=== PATIENT | female | born 1960 | race Caucasian/White ===

== ENCOUNTER → 2019-11-20 09:31 | Outpatient (BNVA) | payer MEDICARE, SELFPAY | PROVIDERS: Family Provider Nurse Practitioner; PCP Nurse Practitioner; Visit Provider Nurse Practitioner | DX: E11.65 Type 2 diabetes mellitus with hyperglycemia (principal); E11.49 Type 2 diabetes mellitus with other diabetic neurological complication; E50.9 Vitamin A deficiency, unspecified | CPT/HCPCS: 80053; 80061; 81003; 82306; 83036 ==

== ENCOUNTER → 2020-02-10 09:51 | Outpatient (BNVA) | payer MEDICARE, SELFPAY | PROVIDERS: Family Provider Nurse Practitioner; PCP Nurse Practitioner; Visit Provider Nurse Practitioner | DX: E11.49 Type 2 diabetes mellitus with other diabetic neurological complication (principal); Z79.4 Long term (current) use of insulin | CPT/HCPCS: 80053; 81000; 83036; 85651 ==

== ENCOUNTER 2020-04-20 06:53 | Outpatient (CLI) | payer MEDICARE, SELFPAY ==
[2020-04-20 07:12] VITALS: BMI 40.2
--- NOTE | 2020-04-20 07:34 | ECG_ITS ---
NAME OF STUDY: LEXISCAN SESTAMIBI STRESS TEST INDICATION: Chest Pain, LEXISCAN STRESS TEST ORDERING PHYSICIAN: Angie CLINICAL INFORMATION: Chest pain INTERPRETATION: 1. The patient was brought to the laboratory where Lexiscan was infused over 20 seconds. The resting blood pressure was 139/74. Maximum blood pressure was 212/66. The resting heart rate was 79 beats per minute. The maximum heart rate is 105 beats per minute. 2. The baseline electrocardiogram sinus rhythm with frequent uniform PVCs. 3. With Lexiscan infusion, there were no ST segment changes to suggest ischemia. 4. The patient experienced no symptoms or arrhythmias during the examination. CONCLUSION: 1. Unremarkable Lexiscan infusion. 2. Nuclear imaging to follow. Electronically Signed On 04-20-2020 15:53:42 CDT by Sander Adams M.D. [email or web address]
--- NOTE | 2020-04-20 07:35 | NMCV_ITS ---
NM riddhi perf SPECT r/s* [id number] Beatrice Gaytan Age: 59 Gender: F : 1960 Exam Date: 04/20/2020 07:54 Ordering Phys: Sander Adams MD ([email or web address]) Technologist: MARION Starks Exam Location: [facility] Indications: Chest pain STRESS TEST Please see separate stress test report in [facility] for full findings IMAGE PROTOCOL Rest/Stress 1 Lexiscan Day Radiopharmaceutical Dose (mCi) Administration Site Administered by Rest: Tc-99m 10.9 IV MARION Starks Sestamibi Stress:Tc-99m 33.0 IV MARION Starks Sestamibi Rest: 20-Apr-2020 60 Discovery 630 Stress: 20-Apr-2020 45 Discovery 630 0.4mg Lexiscan. Images obtained in supine and prone position. SPECT RESULTS Technical Quality: Good Raw Data Analysis: Breast attenuation, Subdiaphragmatic activity Image Corrections: No attenuation or motion correction applied Summed Stress Score: 6 Summed Rest Score: 4 Summed Difference Score: 3 PERFUSION FINDINGS Medium-sized area of patchy decreased tracer uptake noted in mid to distal anterior wall on the rest images which improved significantly over stress images suggestive of artifact. FUNCTIONAL RESULTS (calculated via Gated SPECT) Stress Image LV EF (%): 49 Stress EDV (mL):90 TID: 1.23 Stress ESV (mL):46 Rest Image LV EF (%): 49 FUNCTIONAL FINDINGS: There is normal left ventricular systolic function. IMPRESSIONS This study is negative for ischemia TID ratio was elevated 1.2, which could be secondary to left-ventricular hypertrophy/subendocardial ischemia however cannot rule out multivessel coronary artery disease, clinical correlation advised. EKG segment will be documented separately. Noemy Martini MD (Electronically Signed) Final Date: 21 April 2020 17:41 S
[2020-04-20] MEDS: regadenoson 0.4 Mg/5 ml Syringe IVP (08:46)
[2020-04-20 08:49] VITALS: BP 192/62; PULSE 100
== END 2020-04-20 06:54 | disposition home or self-care (01) ==
LOC: RAD 06:55 → CDL 07:00
PROVIDERS: PCP Nurse Practitioner; Visit Provider Internal Medicine Cardiovascular Disease
DX: R07.9 Chest pain, unspecified (principal); R94.39 Abnormal result of other cardiovascular function study
CPT/HCPCS: 78452; 93017; A9500; J2785

== ENCOUNTER → 2020-05-19 09:01 | Outpatient (BNVA) | payer MEDICARE, SELFPAY | PROVIDERS: PCP Nurse Practitioner; Visit Provider Nurse Practitioner | DX: E11.49 Type 2 diabetes mellitus with other diabetic neurological complication (principal); E78.5 Hyperlipidemia, unspecified; I10 Essential (primary) hypertension; Z79.4 Long term (current) use of insulin; M79.7 Fibromyalgia | CPT/HCPCS: 80053; 80061; 81000; 83036; 85651 ==

== ENCOUNTER → 2020-05-26 10:08 | Outpatient (BNVA) | payer MEDICARE, SELFPAY | PROVIDERS: PCP Nurse Practitioner; Visit Provider Nurse Practitioner | DX: M54.2 Cervicalgia (principal); M54.9 Dorsalgia, unspecified | CPT/HCPCS: 72040; 72072 ==

== ENCOUNTER 2020-06-07 14:44 | Outpatient (CLI) | payer MEDICARE, SELFPAY ==
--- NOTE | 2020-06-07 15:30 | CT_ITS ---
WS: [id number] CT THORACIC SPINE HISTORY: Fracture TECHNIQUE: Contiguous 2.5 mm axial images are reviewed to thoracic spine. Images are reformatted in s agittal and coronal planes. All CT scans at [facility] use at least one of these dose opt imization techniques: automated exposure control; mA and/or kV adjustment per patient size (includes targeted exams where dose is matched to clinical indication); or iterative reconstruction. DLP: 1112.75 mGycm COMPARISON: 05/26/2020 radiographs. Very slight mild anterior wedging of T5 by 10%. No acute fracture lines are evident. No adjacent soft tissue edema. There is mild disc space narrowing and desiccation and small osteophytes throughout th e thoracic spine. T1-2: Normal. T2-3: Normal. T3-4: Normal. T4-5: Normal. T5-6: Normal. T6-7: Normal. T7-8: Normal. T8-9: Normal. T9-10: Normal. T10-11: Normal. T11-12: Normal. Paravertebral soft tissues are normal. CT/CT thoracic spin wo con* [id number] IMPRESSION: 1. Very minimal anterior wedging of T5. No acute fracture line identified. 2. No significant central or foraminal stenosis.
--- NOTE | 2020-06-07 15:45 | CT_ITS ---
WS: [id number] CT LUMBAR SPINE, noncontrast. HISTORY: Low back pain TECHNIQUE: Contiguous 2.5 mm axial imaging are performed. Sagittal and coronal reformats are submitte d and reviewed. All CT scans at [facility] use at least one of these dose optimization te chniques: automated exposure control; mA and/or kV adjustment per patient size (includes targeted exa ms where dose is matched to clinical indication); or iterative reconstruction. IV contrast: None DLP: 1714.17 mGycm COMPARISON: 10/15/2018 Mild straightening of the normal lumbar lordosis. Prior posterior lumbar fusion at L5-S1 with interbo dy spacer. No change in the lucency associated with the LEFT S1 pedicle screw. L5 anterolisthesis by 5 mm is unchanged. Severe disc space narrowing at L5-S1 with posterior osteophytes. L1-2: Normal. L2-3: Mild annular disc bulging. No stenosis. L3-4: Mild annular disc bulging with no stenosis. L4-5: Mild annular disc bulging. Mild ligamentum flavum hypertrophy and facet arthritis. Mild central stenosis and bilateral foraminal stenosis. Similar to the prior study. L5-S1: Osteophytic ridging with large posterior laminectomy defects. No central stenosis. There is os teophyte encroachment into the foramen, RIGHT greater than LEFT. Similar to the prior study. No posto perative complications are evident. Scattered calcification within the aorta. No aneurysm. CT/CT lumbar spine wo con* [id number] IMPRESSION: 1. Status post posterior lumbar fusion at L5-S1 with large laminectomy defects . No complications. 2. Small amount of lucency along the S1 pedicle screw is unchanged. 3. Mild bilateral foraminal narrowing at L4-5 and L5-S1.
== END 2020-06-07 14:45 | disposition home or self-care (01) ==
LOC: RADWPI 14:49
PROVIDERS: Family Provider Nurse Practitioner; PCP Nurse Practitioner; Visit Provider Licensed Practical Nurse
DX: M54.5 Low back pain (principal); S22.050A Wedge compression fracture of T5-T6 vertebra, initial encounter for closed fracture; X58.XXXA Exposure to other specified factors, initial encounter; M43.27 Fusion of spine, lumbosacral region; M48.061 Spinal stenosis, lumbar region without neurogenic claudication
CPT/HCPCS: 72128; 72131

== ENCOUNTER → 2020-08-20 08:35 | Outpatient (BNVA) | payer MEDICARE, SELFPAY | PROVIDERS: Family Provider Nurse Practitioner; PCP Nurse Practitioner; Visit Provider Nurse Practitioner | DX: E11.49 Type 2 diabetes mellitus with other diabetic neurological complication (principal); E78.5 Hyperlipidemia, unspecified; I10 Essential (primary) hypertension; Z79.4 Long term (current) use of insulin; E55.9 Vitamin D deficiency, unspecified | CPT/HCPCS: 80053; 80061; 81000; 82306; 83036 ==

== ENCOUNTER → 2020-11-16 09:02 | Outpatient (BNVA) | payer MEDICARE, SELFPAY | PROVIDERS: Family Provider Nurse Practitioner; PCP Nurse Practitioner; Visit Provider Nurse Practitioner | DX: E11.49 Type 2 diabetes mellitus with other diabetic neurological complication (principal); Z79.4 Long term (current) use of insulin; I10 Essential (primary) hypertension; J43.8 Other emphysema; Z20.828 Contact with and (suspected) exposure to other viral communicable diseases; E55.9 Vitamin D deficiency, unspecified | CPT/HCPCS: 80053; 80061; 81000; 82306; 83036; 85025; 87635 ==

== ENCOUNTER → 2021-02-18 08:10 | Outpatient (BNVA) | payer MEDICARE, SELFPAY | PROVIDERS: Family Provider Nurse Practitioner; PCP Nurse Practitioner; Visit Provider Nurse Practitioner | DX: E55.9 Vitamin D deficiency, unspecified (principal); J43.8 Other emphysema; I10 Essential (primary) hypertension; E11.49 Type 2 diabetes mellitus with other diabetic neurological complication; Z79.4 Long term (current) use of insulin; E78.5 Hyperlipidemia, unspecified | CPT/HCPCS: 80053; 80061; 81000; 82306; 83036 ==

== ENCOUNTER → 2021-02-21 10:08 | Outpatient (BNVA) | payer MEDICARE, SELFPAY | PROVIDERS: Family Provider Nurse Practitioner; PCP Nurse Practitioner; Visit Provider Nurse Practitioner | DX: J43.8 Other emphysema (principal); G62.9 Polyneuropathy, unspecified; I10 Essential (primary) hypertension; E11.49 Type 2 diabetes mellitus with other diabetic neurological complication; E78.5 Hyperlipidemia, unspecified; E11.69 Type 2 diabetes mellitus with other specified complication; G47.00 Insomnia, unspecified; Z79.4 Long term (current) use of insulin | CPT/HCPCS: 82607 ==

== ENCOUNTER → 2021-05-09 09:11 | Outpatient (BNVA) | payer MEDICARE, SELFPAY | PROVIDERS: Family Provider Nurse Practitioner; PCP Nurse Practitioner; Visit Provider Nurse Practitioner | DX: E55.9 Vitamin D deficiency, unspecified (principal); E11.49 Type 2 diabetes mellitus with other diabetic neurological complication; Z79.4 Long term (current) use of insulin; I10 Essential (primary) hypertension; R82.90 Unspecified abnormal findings in urine | CPT/HCPCS: 80053; 80061; 81000; 82306; 83036; 85025; 87077; 87086; 87184 ==

== ENCOUNTER → 2021-05-23 09:03 | Outpatient (BNVA) | payer MEDICARE, SELFPAY | PROVIDERS: Family Provider Nurse Practitioner; PCP Nurse Practitioner; Visit Provider Nurse Practitioner | DX: N39.0 Urinary tract infection, site not specified (principal); B96.20 Unspecified Escherichia coli [E. coli] as the cause of diseases classified elsewhere; R39.15 Urgency of urination | CPT/HCPCS: 81000 ==

== ENCOUNTER → 2021-06-29 15:58 | Outpatient (BNVA) | payer MEDICARE, SELFPAY | PROVIDERS: Family Provider Nurse Practitioner; PCP Nurse Practitioner; Visit Provider Nurse Practitioner Family | DX: M25.532 Pain in left wrist (principal) | CPT/HCPCS: 73110 ==

== ENCOUNTER → 2021-08-10 08:12 | Outpatient (BNVA) | payer MEDICARE, SELFPAY | PROVIDERS: Family Provider Nurse Practitioner; PCP Nurse Practitioner; Visit Provider Nurse Practitioner | DX: E55.9 Vitamin D deficiency, unspecified (principal); I10 Essential (primary) hypertension; E11.40 Type 2 diabetes mellitus with diabetic neuropathy, unspecified; Z79.4 Long term (current) use of insulin | CPT/HCPCS: 80053; 80061; 81000; 82306; 83036 ==

== ENCOUNTER 2021-08-29 07:47 | Outpatient (CLI) | payer MEDICARE, SELFPAY ==
--- NOTE | 2021-08-29 08:12 | MR_ITS ---
WS: [id number] MRI LEFT WRIST without CONTRAST. COMPARISON: Radiograph 06/29/2021 Multiplanar, multisequence imaging is performed without contrast. Nondisplaced fracture is identified at the base of the radial styloid. There is increased T2 signal o n the STIR and proton density sequences at the base of the radial styloid. There is not a significant amount of healing or callus formation or fibrous connection. No significant osteonecrosis of the dis xuan fragment. There are few small cysts within the capitate. The navicular appears intact. Scapholunate interval an d the ligament are negative. There is a small amount of edema within the tendon sheath of the extenso r pollicis brevis tendon and the abductor pollicis longus tendon. No additional soft tissue or bone a bnormalities are identified. MR/MR wrist LT wo con* [id number] IMPRESSION: 1. Nondisplaced and nonunion fracture at the base of the radial styloid. 2. Very mild tenosynovitis in the tendon sheath of the extensor pollicis brevi s and the abductor pollicis longus tendons.
== END 2021-08-29 07:48 | disposition home or self-care (01) ==
PROVIDERS: PCP Nurse Practitioner; Visit Provider Nurse Practitioner
DX: S52.515A Nondisplaced fracture of left radial styloid process, initial encounter for closed fracture (principal); X58.XXXA Exposure to other specified factors, initial encounter; M65.88 Other synovitis and tenosynovitis, other site
CPT/HCPCS: 73221

== ENCOUNTER → 2021-09-19 08:39 | Outpatient (BNVA) | payer MEDICARE, SELFPAY | PROVIDERS: PCP Nurse Practitioner; Visit Provider Family Medicine | DX: E11.40 Type 2 diabetes mellitus with diabetic neuropathy, unspecified (principal); Z79.4 Long term (current) use of insulin | CPT/HCPCS: 81000 ==

== ENCOUNTER → 2021-11-14 09:20 | Outpatient (BNVA) | payer MEDICARE, SELFPAY | PROVIDERS: PCP Nurse Practitioner; Visit Provider Nurse Practitioner | DX: E11.40 Type 2 diabetes mellitus with diabetic neuropathy, unspecified (principal); Z79.4 Long term (current) use of insulin; E55.9 Vitamin D deficiency, unspecified | CPT/HCPCS: 80053; 80061; 81000; 82306; 83036 ==

== ENCOUNTER → 2021-11-16 11:08 | Outpatient (BNVA) | payer MEDICARE, SELFPAY | PROVIDERS: PCP Nurse Practitioner; Visit Provider Nurse Practitioner | DX: S52.515A Nondisplaced fracture of left radial styloid process, initial encounter for closed fracture (principal); X58.XXXA Exposure to other specified factors, initial encounter | CPT/HCPCS: 73110 ==

== ENCOUNTER → 2022-02-14 08:09 | Outpatient (BNVA) | payer MEDICARE, SELFPAY | PROVIDERS: PCP Nurse Practitioner; Visit Provider Nurse Practitioner | DX: E11.49 Type 2 diabetes mellitus with other diabetic neurological complication (principal); Z79.4 Long term (current) use of insulin; E55.9 Vitamin D deficiency, unspecified; N39.0 Urinary tract infection, site not specified | CPT/HCPCS: 80053; 80061; 81000; 82306; 83036; 87077; 87086; 87184 ==

== ENCOUNTER → 2022-02-22 10:05 | Outpatient (BNVA) | payer MEDICARE, SELFPAY | PROVIDERS: PCP Nurse Practitioner; Visit Provider Nurse Practitioner | DX: E11.40 Type 2 diabetes mellitus with diabetic neuropathy, unspecified (principal); Z79.4 Long term (current) use of insulin | CPT/HCPCS: 81000 ==

== ENCOUNTER → 2022-05-22 10:40 | Outpatient (BNVA) | payer MEDICARE, SELFPAY | PROVIDERS: PCP Nurse Practitioner; Visit Provider Nurse Practitioner | DX: E11.49 Type 2 diabetes mellitus with other diabetic neurological complication (principal); Z79.4 Long term (current) use of insulin; I10 Essential (primary) hypertension; E55.9 Vitamin D deficiency, unspecified; E11.65 Type 2 diabetes mellitus with hyperglycemia | CPT/HCPCS: 80053; 80061; 81000; 82306; 83036; 84443; 85025 ==

== ENCOUNTER 2022-07-09 14:00 | Observation (INO) | payer MEDICARE, SELFPAY ==
[2022-07-09] VITALS (9 sets, daily range): BP systolic 100–142; BP diastolic 48–78; PULSE 79–87; RESP 16–20; TEMP 37.8; O2SAT 91–97; BMI 37.4
--- NOTE | 2022-07-09 15:01 | XRR_ITS ---
PROCEDURE INFORMATION: Exam: XR Chest Exam date and time: 07/09/2022 3:52 PM Age: 61 years old Clinical indication: Fever; Additional info: Cough, fever TECHNIQUE: Imaging protocol: Radiologic exam of the chest. Views: 1 view. Other technique: Frontal portable upright view of the chest. COMPARISON: CR Chest 2 views* [id number] 11/22/2015 12:46 PM FINDINGS: Lungs: Left lateral basilar infiltrate. The lungs are otherwise peripherally clear bilaterally. The pulmonary vasculature is normal. Pleural spaces: No definite pleural effusion. No pneumothorax. Heart/Mediastinum: The heart is normal in size and contour. Mediastinum: Stable. Vasculature: Mild aortic arch and descending thoracic aortic atherosclerotic calcification without ectasia. Bones/joints: Stable. XR/XR chest 1V portable [id number] IMPRESSION: Left lateral basilar infiltrate. Pneumonitis is difficult to exclude. Clinical correlation is recommended.
--- NOTE | 2022-07-09 15:28 | W.ED.FEMALGU ---
Documented by User: Maryam Desir MD 07/09/22 18:26 HPI - Female Genitourinary General: Chief complaint: Urogenital-Female Stated complaint: UTI, fever Time Seen by Provider: 07/09/22 14:39 History of Present Illness: This patient is a 61 year old female presenting with fever, cough, sore throat, diarrhea with incontinence and some confusion and weakness. She has lower back pain and body aches. She thinks that she has a kidney infection. She says that she has had UTIs before and that is why she thinks that is the cause of this. She has had symptoms for 3 or 4 days. She has had a fever of 101 - 102 at home. She has many allergies to antibiotics and normally treats her UTIs with natural treatment casper the supervision of Dr. Nowak. She does say that although doxycycline is on her allergy list, she has taken it in the past and tolerated it. Associated symptoms: Reports nausea; Deny abdominal pain or headache(s) Review of Systems Const: Denies: fever(s), chills, fatigue or malaise Eyes: Denies: change in vision ENMT: Reports: throat pain and nasal discharge Card: Denies: chest pain or swelling of feet/ankles Resp: Reports: non-productive cough; Denies: dyspnea or productive cough GI: Reports: nausea and diarrhea; Denies: abdominal pain or vomiting : Reports: flank pain, difficulty voiding and dribbling Musc: Reports: back pain; Denies: neck pain Skin/Breast: Denies: rash Neuro: Denies: headache(s), numbness in extremities or weakness in extremities Endo: Denies: polyuria or polydipsia Eamon/Lymph: Denies: easy bruising or easy bleeding [facility] ED PFSH: Medical History Benign essential hypertension with target blood pressure below 140/90 CAD (coronary artery disease) 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 Jan Cottrell L5-S1 reexploration/fusion/fixation History of colon surgery 1980 History of hysterectomy 1984 History of lumpectomy of left breast 1998 Hx of heart artery stent Family History Mother Lung disease Lung Cancer Heart disease Grandmother Diabetes Family/Other Diabetes Family/Other Heart disease Lung disease Social History Smoking and tobacco status: former smoker Second hand smoke exposure: No Smoking risk assessment/counseling performed?: No Alcohol intake: never Desire information about alcohol rehabilitation?: No Counseling given: No Desire information about substance/drug rehabilitation?: No Counseling given: No Adopted: No Caregiver/support person: No Lives independently: Yes Household members: spouse Housing: House Marital status: service: No Current occupational status: disabled History of recent travel: No Current gender identity: Female Physical Exam Const: COMMON NORMALS: no limitations and alert GENERAL APPEARANCE: cooperative and ill appearing; not comfortable and not well hydrated HENMT: HEAD & SCALP: normal to inspection FACE & SINUS: normal facial exam Eye: GENERAL EYE: appearance normal, both eyes and all related structures Neck/C-Spine: COMMON NORMALS: supple, no meningeal signs and no JVD Chest: COMMONS NORMALS: normal inspection of the chest Resp: COMMON NORMALS: normal respiratory effort, No use of accessory muscles and clear to auscultation bilaterally AUSCULTATION: clear to auscultation bilaterally Cardio: COMMON NORMALS: no JVD, regular rate, regular rhythm and No murmurs present (Cardio) RATE: regular rate RHYTHM: regular rhythm GI: COMMON NORMALS: Normal to inspection, nondistended, normoactive bowel sounds present, Soft to palpation and non-tender INSPECTION: Yes normal to inspection AUSCULTATION: Yes normoactive bowel sounds PALPATION: Yes Soft to palpation Back/Pelvis: COMMON NORMALS: thoracic and lumbar spine normal to inspection Extremity: COMMON NORMALS: normal to inspection Neuro: COMMON NORMALS: moves all extremities, no focal motor deficits and no sensory deficits noted SENSORIUM/ORIENTATION: Yes alert MENINGEAL SIGNS: Yes no meningeal signs Psych: COMMON NORMALS: mental status grossly normal, cooperative and normal affect Skin: COMMON NORMALS: no rashes or lesions noted and turgor normal GENERAL SKIN EXAM: no rashes or lesions noted and turgor normal Course Vital Signs: Vital signs: Vital Signs Temperature 100.1 F H 07/09/22 14:13 Pulse Rate 83 07/09/22 20:00 Respiratory Rate 17 07/09/22 20:00 Blood Pressure 109/78 07/09/22 20:00 Pulse Oximetry 96 07/09/22 20:00 Oxygen Delivery Me thod 07/09/22 18:00 MDM - Female Medical Decision Making Patient appears ill and dehydrated. She has symptoms more suggestive of COVID than a UTI however pyelo is in the differential. She was given IV fluids and hasn't been able to give a urine yet. In and out cath ordered. Renal function is compromised. Covid swab is also still pending. Regardless of results of UA or COVID, she will need to be admitted due to the acute kidney injury. Care turned over to Dr. Moreno at shift change. Lab Data : 07/09/22 16:02 07/09/22 17:05 Radiology Impressions Chest X-Ray 07/09/22 15:01 IMPRESSION: Left lateral basilar infiltrate. Pneumonitis is difficult to exclude. Clinical correlation is recommended. Laboratory Results WBC 9.7 10^3/uL (4.0-10.0) 07/09/22 16:02 RBC 4.14 10^6/uL (4.1-5.3) 07/09/22 16:02 Hgb 12.6 g/dL (11.5-15.3) 07/09/22 16:02 Hct 40.2 % (37.0-47.0) 07/09/22 16:02 MCV 97.1 fl (81-99) 07/09/22 16:02 MCH 30.4 pg (28.0-34.0) 07/09/22 16:02 MCHC 31.3 g/dL (30.0-36.0) 07/09/22 16:02 RDW 14.5 % (12.1-15.1) 07/09/22 16:02 Plt Count 233 10^3/cmm (130-400) 07/09/22 16:02 MPV 10.0 fL (7.4-10.4) 07/09/22 16:02 Neut % (Auto) 55.9 % 07/09/22 16:02 Lymph % (Auto) 26.5 % 07/09/22 16:02 Charlton % (Auto) 16.6 % 07/09/22 16:02 Eos % (Auto) 0.2 % 07/09/22 16:02 Baso % (Auto) 0.4 % 07/09/22 16:02 Neut # (Auto) 5.40 10^3/uL (1.8-7.7) 07/09/22 16:02 Lymph # (Auto) 2.6 10^3/uL (0.8-4.8) 07/09/22 16:02 Charlton # (Auto) 1.6 10^3/uL (0.2-0.9) H 07/09/22 16:02 Eos # (Auto) 0.0 10^3/uL (0.0-0.8) 07/09/22 16:02 Baso # (Auto) 0.0 10^3/uL (0.0-0.1) 07/09/22 16:02 Nucleated RBC % (auto) 0 % 07/09/22 16:02 Nucleated RBCs # 0.0 /100WBC 07/09/22 16:02 Sodium 138 mmol/L (136-145) 07/09/22 17:05 Potassium 4.1 mmol/L (3.5-5.1) 07/09/22 17:05 Chloride 105 mmol/L (98-107) 07/09/22 17:05 Carbon Dioxide 22 mmol/L (22-29) 07/09/22 17:05 Anion Gap 15.1 (5-19) 07/09/22 17:05 BUN 45 mg/dL (8-23) H 07/09/22 17:05 Creatinine 2.2 mg/dL (0.5-0.9) H 07/09/22 17:05 GFR Calculation 22.6 mL/min (90-130) L 07/09/22 17:05 Glucose 148 mg/dL (65-115) H 07/09/22 17:05 Calculated Osmolality 300 mOsm/kg (285-295) H 07/09/22 17:05 Lactic Acid 1.1 mmol/L (0.5-2.2) 07/09/22 17:05 Lactate Cancelled 07/09/22 16:02 Calcium 8.2 mg/dL (8.5-10.5) L 07/09/22 17:05 Total Bilirubin 0.2 mg/dL (0.15-1.2) 07/09/22 17:05 AST 139 U/L (0-32) H 07/09/22 17:05 ALT 99 U/L (0-33) H 07/09/22 17:05 Alkaline Phosphatase 31 U/L (35-105) L 07/09/22 17:05 C-Reactive Protein 4.1 mg/L (0.0-4.9) 07/09/22 17:05 Total Protein 6.8 g/dL (6.6-8.7) 07/09/22 17:05 Albumin 3.7 g/dL (3.5-5.2) 07/09/22 17:05 Globulin 3.1 g/dL (1.3-4.6) 07/09/22 17:05 Lipase 71 U/L (13-60) H 07/09/22 17:05 Procalcitonin 0.15 ng/mL (0-0.5) 07/09/22 17:05 Urine Color Yellow (Yellow) 07/09/22 18:18 Urine Appearance Sl hazy (CLEAR) 07/09/22 18:18 Urine pH 5 (5-7) 07/09/22 18:18 Ur Specific Lindsay 1.015 (1.005-1.030) 07/09/22 18:18 Urine Protein Neg (Negative) 07/09/22 18:18 Urine Glucose (UA) Norm (Normal) 07/09/22 18:18 Urine Ketones 1+ (Negative) H 07/09/22 18:18 Urine Blood Neg (Negative) 07/09/22 18:18 Urine Nitrate Negative (Negative) 07/09/22 18:18 Urine Bilirubin Neg (Negative) 07/09/22 18:18 Urine Urobilinogen Norm mg/dL (Negative) 07/09/22 18:18 Ur Leukocyte Esterase Negative (Negative) 07/09/22 18:18 Urine RBC 0-4 /hpf (0-2) H 07/09/22 18:18 Urine WBC 0-4 /hpf (0-5) H 07/09/22 18:18 Ur Squamous Epith Cells 0-4 /hpf (0-5) H 07/09/22 18:18 Amorphous Sediment Not Reportable 07/09/22 18:18 Urine Bacteria 2+ /hpf (NONE) H 07/09/22 18:18 Hyaline Casts 0-4 /lpf H 07/09/22 18:18 Coronavirus 229E (PCR) Not detected (NOT DETECT) 07/09/22 16:05 SARS-CoV-2 (PCR) Detected (NOT DETECT) A 07/09/22 16:05 Discharge Plan Discharge Patient Disposition: Admitted As Inpatient Clinical Impression: Acute kidney injury, COPD (chronic obstructive pulmonary disease) with emphysema, Diabetes mellitus with neurologic complication, with long-term current use of insulin, Acute dehydration, Diarrhea Condition: Stable Coding Level of Care Code ED Charting Clerk for Chg Fwd Exam Comprehensive Documented by User: Anjum Moreno DO 07/09/22 22:59 HPI - Female Genitourinary General: Chief complaint: Urogenital-Female Stated complaint: UTI, fever Time Seen by Provider: 07/09/22 14:39 PFSH ED PFSH: Medical History Benign essential hypertension with target blood pressure below 140/90 CAD (coronary artery disease) 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 Jan Cottrell L5-S1 reexploration/fusion/fixation History of colon surgery 1980 History of hysterectomy 1984 History of lumpectomy of left breast 1998 Hx of heart artery stent Family History Mother Lung disease Lung Cancer Heart disease Grandmother Diabetes Family/Other Diabetes Family/Other Heart disease Lung disease Social History Smoking and tobacco status: former smoker Second hand smoke exposure: No Smoking risk assessment/counseling performed?: No Alcohol intake: never Desire information about alcohol rehabilitation?: No Counseling given: No Desire information about substance/drug rehabilitation?: No Counseling given: No Adopted: No Caregiver/support person: No Lives independently: Yes Household members: spouse Housing: House Marital status: service: No Current occupational status: disabled History of recent travel: No Current gender identity: Female Course Vital Signs: Vital signs: Vital Signs Temperature 100.1 F H 07/09/22 14:13 Pulse Rate 83 07/09/22 20:00 Respiratory Rate 17 07/09/22 20:00 Blood Pressure 109/78 07/09/22 20:00 Pulse Oximetry 96 07/09/22 20:00 Oxygen Delivery Me thod 07/09/22 18:00 MDM - Female Medical Decision Making Patient appears ill and dehydrated. She has symptoms more suggestive of COVID than a UTI however pyelo is in the differential. She was given IV fluids and hasn't been able to give a urine yet. In and out cath ordered. Renal function is compromised. Covid swab is also still pending. Regardless of results of UA or COVID, she will need to be admitted due to the acute kidney injury. Care turned over to Dr. Moreno at shift change. 61-year-old female who is ill and dehydrated. She was checked out to me by Dr. Roque at shift change. No UTI by urinalysis. She is positive for COVID. She is generally weak. She has JOSE that is significant. She is having trouble walking. She will be observed for hydration, and monitoring of renal function. Hospitalist will see in the ER. Lab Data : 07/09/22 16:02 07/09/22 17:05 Radiology Impressions Chest X-Ray 07/09/22 15:01 IMPRESSION: Left lateral basilar infiltrate. Pneumonitis is difficult to exclude. Clinical correlation is recommended. Laboratory Results WBC 9.7 10^3/uL (4.0-10.0) 07/09/22 16:02 RBC 4.14 10^6/uL (4.1-5.3) 07/09/22 16:02 Hgb 12.6 g/dL (11.5-15.3) 07/09/22 16:02 Hct 40.2 % (37.0-47.0) 07/09/22 16:02 MCV 97.1 fl (81-99) 07/09/22 16:02 MCH 30.4 pg (28.0-34.0) 07/09/22 16: MCHC 31.3 g/dL (30.0-36.0) 07/09/22 16:02 RDW 14.5 % (12.1-15.1) 07/09/22 16:02 Plt Count 233 10^3/cmm (130-400) 07/09/22 16:02 MPV 10.0 fL (7.4-10.4) 07/09/22 16:02 Neut % (Auto) 55.9 % 07/09/22 16:02 Lymph % (Auto) 26.5 % 07/09/22 16:02 Charlton % (Auto) 16.6 % 07/09/22 16:02 Eos % (Auto) 0.2 % 07/09/22 16:02 Baso % (Auto) 0.4 % 07/09/22 16:02 Neut # (Auto) 5.40 10^3/uL (1.8-7.7) 07/09/22 16:02 Lymph # (Auto) 2.6 10^3/uL (0.8-4.8) 07/09/22 16:02 Charlton # (Auto) 1.6 10^3/uL (0.2-0.9) H 07/09/22 16:02 Eos # (Auto) 0.0 10^3/uL (0.0-0.8) 07/09/22 16:02 Baso # (Auto) 0.0 10^3/uL (0.0-0.1) 07/09/22 16:02 Nucleated RBC % (auto) 0 % 07/09/22 16:02 Nucleated RBCs # 0.0 /100WBC 07/09/22 16:02 Sodium 138 mmol/L (136-145) 07/09/22 17:05 Potassium 4.1 mmol/L (3.5-5.1) 07/09/22 17:05 Chloride 105 mmol/L (98-107) 07/09/22 17:05 Carbon Dioxide 22 mmol/L (22-29) 07/09/22 17:05 Anion Gap 15.1 (5-19) 07/09/22 17:05 BUN 45 mg/dL (8-23) H 07/09/22 17:05 Creatinine 2.2 mg/dL (0.5-0.9) H 07/09/22 17:05 GFR Calculation 22.6 mL/min (90-130) L 07/09/22 17:05 Glucose 148 mg/dL (65-115) H 07/09/22 17:05 Calculated Osmolality 300 mOsm/kg (285-295) H 07/09/22 17:05 Lactic Acid 1.1 mmol/L (0.5-2.2) 07/09/22 17:05 Lactate Cancelled 07/09/22 16:02 Calcium 8.2 mg/dL (8.5-10.5) L 07/09/22 17:05 Total Bilirubin 0.2 mg/dL (0.15-1.2) 07/09/22 17:05 AST 139 U/L (0-32) H 07/09/22 17:05 ALT 99 U/L (0-33) H 07/09/22 17:05 Alkaline Phosphatase 31 U/L (35-105) L 07/09/22 17:05 C-Reactive Protein 4.1 mg/L (0.0-4.9) 07/09/22 17:05 Total Protein 6.8 g/dL (6.6-8.7) 07/09/22 17:05 Albumin 3.7 g/dL (3.5-5.2) 07/09/22 17:05 Globulin 3.1 g/dL (1.3-4.6) 07/09/22 17:05 Lipase 71 U/L (13-60) H 07/09/22 17:05 Procalcitonin 0.15 ng/mL (0-0.5) 07/09/22 17:05 Urine Color Yellow (Yellow) 07/09/22 18:18 Urine Appearance Sl hazy (CLEAR) 07/09/22 18:18 Urine pH 5 (5-7) 07/09/22 18:18 Ur Specific Lindsay 1.015 (1.005-1.030) 07/09/22 18:18 Urine Protein Neg (Negative) 07/09/22 18:18 Urine Glucose (UA) Norm (Normal) 07/09/22 18:18 Urine Ketones 1+ (Negative) H 07/09/22 18:18 Urine Blood Neg (Negative) 07/09/22 18:18 Urine Nitrate Negative (Negative) 07/09/22 18:18 Urine Bilirubin Neg (Negative) 07/09/22 18:18 Urine Urobilinogen Norm mg/dL (Negative) 07/09/22 18:18 Ur Leukocyte Esterase Negative (Negative) 07/09/22 18:18 Urine RBC 0-4 /hpf (0-2) H 07/09/22 18:18 Urine WBC 0-4 /hpf (0-5) H 07/09/22 18:18 Ur Squamous Epith Cells 0-4 /hpf (0-5) H 07/09/22 18:18 Amorphous Sediment Not Reportable 07/09/22 18:18 Urine Bacteria 2+ /hpf (NONE) H 07/09/22 18:18 Hyaline Casts 0-4 /lpf H 07/09/22 18:18 Coronavirus 229E (PCR) Not detected (NOT DETECT) 07/09/22 16:05 SARS-CoV-2 (PCR) Detected (NOT DETECT) A 07/09/22 16:05 Discharge Plan Discharge Patient Disposition: Admitted As Inpatient Clinical Impression: Acute kidney injury, COPD (chronic obstructive pulmonary disease) with emphysema, Diabetes mellitus with neurologic complication, with long-term current use of insulin, Acute dehydration, Diarrhea Condition: Stable Coding Level of Care Code ED Charting Clerk for [place] Fwd Exam Comprehensive
[2022-07-09] MEDS: sodium chloride 0.9% 1,000 ML 999 ML IV (16:14)
[2022-07-09 16:22] LABS: Basophils % 0.4 %; Eosinophils % 0.2 %; Hematocrit 40.2 % (37.0-47.0); Hemoglobin 12.6 g/dL (11.5-15.3); Lymphocytes # 2.6 10^3/uL (0.8-4.8); Lymphocytes % 26.5 %; Mean Corpuscular HGB Conc 31.3 g/dL (30.0-36.0); Mean Corpuscular Hemoglobin 30.4 pg (28.0-34.0); Mean Corpuscular Volume 97.1 fl (81-99); Monocytes # 1.6 10^3/uL (0.2-0.9); Monocytes % 16.6 %; Neutrophils % 55.9 %; Nucleated Red Blood Cells % 0 %; Platelet Count 233 10^3/cmm (130-400); Red Blood Count 4.14 10^6/uL (4.1-5.3); Red Cell Distribution Width 14.5 % (12.1-15.1); White Blood Count 9.7 10^3/uL (4.0-10.0)
[2022-07-09 17:38] LABS: Alanine Aminotransferase 99 U/L (0-33); Albumin Level 3.7 g/dL (3.5-5.2); Alkaline Phosphatase 31 U/L (35-105); Anion Gap 15.1 (5-19); Aspartate Amino Transferase 139 U/L (0-32); Blood Urea Nitrogen 45 mg/dL (8-23); Calcium 8.2 mg/dL (8.5-10.5); Carbon Dioxide 22 mmol/L (22-29); Chloride 105 mmol/L (98-107); Globulin 3.1 g/dL (1.3-4.6); Glomerular Filtration Rate 22.6 mL/min (90-130); Glucose 148 mg/dL (65-115); Osmolality Calculated 300 mOsm/kg (285-295); Potassium 4.1 mmol/L (3.5-5.1); Sodium 138 mmol/L (136-145); Total Bilirubin 0.2 mg/dL (0.15-1.2); Total Protein 6.8 g/dL (6.6-8.7)
[2022-07-09 17:39] LABS: Lactic Sepsis W/Reflex 1.1 mmol/L (0.5-2.2)
[2022-07-09 18:03] LABS: Adenovirus Not Detected (NOT DETECT); Chlamydia Pneumoniae Not Detected (NOT DETECT); Coronavirus 229E,HKU1,NL63,OC4 Not Detected (NOT DETECT); Human Metapneumovirus Not Detected (NOT DETECT); Human Rhinovirus/Enterovirus Not Detected (NOT DETECT); Influenza A Not Detected (NOT DETECT); Influenza A H1 Not Detected (NOT DETECT); Influenza A H1-2009 Not Detected (NOT DETECT); Influenza A H3 Not Detected (NOT DETECT); Influenza B Not Detected (NOT DETECT); Mycoplasma Pneumoniae Not Detected (NOT DETECT); Parainfluenza Virus Type 1 Not Detected (NOT DETECT); Parainfluenza Virus Type 2 Not Detected (NOT DETECT); Parainfluenza Virus Type 3 Not Detected (NOT DETECT); Parainfluenza Virus Type 4 Not Detected (NOT DETECT); Respiratory Syncytial Virus A Not Detected (NOT DETECT); Respiratory Syncytial Virus B Not Detected (NOT DETECT); SARS-COV-2 Detected (NOT DETECT)
[2022-07-09 20:24] LABS: Add Urine Microscopic? YES; Bilirubin Urine Neg (Negative); Blood Urine Neg (Negative); Glucose Urine UA Norm (Normal); Ketones Urine 1+ (Negative); Leukocyte Esterase Urine Negative (Negative); Nitrate Urine Negative (Negative); Protein Urine Neg (Negative); Specific Gravity, Urine 1.015 (1.005-1.030); Urine Appearance SL Hazy (CLEAR); Urine Color Yellow (Yellow); Urobilinogen Urine Norm (Negative); pH Urine 5 (5-7)
[2022-07-09 20:25] LABS: Bacteria Urine 2+ /hpf; RBC Urine 0-4 /hpf (0-2); Squamous Epithelial Cell Urine 0-4 /hpf (0-5); WBC Urine 0-4 /hpf (0-5)
[2022-07-09 20:26] LABS: Add Urine Culture? No; Hyaline Casts Urine 0-4 /lpf
[2022-07-09 21:20] LABS: C Reactive Protein 4.1 mg/L (0.0-4.9); Lipase 71 U/L (13-60)
[2022-07-09 21:27] LABS: Procalcitonin 0.15 ng/mL (0-0.5)
--- NOTE | 2022-07-09 22:08 | PM.HP ---
Providers/Chief Complaint Primary Care Provider: MARTINE Pollock Chief Complaint: UTI, fever History of Present Illness Beatrice Gaytan is a 61 year old female with a past medical history of ED, COPD, insulin-dependent type 2 diabetes mellitus, who presents [facility] due to fatigue, malaise, fevers, nausea, shortness of breath. Patient tells me that she has frequent UTIs, she has been having fevers, fatigue, malaise, has multiple antibiotic allergies, she prefers to treat them using alternative medicine, she was seen in urgent care, told to come to [facility] for evaluation due to concerns for UTI and sepsis. She tells me she has not received the COVID-vaccine as she has an adverse reaction to vaccines, does complain of a cough, does have shortness of breath complains, right now she is her primary complaint is diarrhea and weakness. She does have fatigue and malaise Review of Systems Const: Reports: fever(s), chills, body aches, fatigue and malaise Card: Denies: chest pain Resp: Reports: dyspnea and non-productive cough GI: Reports: nausea and diarrhea; Denies: abdominal pain Medications/Allergies Home Medications Medication Instructions Recorded Confirmed Last Taken Type nebulizer and compressor #1 ea 11/24/19 07/09/22 Unknown History nitroglycerin 0.4 mg sublingual 0.4 mg sublingual Q5MIN PRN Chest 11/24/19 07/09/22 Unknown History tablet Pain insulin syringe-needle U-100 1 mL #100 ea 08/12/21 07/09/22 Unknown Rx 31 gauge x 5/16 nebulizer and compressor (Portable #1 ea 08/12/21 07/09/22 Unknown Rx Nebulizer System) blood sugar diagnostic (Easy Touch #100 ea 02/16/22 07/09/22 Unknown Rx Angel Link Test Strip) blood-glucose meter (Easy-Touch #1 ea 02/16/22 07/09/22 Unknown Rx Blood Glucose Meter) lancets 32 gauge (Easy Touch #100 ea 02/16/22 07/09/22 Unknown Rx Lancets) lancing device (Easy Touch Lancing #1 ea 02/16/22 07/09/22 Unknown Rx Device) albuterol sulfate 2.5 mg (3 mL) inhalation Q4H PRN 05/29/22 07/09/22 Unknown Rx shortness of breath or wheezing #180 mL albuterol sulfate 90 mcg/actuation 2 puff inhalation Q6H PRN 05/29/22 07/09/22 Unknown Rx aerosol inhaler shortness of breath or wheezing #18 grams fenofibrate nanocrystallized 145 145 mg PO DAILY #90 tabs 05/29/22 07/09/22 07/08/22 Rx mg tablet furosemide 20 mg tablet 20 mg PO BID PRN edema #180 tabs 05/29/22 07/09/22 07/09/22 Rx insulin glargine 100 unit/mL 40 unit (0.4 mL) SUBCUT DAILY 30 05/29/22 07/09/22 07/09/22 Rx subcutaneous solution days #30 mL insulin lispro 100 unit/mL 12 - 21 unit (0.12 - 0.21 mL) 05/29/22 07/09/22 Unknown Rx subcutaneous solution (Humalog SUBCUT TID 30 days #45 mL U-100 Insulin) lisinopril 20 mg tablet 20 mg PO BID #180 tabs 05/29/22 07/09/22 07/09/22 Rx metoprolol tartrate 100 mg tablet 100 mg PO BID #180 tabs 05/29/22 07/09/22 07/09/22 Rx topiramate 50 mg tablet (Topamax) 50 mg PO BID #180 tabs 05/29/22 07/09/22 07/09/22 Rx trazodone 300 mg tablet 300 mg PO BEDTIME 07/09/22 07/09/22 07/08/22 History Allergies Allergy/AdvReac Type Severity Reaction Status Date / Time aspirin Allergy Unknown Unknown Verified 07/09/22 13:34 bisacodyl Allergy Unknown ALGY-Hives Verified 07/09/22 13:34 [From Dulcolax (bisacodyl)] dextromethorphan Allergy Unknown ALGY-Anaphy Verified 07/09/22 13:34 [From NyQuil] laxis doxycycline Allergy Unknown Unknown Verified 07/09/22 13:34 doxylamine [From NyQuil] Allergy Unknown ALGY-Anaphy Verified 07/09/22 13:34 laxis empagliflozin Allergy Unknown ADR-Itching Verified 07/09/22 13:34 [From Jardiance] epinephrine Allergy Unknown Unknown Verified 07/09/22 13:34 [From Epi E-Z Pen] insulin detemir Allergy Unknown ALGY-Difficulty Verified 07/09/22 13:34 [From Levemir U-100 Insulin] Breathing levofloxacin [From Levaquin] Allergy Unknown Unknown Verified 07/09/22 13:34 nitrofurantoin Allergy Unknown ALGY-Hives Verified 07/09/22 13:34 [From Macrobid] Penicillins Allergy Unknown ALGY-Anaphy Verified 07/09/22 13:34 laxis pseudoephedrine Allergy Unknown ALGY-Hives Verified 07/09/22 13:34 [From Sudafed] acetaminophen [From Tylenol] Allergy ALGY-Hives Verified 07/09/22 13:34 guaifenesin [From Mucinex DM] Allergy Nasal Verified 07/09/22 13:34 Bleed PFSH Acute PFSH: Medical History Benign essential hypertension with target blood pressure below 140/90 CAD (coronary artery disease) 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 Jan Cottrell L5-S1 reexploration/fusion/fixation History of colon surgery 1980 History of hysterectomy 1984 History of lumpectomy of left breast 1998 Hx of heart artery stent Family History Mother Lung disease Lung Cancer Heart disease Grandmother Diabetes Family/Other Diabetes Family/Other Heart disease Lung disease Social History Smoking and tobacco status: former smoker Second hand smoke exposure: No Smoking risk assessment/counseling performed?: No Alcohol intake: never Desire information about alcohol rehabilitation?: No Counseling given: No Desire information about substance/drug rehabilitation?: No Counseling given: No Adopted: No Caregiver/support person: No Lives independently: Yes Household members: spouse Housing: House Marital status: service: No Current occupational status: disabled History of recent travel: No Current gender identity: Female Vitals/I&O/Wt Last Vital Signs Temp 100.1 F H 07/09/22 14:13 Pulse 83 07/09/22 20:00 Resp 17 07/09/22 20:00 BP 109/78 07/09/22 20:00 Pulse Ox 96 07/09/22 20:00 O2 Del Method 07/09/22 18:00 Weight last 48 hrs Weight 102.058 kg Physical Exam Const: COMMON NORMALS: no acute distress and patient oriented x3 HENMT: COMMON NORMALS: normocephalic HEAD & SCALP: normocephalic Eye: COMMON NORMALS: Equal, round and reactive pupils present and EOMs intact bilaterally Neck/C-Spine: COMMON NORMALS: no JVD Resp: COMMON NORMALS: normal respiratory effort, No retractions, No use of accessory muscles and clear to auscultation bilaterally AUSCULTATION: clear to auscultation bilaterally Cardio: COMMON NORMALS: no JVD, regular rate, regular rhythm, S1 normal heart sound present and S2 normal heart sound present RATE: regular rate RHYTHM: regular rhythm HEART SOUNDS: S1 normal heart sound present and S2 normal heart sound present GI: COMMON NORMALS: Normal to inspection, nondistended, normoactive bowel sounds present, Soft to palpation, non-tender, No hepatosplenomegaly present, no masses and no bruits PALPATION: Yes Soft to palpation and Yes No hepatosplenomegaly present Extremity: COMMON NORMALS: capillary refill normal, no clubbing, cyanosis or edema, no calf tenderness and no pedal edema Neuro: COMMON NORMALS: patient oriented x3 Psych: COMMON NORMALS: mental status grossly normal Data : 07/09/22 16:02 07/09/22 17:05 Micro: Microbiology 07/09/22 21:07 Blood Culture - Preliminary Blood SPECIMEN COLLECTED 07/09/22 21:07 Blood Culture - Preliminary Blood SPECIMEN COLLECTED A&P Assessment and plan (1) Acute kidney injury: Status: Acute (2) Acute dehydration: Status: Acute (3) CKD (chronic kidney disease) stage 2, GFR 60-89 ml/min: Status: Chronic (4) Pneumonia due to COVID-19 virus: Status: Acute Plan COVID-19 pneumonia -Sputum cultures, blood cultures -Decadron 6 mg IV push every 24 hours -DuoNebs, budesonide -Patient is not requiring any oxygen, does not qualify for remdesivir -She does qualify for Paxilovid, on discharge -DNR/DNI -Lovenox for DVT prophylaxis Patient does have a left lower lobe infiltrate on chest x-ray, concerning for COVID-19 pneumonia versus secondary bacterial pneumonia -She is very resistant on trying any antibiotics -She is agreeable to try doxycycline -As above Diarrhea, likely secondary COVID-19, monitor IV hydration Transaminitis, likely secondary to COVID-19, monitor Dehydration, IV fluids JOSE on CKD, IV fluids Type 2 diabetes mellitus, Lantus 20 units in the morning, moderate dose sliding scale Hypertension -Hold lisinopril -Continue metoprolol Attestations Medical Necessity Statement*: Patient requires hospitalization for dehydration, diarrhea, COVID-19 pneumonia Coding Level of Care Code Acute 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
[2022-07-10] VITALS (11 sets, daily range): BP systolic 110–139; BP diastolic 67–84; PULSE 65–83; RESP 16–18; TEMP 36.7–37; O2SAT 92–98
[2022-07-10] MEDS: dexamethasone 10 mg/mL INJ 6 MG IVP (00:50)
[2022-07-10] MEDS: sodium chloride 0.9% 1,000 ML 75 ML IV (00:50)
[2022-07-10] MEDS: doxycycline 100 MG in sodium chloride 0.9% (plus) 100 ML IV ×2 (00:51→12:17)
[2022-07-10] MEDS: enoxaparin 40 mg/0.4 mL Syringe SUBCUT (00:52)
[2022-07-10 06:59] LABS: Glucose Point of Care 206 mg/dL (70-110)
[2022-07-10 07:06] LABS: Basophils % 0.5 %; Hematocrit 38.6 % (37.0-47.0); Hemoglobin 12.2 g/dL (11.5-15.3); Lymphocytes # 1.7 10^3/uL (0.8-4.8); Lymphocytes % 39.2 %; Mean Corpuscular HGB Conc 31.6 g/dL (30.0-36.0); Mean Corpuscular Hemoglobin 30.9 pg (28.0-34.0); Mean Corpuscular Volume 97.7 fl (81-99); Mean Platelet Volume 10.2 fL (7.4-10.4); Monocytes # 0.4 10^3/uL (0.2-0.9); Monocytes % 8.5 %; Neutrophils # 2.25 10^3/uL (1.8-7.7); Neutrophils % 51.8 %; Nucleated Red Blood Cells % 0 %; Platelet Count 206 10^3/cmm (130-400); Red Blood Count 3.95 10^6/uL (4.1-5.3); Red Cell Distribution Width 14.2 % (12.1-15.1); White Blood Count 4.3 10^3/uL (4.0-10.0)
[2022-07-10 07:33] LABS: Anion Gap 14.5 (5-19); Blood Urea Nitrogen 40 mg/dL (8-23); Calcium 7.8 mg/dL (8.5-10.5); Carbon Dioxide 21 mmol/L (22-29); Chloride 110 mmol/L (98-107); Glomerular Filtration Rate 38.1 mL/min (90-130); Glucose 202 mg/dL (65-115); Osmolality Calculated 308 mOsm/kg (285-295); Potassium 4.5 mmol/L (3.5-5.1); Sodium 141 mmol/L (136-145); Thyroid Stimulating Hormone 0.73 uIU/mL (0.27-4.20)
[2022-07-10] MEDS: topiramate 25 mg Tablet 50 MG PO (08:50)
[2022-07-10] MEDS: fenofibrate 145 mg Tablet PO (08:50)
[2022-07-10] MEDS: metoprolol tartrate 50 mg Tablet 100 MG PO (08:50)
[2022-07-10] MEDS: insulin lispro 100 unit/1 mL SUBCUT ×2 (08:51→12:22)
[2022-07-10] MEDS: pantoprazole DR 40 mg Tablet PO (08:51)
[2022-07-10] MEDS: budesonide 0.5 mg/2 mL Neb 0.25 MG INHALATION (08:56)
[2022-07-10] MEDS: ipratropium-albuterol 3 mL Neb INHALATION (08:56)
[2022-07-10] MEDS: insulin glargine 100 units/1 mL 20 UNIT SUBCUT (10:46)
[2022-07-10 11:10] LABS: Glucose Point of Care 228 mg/dL (70-110)
--- NOTE | 2022-07-10 16:14 | P.DS_ITS ---
Discharge Providers Date of Admission: 07/09/22 20:52 Date of Discharge: July 10, 2022 Attending Provider at Admission: Kyle oSuza MD Attending Provider at Discharge: Elise Webber MD Primary Care Provider: MARTINE Pollock Diagnoses at Discharge Discharge Diagnosis (1) Acute kidney injury: Status: Resolved (2) Acute dehydration: Status: Resolved (3) CKD (chronic kidney disease) stage 2, GFR 60-89 ml/min: Status: Inactive (4) Pneumonia due to COVID-19 virus: Status: Acute Reason for Visit Reason for Visit: UTI, fever Brief History: 61 year old lady who presented to [facility] with c/o fever. cough, malaise, fatigue and diarrhea. Hospital Course Hospital Course She was found to have COVID 19 pneumonia. Lab abnormalities included transaminitis, JOSE likely as a result of dehydration from diarrhea from acute viral illness. CXR did not show signs of pneumoniatis. She remained on room air during course of admission. Her diarrhea is resolved by the morning. Cr improved to 1.4 from 2.2. She is eager to return home. Given her comorbidities of DM and COPD, unvaccinated status she is at high risk of progression to severe COVID 19. We will prescribe Paxlovid and short steroid course at discharge. Physical Exam Narrative: General: No acute distress, AO x3 HEENT: PERRLA, pupils bilaterally equal and reactive, pallors not present Chest: Normal vesicular breath sounds, no added sounds, equal good air entry bilaterally CVS: S1-S2 regular, no murmurs, no tachycardia, no gallops, no rubs Abdomen: Soft, nontender, no organomegaly, bowel sounds present Neuro: No focal deficits, no facial deformity, AO x3, power 5/5 in all limbs Discharge Data Studies Completed and Pending Completed Studies During Hospitalization Category Date Time Status XR chest 1V portable [id number] Stat Exams 07/09/22 15:01 Completed Pending at discharge Category Date Time Status Basic Metabolic Panel AM LABS Lab 07/11/22 04:00 Ordered Basic Metabolic Panel AM LABS Lab 07/12/22 04:00 Ordered Blood Culture Stat Lab 07/09/22 21:07 Results Complete Blood Count w/Auto AM LABS Lab 07/11/22 04:00 Ordered Complete Blood Count w/Auto AM LABS Lab 07/12/22 04:00 Ordered Magnesium AM LABS Lab 07/11/22 04:00 Ordered Magnesium AM LABS Lab 07/12/22 04:00 Ordered Sputum Culture and Gram Stain Stat Lab 07/09/22 20:56 Uncollected Radiology Impressions Chest X-Ray 07/09/22 15:01 IMPRESSION: Left lateral basilar infiltrate. Pneumonitis is difficult to exclude. Clinical correlation is recommended. Laboratory Results WBC 4.3 10^3/uL (4.0-10.0) 07/10/22 06:44 RBC 3.95 10^6/uL (4.1-5.3) L 07/10/22 06:44 Hgb 12.2 g/dL (11.5-15.3) 07/10/22 06:44 Hct 38.6 % (37.0-47.0) 07/10/22 06:44 MCV 97.7 fl (81-99) 07/10/22 06:44 MCH 30.9 pg (28.0-34.0) 07/10/22 06:44 MCHC 31.6 g/dL (30.0-36.0) 07/10/22 06:44 RDW 14.2 % (12.1-15.1) 07/10/22 06:44 Plt Count 206 10^3/cmm (130-400) 07/10/22 06:44 MPV 10.2 fL (7.4-10.4) 07/10/22 06:44 Neut % (Auto) 51.8 % 07/10/22 06:44 Lymph % (Auto) 39.2 % 07/10/22 06:44 [place] % (Auto) 8.5 % 07/10/22 06:44 Eos % (Auto) 0.0 % 07/10/22 06:44 Baso % (Auto) 0.5 % 07/10/22 06:44 Neut # (Auto) 2.25 10^3/uL (1.8-7.7) 07/10/22 06:44 Lymph # (Auto) 1.7 10^3/uL (0.8-4.8) 07/10/22 06:44 [place] # (Auto) 0.4 10^3/uL (0.2-0.9) 07/10/22 06:44 Eos # (Auto) 0.0 10^3/uL (0.0-0.8) 07/10/22 06:44 Baso # (Auto) 0.0 10^3/uL (0.0-0.1) 07/10/22 06:44 Nucleated RBC % (auto) 0 % 07/10/22 06:44 Nucleated RBCs # 0.0 /100WBC 07/10/22 06:44 Sodium 141 mmol/L (136-145) 07/10/22 06:44 Potassium 4.5 mmol/L (3.5-5.1) 07/10/22 06:44 Chloride 110 mmol/L (98-107) H 07/10/22 06:44 Carbon Dioxide 21 mmol/L (22-29) L 07/10/22 06:44 Anion Gap 14.5 (5-19) 07/10/22 06:44 BUN 40 mg/dL (8-23) H 07/10/22 06:44 Creatinine 1.4 mg/dL (0.5-0.9) H 07/10/22 06:44 GFR Calculation 38.1 mL/min (90-130) L 07/10/22 06:44 Glucose 202 mg/dL (65-115) H 07/10/22 06:44 POC Glucose 228 mg/dL (70-110) H 07/10/22 11:07 Calculated Osmolality 308 mOsm/kg (285-295) H 07/10/22 06:44 Lactic Acid 1.1 mmol/L (0.5-2.2) 07/09/22 17:05 Lactate Cancelled 07/09/22 16:02 Calcium 7.8 mg/dL (8.5-10.5) L 07/10/22 06:44 Magnesium 2.0 mg/dL (1.7-2.3) 07/10/22 06:44 Total Bilirubin 0.2 mg/dL (0.15-1.2) 07/09/22 17:05 AST 139 U/L (0-32) H 07/09/22 17:05 ALT 99 U/L (0-33) H 07/09/22 17:05 Alkaline Phosphatase 31 U/L (35-105) L 07/09/22 17:05 C-Reactive Protein 4.1 mg/L (0.0-4.9) 07/09/22 17:05 Total Protein 6.8 g/dL (6.6-8.7) 07/09/22 17:05 Albumin 3.7 g/dL (3.5-5.2) 07/09/22 17:05 Globulin 3.1 g/dL (1.3-4.6) 07/09/22 17:05 Lipase 71 U/L (13-60) H 07/09/22 17:05 Procalcitonin 0.15 ng/mL (0-0.5) 07/09/22 17:05 TSH 0.73 uIU/mL (0.27-4.20) 07/10/22 06:44 Urine Color Yellow (Yellow) 07/09/22 18:18 Urine Appearance Sl hazy (CLEAR) 07/09/22 18:18 Urine pH 5 (5-7) 07/09/22 18:18 Ur Specific [place] 1.015 (1.005-1.030) 07/09/22 18:18 Urine Protein Neg (Negative) 07/09/22 18:18 Urine Glucose (UA) Norm (Normal) 07/09/22 18:18 Urine Ketones 1+ (Negative) H 07/09/22 18:18 Urine Blood Neg (Negative) 07/09/22 18:18 Urine Nitrate Negative (Negative) 07/09/22 18:18 Urine Bilirubin Neg (Negative) 07/09/22 18:18 Urine Urobilinogen Norm mg/dL (Negative) 07/09/22 18:18 Ur Leukocyte Esterase Negative (Negative) 07/09/22 18:18 Urine RBC 0-4 /hpf (0-2) H 07/09/22 18:18 Urine WBC 0-4 /hpf (0-5) H 07/09/22 18:18 Ur Squamous Epith Cells 0-4 /hpf (0-5) H 07/09/22 18:18 Amorphous Sediment Not Reportable 07/09/22 18:18 Urine Bacteria 2+ /hpf (NONE) H 07/09/22 18:18 Hyaline Casts 0-4 /lpf H 07/09/22 18:18 Coronavirus 229E (PCR) Not detected (NOT DETECT) 07/09/22 16:05 SARS-CoV-2 (PCR) Detected (NOT DETECT) A 07/09/22 16:05 Vitals Last Vital Signs Temp 98.1 F 07/10/22 12:00 Pulse 65 07/10/22 12:00 Resp 16 07/10/22 12:00 BP 110/72 07/10/22 12:00 Pulse Ox 92 07/10/22 12:00 O2 Del Method 07/10/22 12:00 Discharge Plan Discharge Patient Disposition: Home Condition: Stable Prescriptions: New Paxlovid (EUA) 150 mg x 2- 100 mg tablet See Rx Instructions .ROUTE .COMPLEX Qty: 30 0RF Rx Instructions: take TWO 150 mg tablets of nirmatrelvir with ONE 100 mg tablet of ritonavir twice daily for 5 days prednisone 10 mg tablets,dose pack See Rx Instructions .ROUTE .COMPLEX Qty: 21 0RF Rx Instructions: prednisone 5 mg: take 8 tablets (40 mg) on Day 1; 7 tablets (35 mg) on Day 2; then decrease by 1 tablet every day until finished doxycycline hyclate 100 mg capsule 100 mg PO BID 5 Days Qty: 10 0RF Continued nitroglycerin 0.4 mg tablet, sublingual 0.4 mg sublingual Q5MIN PRN (Reason: Chest Pain) (DME) nebulizer and compressor Device See Rx Instructions .ROUTE .MEDSUPPLY Qty: 1 Rx Instructions: As directed (DME) nebulizer and compressor [Portable Nebulizer System] Device See Rx Instructions .ROUTE .MEDSUPPLY Qty: 1 0RF Rx Instructions: As directed (DME) insulin syringe-needle U-100 1 mL 31 gauge x 5/16 syringe See Rx Instructions .ROUTE .MEDSUPPLY Qty: 100 5RF Rx Instructions: 5 times day (DME) blood-glucose meter [Easy-Touch Blood Glucose Meter] Misc See Rx Instructions .Route Qty: 1 0RF Rx Instructions: As directed (DME) Easy Touch Angel Link Test Strip Strip See Rx Instructions .Route Qty: 100 5RF Rx Instructions: 3 time day (DME) lancing device [Easy Touch Lancing Device] Misc See Rx Instructions .Route Qty: 1 0RF Rx Instructions: As directed (DME) Easy Touch Lancets 32 gauge misc See Rx Instructions .Route Qty: 100 5RF Rx Instructions: three times day albuterol sulfate 90 mcg/actuation HFA aerosol inhaler 2 puff INHALATION Q6H PRN (Reason: shortness of breath or wheezing) Qty: 18 2RF albuterol sulfate 2.5 mg /3 mL (0.083 %) solution for nebulization 2.5 mg inhalation Q4H PRN (Reason: shortness of breath or wheezing) Qty: 180 2RF fenofibrate nanocrystallized 145 mg tablet 145 mg PO DAILY Qty: 90 0RF furosemide 20 mg tablet 20 mg PO BID PRN (Reason: edema) Qty: 180 0RF insulin glargine 100 unit/mL solution 40 unit SUBCUT DAILY 30 Days Qty: 30 2RF insulin lispro [Humalog U-100 Insulin] 100 unit/mL solution 12 - 21 unit SUBCUT TID 30 Days Qty: 45 2RF lisinopril 20 mg tablet 20 mg PO BID Qty: 180 0RF metoprolol tartrate 100 mg tablet 100 mg PO BID Qty: 180 0RF topiramate [Topamax] 50 mg tablet 50 mg PO BID Qty: 180 0RF trazodone 300 mg tablet 300 mg PO BEDTIME Discharge Orders: Discharge Order (Routine); Ordered 07/10/22 Ordered By: Elise Webber Referrals: Campbell Rao FNP-C [Primary Care Provider] - 07/24/22 1:20 pm Discharge Diet: Usual diet and Diabetic Discharge Activity: Resume usual activity Patient Instructions: Doxycycline (By mouth), Prednisone (By mouth), Nirmatrelvir/Ritonavir (By mouth) (Paxlovid), COVID-19 (Coronavirus Disease 2019) (GEN), Opioid Safety, Pneumonia Stoplight, Pneumonia - Viral Activity Restrictions/Additional Instructions: Since you were hospitalized due to COVID-19, or you have a weakened immune system, you need to isolate through day 10. * Wear a high-quality mask https://www.cdc.gov/coronavirus/2019-ncov/fwehojr-nxhejsj-tisn/masks.html ?if you must be around others at home and in public. * Do not go places where you are unable to wear a mask. For travel guidance, see CDC?s?Travel webpage https://www.cdc.gov/coronavirus/2019-ncov/larry juarez/index.html#nwp-y-qcpiav . * Do not travel https://www.cdc.gov/coronavirus/2019-ncov/travelers/index.html#kow-p-hdpgoe . * Stay home and separate from others as much as possible. * Use a separate bathroom, if possible. * Take steps to?improve ventilation https://www.cdc.gov/coronavirus/2019-ncov/swejkkc-oobeihm-oazn/prevention.html #ventilation ?at home, if possible. * Don?t share personal household items, like cups, towels, and utensils. * Monitor your?symptoms https://www.cdc.gov/coronavirus/2019-ncov/symptoms-testing/symptoms.html . If you have an?emergency warning sign https://www.cdc.gov/coronavirus/2019-ncov/symptoms-testing/symptoms.html#Emerg ency ?(like trouble breathing), seek emergency medical care immediately. * Learn more about?what to do if you have COVID-19 https://www.cdc.gov/coronavirus/2019-ncov/jw-aqt-aja-sick/ypytg-aiwg-tped.html . Discharge Attestations Time Spent in Discharge Care*: greater than 30 min Quality Metrics Clinical Quality Measures [ No reported AMI, CVA or VTE this stay] Coding Level of Care Code Acute g FW DC note Diagnoses Acute kidney injury N17.9 Acute dehydration E86.0 CKD (chronic kidney disease) stage 2, GFR 60-89 ml/min N18.2 Pneumonia due to COVID-19 virus U07.1; J12.82
--- NOTE | 2022-07-10 16:30 | PC.NURSE ---
IV removed intact patient tolerated well. Patient is A&Ox3. Respirations even and non-labored on room air. Reviewed discharges with patient at this time. Patient verbalized understanding of discharge instructions, new medication and and follow up appointments. Patient wheel chaired to private car.
== END 2022-07-10 16:30 | disposition home or self-care (01) ==
LOC: ER 20:36 → MEDSURG 07-10 05:04 → ER IP 07-10 12:13
PROVIDERS: Emergency Medicine; Physician Assistant; Admitting Provider Family Medicine; Emergency Provider Emergency Medicine; PCP Nurse Practitioner; Visit Provider Student in an Organized Health Care Education/Training Program
DX: U07.1 COVID-19 (principal); J12.82 Pneumonia due to coronavirus disease 2019; N17.9 Acute kidney failure, unspecified; E86.0 Dehydration; I13.10 Hypertensive heart and chronic kidney disease without heart failure, with stage 1 through stage 4 chronic kidney disease, or unspecified chronic kidney disease; E11.22 Type 2 diabetes mellitus with diabetic chronic kidney disease; N18.2 Chronic kidney disease, stage 2 (mild); E11.40 Type 2 diabetes mellitus with diabetic neuropathy, unspecified; R74.01 Elevation of levels of liver transaminase levels; E78.5 Hyperlipidemia, unspecified; J43.9 Emphysema, unspecified; I25.10 Atherosclerotic heart disease of native coronary artery without angina pectoris; I25.2 Old myocardial infarction; Z79.4 Long term (current) use of insulin; Z87.891 Personal history of nicotine dependence; Z95.5 Presence of coronary angioplasty implant and graft; Z28.04 Immunization not carried out because of patient allergy to vaccine or component; Z88.0 Allergy status to penicillin; Z88.1 Allergy status to other antibiotic agents; Z66 Do not resuscitate
CPT/HCPCS: 36415; 36416; 71045; 80048; 80053; 81001; 82962; 83605; 83690; 83735; 84145; 84443; 85025; 86140; 87040; 87635; 94640; 94664; 96361; 96372; 96374; 99285; G0378; J1100; J1650; J1815; J3490; J7030; J7626

== ENCOUNTER → 2022-07-24 14:07 | Outpatient (BNVA) | payer MEDICARE, SELFPAY | PROVIDERS: PCP Nurse Practitioner; Visit Provider Nurse Practitioner | DX: E11.49 Type 2 diabetes mellitus with other diabetic neurological complication (principal); J12.82 Pneumonia due to coronavirus disease 2019; U07.1 COVID-19; Z79.4 Long term (current) use of insulin | CPT/HCPCS: 71046; 80053; 85025 ==

== ENCOUNTER → 2022-08-29 08:45 | Outpatient (BNVA) | payer MEDICARE, SELFPAY | PROVIDERS: PCP Nurse Practitioner; Visit Provider Nurse Practitioner | DX: E11.9 Type 2 diabetes mellitus without complications (principal); E55.9 Vitamin D deficiency, unspecified; I10 Essential (primary) hypertension; M79.7 Fibromyalgia | CPT/HCPCS: 80053; 80061; 81000; 82306; 83036; 84443 ==

== ENCOUNTER → 2022-11-23 08:42 | Outpatient (BNVA) | payer MEDICARE, SELFPAY | PROVIDERS: PCP Nurse Practitioner; Visit Provider Nurse Practitioner | DX: E11.49 Type 2 diabetes mellitus with other diabetic neurological complication (principal); Z79.4 Long term (current) use of insulin; E55.9 Vitamin D deficiency, unspecified | CPT/HCPCS: 80053; 80061; 81000; 82607; 83036; 84443; 85025 ==

== ENCOUNTER → 2023-02-13 08:24 | Outpatient (BNVA) | payer MEDICARE, SELFPAY | PROVIDERS: PCP Nurse Practitioner; Visit Provider Nurse Practitioner | DX: M79.7 Fibromyalgia (principal); E55.9 Vitamin D deficiency, unspecified; E11.49 Type 2 diabetes mellitus with other diabetic neurological complication; Z79.4 Long term (current) use of insulin; I25.10 Atherosclerotic heart disease of native coronary artery without angina pectoris | CPT/HCPCS: 80053; 80061; 81000; 82306; 83036; 84443 ==

== ENCOUNTER → 2023-03-14 11:29 | Outpatient (BNVA) | payer MEDICARE, SELFPAY | PROVIDERS: PCP Nurse Practitioner; Visit Provider Nurse Practitioner | DX: M54.9 Dorsalgia, unspecified (principal); M25.551 Pain in right hip; M25.552 Pain in left hip; Z98.1 Arthrodesis status; M16.0 Bilateral primary osteoarthritis of hip | CPT/HCPCS: 72100; 73522 ==

== ENCOUNTER → 2023-05-07 09:05 | Outpatient (BNVA) | payer MEDICARE, SELFPAY | PROVIDERS: PCP Nurse Practitioner; Visit Provider Nurse Practitioner | DX: E11.49 Type 2 diabetes mellitus with other diabetic neurological complication (principal); Z79.4 Long term (current) use of insulin | CPT/HCPCS: 80053; 83036; 85025 ==

== ENCOUNTER 2023-05-18 07:52 | Outpatient (CLI) | payer MEDICARE, SELFPAY ==
--- NOTE | 2023-05-18 07:45 | CT_ITS ---
WS: [id number] LDCT LUNG CANCER SCREENING HISTORY: Z87.891 - Personal history of nicotine dependence TECHNIQUE: Axial imaging performed from the apices to 1 cm below the costophrenic angles. Coronal and sagittal reformats are submitted with axial MIP series. All CT scans at [facility] use at least one of these dose optimization techniques: automated exposure control; mA and/or kV adjustment per patient size (includes targeted exams where dose is matched to clinical indication); or iterativ e reconstruction. DLP: 106.28 mGy.cm DIvol: Mean CTDIvol: 2.60 (mGy) COMPARISON: None available. Diagnostic quality: Satisfactory Lungs: No pulmonary mass or nodule. No pneumonia. No endobronchial lesions. Heart: Normal size heart with no pericardial effusion.. Moderate coronary artery calcification. Other findings: Mild atherosclerosis aorta. Small hiatal hernia. Hepatic granulomata. No adrenal mass . CT/CT lung screening [id number] IMPRESSION: LUNG-RADS: 1-Negative FOLLOW UP: 12 Month: Continue annual screening with LDCT OTHER FINDINGS (S MODIFIER): None.
== END 2023-05-18 07:53 | disposition home or self-care (01) ==
PROVIDERS: PCP Nurse Practitioner; Visit Provider Nurse Practitioner
DX: Z12.2 Encounter for screening for malignant neoplasm of respiratory organs (principal); Z87.891 Personal history of nicotine dependence
CPT/HCPCS: 71271

== ENCOUNTER → 2023-07-31 09:02 | Outpatient (BNVA) | payer MEDICARE, SELFPAY | PROVIDERS: PCP Nurse Practitioner; Visit Provider Nurse Practitioner | DX: E11.49 Type 2 diabetes mellitus with other diabetic neurological complication (principal); Z79.4 Long term (current) use of insulin | CPT/HCPCS: 80053; 80061; 81000; 82043; 83036; 84443 ==

== ENCOUNTER → 2023-10-22 08:03 | Outpatient (BNVA) | payer MEDICARE, SELFPAY | PROVIDERS: PCP Nurse Practitioner; Visit Provider Nurse Practitioner | DX: E11.49 Type 2 diabetes mellitus with other diabetic neurological complication (principal); Z79.4 Long term (current) use of insulin; I25.10 Atherosclerotic heart disease of native coronary artery without angina pectoris | CPT/HCPCS: 80053; 80061; 83036; 84443 ==

== ENCOUNTER → 2023-10-24 15:04 | Outpatient (BNVA) | payer MEDICARE, SELFPAY | PROVIDERS: PCP Nurse Practitioner; Visit Provider Nurse Practitioner | DX: E11.49 Type 2 diabetes mellitus with other diabetic neurological complication (principal); Z79.4 Long term (current) use of insulin; J43.8 Other emphysema; E78.5 Hyperlipidemia, unspecified; I10 Essential (primary) hypertension; E11.40 Type 2 diabetes mellitus with diabetic neuropathy, unspecified; G47.00 Insomnia, unspecified; R21 Rash and other nonspecific skin eruption | CPT/HCPCS: 86003 ==

== ENCOUNTER → 2023-12-24 16:51 | Outpatient (BNVA) | payer MEDICARE, SELFPAY | PROVIDERS: PCP Nurse Practitioner; Visit Provider Nurse Practitioner Family | DX: H92.09 Otalgia, unspecified ear (principal); J01.10 Acute frontal sinusitis, unspecified | CPT/HCPCS: 87071; 87880 ==

== ENCOUNTER → 2024-01-30 11:12 | Outpatient (BNVA) | payer MEDICARE, SELFPAY | PROVIDERS: PCP Nurse Practitioner; Visit Provider Nurse Practitioner | DX: E11.9 Type 2 diabetes mellitus without complications (principal); E11.49 Type 2 diabetes mellitus with other diabetic neurological complication; Z79.4 Long term (current) use of insulin; J43.8 Other emphysema; E78.5 Hyperlipidemia, unspecified; I10 Essential (primary) hypertension; E11.40 Type 2 diabetes mellitus with diabetic neuropathy, unspecified; G47.00 Insomnia, unspecified; E11.42 Type 2 diabetes mellitus with diabetic polyneuropathy; Z87.891 Personal history of nicotine dependence | CPT/HCPCS: 71046; 80053; 80061; 81000; 83036; 85025 ==

== ENCOUNTER → 2024-04-28 08:19 | Outpatient (BNVA) | payer MEDICARE, SELFPAY | PROVIDERS: PCP Nurse Practitioner; Visit Provider Nurse Practitioner | DX: M79.7 Fibromyalgia (principal); E11.42 Type 2 diabetes mellitus with diabetic polyneuropathy; Z79.4 Long term (current) use of insulin; I25.10 Atherosclerotic heart disease of native coronary artery without angina pectoris | CPT/HCPCS: 80053; 80061; 83036; 84443 ==

== ENCOUNTER → 2024-06-16 14:22 | Outpatient (BNVA) | payer MEDICARE, SELFPAY | PROVIDERS: PCP Nurse Practitioner; Visit Provider Nurse Practitioner | DX: J30.89 Other allergic rhinitis (principal); Z91.018 Allergy to other foods; K21.9 Gastro-esophageal reflux disease without esophagitis | CPT/HCPCS: 86003; 86008 ==

== ENCOUNTER 2024-06-18 11:16 | Outpatient (CLI) | payer MEDICARE, SELFPAY ==
--- NOTE | 2024-06-18 11:27 | XR_ITS ---
WS: [id number] XR thoracic spine 3V* [id number] REASON FOR EXAM: R20.2 - Paresthesia of skin FINDINGS: No significant scoliosis. Mild dorsal kyphosis with mild anterior wedging of the T5 vertebrae. Mild changes of degenerative spondylosis in the upper thoracic spine with mild disc space narrowing a nd mild sclerosis of the endplates with mild osteophytosis. XR/XR thoracic spine 3V* [id number] IMPRESSION: Mild dorsal kyphosis as above. Mild degenerative spondylosis in the upper thoracic spine as above.
== END 2024-06-18 11:17 | disposition home or self-care (01) ==
LOC: RAD 11:20
PROVIDERS: PCP Nurse Practitioner; Visit Provider Nurse Practitioner
DX: R20.2 Paresthesia of skin (principal)
CPT/HCPCS: 72072

== ENCOUNTER → 2024-07-21 09:03 | Outpatient (BNVA) | payer MEDICARE, SELFPAY | PROVIDERS: PCP Nurse Practitioner; Visit Provider Nurse Practitioner | DX: E11.9 Type 2 diabetes mellitus without complications (principal); K21.9 Gastro-esophageal reflux disease without esophagitis | CPT/HCPCS: 80053; 81000; 82785; 83036; 86001; 86003; 87086 ==

== ENCOUNTER → 2024-09-21 11:48 | Outpatient (BNVA) | payer MEDICARE, SELFPAY | PROVIDERS: PCP Nurse Practitioner; Visit Provider Emergency Medicine | DX: M89.8X6 Other specified disorders of bone, lower leg (principal); M25.572 Pain in left ankle and joints of left foot | CPT/HCPCS: 73600 ==

== ENCOUNTER → 2024-10-06 09:08 | Outpatient (BNVA) | payer MEDICARE, SELFPAY | PROVIDERS: PCP Nurse Practitioner; Visit Provider Nurse Practitioner | DX: E11.9 Type 2 diabetes mellitus without complications (principal); E55.9 Vitamin D deficiency, unspecified; N39.0 Urinary tract infection, site not specified | CPT/HCPCS: 80053; 80061; 81000; 82306; 83036; 85025; 87086 ==

== ENCOUNTER 2024-10-15 10:04 | Emergency (ER) | payer MEDICARE, SELFPAY ==
[2024-10-15 10:18] VITALS: BP 144/78; PULSE 70; RESP 16; TEMP 36.7; O2SAT 96; BMI 37.4
--- NOTE | 2024-10-15 10:31 | ED_ITS ---
HPI - Female Genitourinary 2 General: Chief complaint: Urogenital-Female Stated complaint: uti, buring, cold, headache Time Seen by Provider: 10/15/24 10:25 Source: patient Mode of arrival: ambulatory Limitations: no limitations History of Present Illness: 63-year-old female states been having bu rning urination over the last week states she is recently diagnosed UTI by her PCP was prescribed Levaquin but states she is allergic to it so has not taken it she is continue to have burning urination she been having some lower abdominal pain 2 over her bladder denies any vomiting or diarrhea. Associated symptoms: Deny abdominal pain, headache(s) or nausea Related Data Home Medications Medication Instructions Recorded Confirmed acetaminophen 325 mg tablet 325 mg PO QID PRN Pain 10/15/24 10/15/24 (Tylenol) cholecalciferol (vitamin D3) 50 50 mcg PO DAILY 10/15/24 10/15/24 mcg (2,000 unit) tablet (Vitamin D3) cinnamon bark-chromium picolinate 1 cap PO DAILY 10/15/24 10/15/24 500 mg-100 mcg capsule [id number] 1 tab PO DAILY 10/15/24 10/15/24 fumarate 18 mg-folic acid 400 mcg tablet (One-A-Day Women's Complete) Previous Rx's Medication Instructions Recorded nebulizer and compressor (Portable #1 ea 08/12/21 Nebulizer System) blood-glucose meter (Boulder IonicsTouch #1 ea 10/31/22 Verio Flex Start kit) lancets 33 gauge #100 ea 10/24/23 albuterol sulfate 2.5 mg/3 mL 2.5 mg (3 mL) inhalation Q4H PRN 04/30/24 (0.083 %) solution for nebulization shortness of breath or wheezing #180 mL insulin syringe-needle U-100 1 mL #100 ea 07/23/24 31 gauge x 5/16 Lantus U-100 Insulin 100 unit/mL See Rx Instructions SUBCUT DAILY 10/08/24 subcutaneous solution (insulin #40 mL glargine) acarbose 100 mg tablet 100 mg PO TID #270 tabs 10/08/24 albuterol sulfate 90 mcg/actuation 2 puff inhalation Q6H PRN 10/08/24 aerosol inhaler shortness of breath or wheezing #18 grams blood sugar diagnostic (OneTouch #100 ea 10/08/24 Verio test strips) fenofibrate nanocrystallized 48 mg 48 mg PO DAILY #90 tabs 10/08/24 tablet furosemide 20 mg tablet 20 mg PO BID PRN edema #180 tabs 10/08/24 insulin lispro 100 unit/mL 12 - 21 unit (0.12 - 0.21 mL) 10/08/24 subcutaneous solution (Humalog SUBCUT TID 30 days #45 mL U-100 Insulin) lisinopril 20 mg tablet 20 mg PO BID #180 tabs 10/08/24 metoprolol tartrate 100 mg tablet 100 mg PO BID #180 tabs 10/08/24 trazodone 150 mg tablet 300 mg (2 x 150 mg) PO BEDTIME 10/08/24 #180 tabs levofloxacin 250 mg tablet 250 mg PO DAILY #3 tabs 10/14/24 cephalexin 500 mg capsule 500 mg PO TID 7 days #21 caps 10/15/24 Allergies Allergy/AdvReac Type Severity Reaction Status Date / Time aspirin Allergy Unknown Unknown Verified 10/08/24 10:05 bisacodyl Allergy Unknown ALGY-Hives Verified 10/08/24 10:05 [From Dulcolax (bisacodyl)] dextromethorphan Allergy Unknown ALGY-Anaphy Verified 10/08/24 10:05 [From NyQuil] laxis doxylamine [From NyQuil] Allergy Unknown ALGY-Anaphy Verified 10/08/24 10:05 laxis epinephrine Allergy Unknown Unknown Verified 10/08/24 10:05 [From Epi E-Z Pen] insulin detemir Allergy Unknown ALGY-Difficulty Verified 10/08/24 10:05 [From Levemir U-100 Insulin] Breathing nitrofurantoin Allergy Unknown ALGY-Hives Verified 10/08/24 10:05 [From Macrobid] Penicillins Allergy Unknown ALGY-Anaphy Verified 10/08/24 10:05 laxis pseudoephedrine Allergy Unknown ALGY-Hives Verified 10/08/24 10:05 [From Sudafed] acetaminophen [From Tylenol] Allergy ALGY-Hives Verified 10/08/24 10:05 guaifenesin [From Mucinex DM] Allergy Nasal Verified 10/08/24 10:05 Bleed levofloxacin [From Levaquin] AdvReac Mild Foot Verified 10/14/24 18:54 shaking Review of Systems 2 Const: Denies: fever(s), chills, body aches or change in appetite ENMT: Denies: throat pain or dental pain Card: Denies: chest pain Resp: Denies: dyspnea GI: Denies: abdominal pain, nausea, vomiting or diarrhea : Reports: dysuria Musc: Denies: neck pain or back pain Skin/Breast: Denies: rash Neuro: Denies: headache(s) PFSH ED 2 PFSH: Medical History CKD (chronic kidney disease) stage 2, GFR 60-89 ml/min Insomnia disorder Numbness and tingling in right hand Lumbar post-laminectomy syndrome Thoracic compression fracture Left nephrolithiasis Tobacco abuse History of myocardial infarction CAD (coronary artery disease) Generalized neuropathy History of Helicobacter pylori infection History of Royal spotted fever History of Lyme disease Vitamin D deficiency Fibromyalgia COPD (chronic obstructive pulmonary disease) with emphysema Benign essential hypertension with target blood pressure below 140/90 Hyperlipidemia, unspecified Diabetes mellitus with neurologic complication, with long-term current use of insulin History of stomach cancer Surgical History History of colonoscopy 2011 History of back surgery 10/16/2017 Dr. Jan Cottrell L5-S1 reexploration/fusion/fixation History of colon surgery 1979 Hx of heart artery stent History of hysterectomy 1983 History of lumpectomy of left breast 1998 Family History Mother Lung disease Lung Cancer Heart disease Grandmother Diabetes Family/Other Diabetes Family/Other Heart disease Lung disease Social History Smoking and tobacco/nicotine status: former use of tobacco/nicotine Second hand smoke exposure: No Alcohol intake: never Substance/Drug Use: never Adopted: No Caregiver/support person: No Lives independently: Yes Household members: spouse Housing: House Marital status: service: No Current occupational status: disabled Do you think of yourself as: Straight/Heterosexual Current gender identity: Female Physical Exam 2 Const: COMMON NORMALS: no acute distress, patient oriented x3 and healthy appearing HENMT: COMMON NORMALS: normocephalic and atraumatic HEAD & SCALP: n ormocephalic and atraumatic Neck/C-Spine: COMMON NORMALS: full ROM and supple Chest: COMMONS NORMALS: normal inspection of the chest Resp: COMMON NORMALS: normal respiratory effort Cardio: COMMON NORMALS: regular rate, regular rhythm and No murmurs present (Cardio) RATE: regular rate RHYTHM: regular rhythm GI: COMMON NORMALS: Normal to inspection, nondistended, normoactive bowel sounds present, Soft to palpation, non-tender and no masses PALPATION: Yes Soft to palpation Extremity: COMMON NORMALS: normal to inspection and full ROM Neuro: COMMON NORMALS: patient oriented x3, moves all extremities and no focal motor deficits Psych: COMMON NORMALS: mental status grossly normal, Normal thought process present and cooperative THOUGHT PROCESS: Normal thought process present Skin: COMMON NORMALS: no rashes or lesions noted and no wounds GENERAL SKIN EXAM: no rashes or lesions noted Course 2 Vital Signs: Vital signs: Vital Signs Temperature 98.0 F 10/15/24 10:18 Pulse Rate 67 10/15/24 11:05 Respiratory Rate 16 10/15/24 10:18 Blood Pressure 163/84 10/15/24 11:05 Pulse Oximetry 96 10/15/24 11:05 Oxygen Delivery Me thod Room Air 10/15/24 11:05 MDM - Female Medical Decision Making Patient presents here with dysuria she did have a recent UTI and been on antibiotics I did look through the sensitivities is sensitive to ceftriaxone did give her dose here we will prescribe her Keflex for home blood work here is normal abdominal exam is benign she is return if worsening she understands agrees to plan Medical Records I reviewed the patient's medical records. Lab Data I reviewed the patient's lab results. 10/15/24 10:37 10/15/24 10:37 Laboratory Results WBC 10.03 10^3/uL (3.29-11.43) 10/15/24 10:37 RBC 4.78 10^6/uL (3.85-5.65) 10/15/24 10:37 Hgb 14.60 g/dL (11.27-16.99) 10/15/24 10:37 Hct 45.1 % (36-47) 10/15/24 10:37 MCV 94.4 fl (85-98) 10/15/24 10:37 MCH 30.5 pg (27-33) 10/15/24 10:37 MCHC 32.4 g/dL (30-55) 10/15/24 10:37 RDW 13.4 % (12.1-15.1) 10/15/24 10:37 Plt Count 289 10^3/cmm (157-399) 10/15/24 10:37 MPV 9.2 fL (7.4-10.4) 10/15/24 10:37 Neut % (Auto) 53.7 % 10/15/24 10:37 Lymph % (Auto) 32.8 % 10/15/24 10:37 Larue % (Auto) 9.9 % 10/15/24 10:37 Eos % (Auto) 3.0 % 10/15/24 10:37 Baso % (Auto) 0.5 % 10/15/24 10:37 Neut # (Auto) 5.39 10^3/uL (1.8-7.7) 10/15/24 10:37 Lymph # (Auto) 3.3 10^3/uL (0.8-4.8) 10/15/24 10:37 Larue # (Auto) 1.0 10^3/uL (0.2-0.9) H 10/15/24 10:37 Eos # (Auto) 0.3 10^3/uL (0.0-0.8) 10/15/24 10:37 Baso # (Auto) 0.1 10^3/uL (0.0-0.1) 10/15/24 10:37 Nucleated RBC % (auto) 0 % 10/15/24 10:37 Nucleated RBCs # 0.0 /100WBC 10/15/24 10:37 Sodium 140 mmol/L (136-145) 10/15/24 10:37 Potassium 3.8 mmol/L (3.5-5.1) 10/15/24 10:37 Chloride 104 mmol/L (98-107) 10/15/24 10:37 Carbon Dioxide 25 mmol/L (22-29) 10/15/24 10:37 Anion Gap 14.8 (5-19) 10/15/24 10:37 BUN 21 mg/dL (8-23) 10/15/24 10:37 Creatinine 0.8 mg/dL (0.5-0.9) 10/15/24 10:37 GFR Calculation 72.2 mL/min (90-130) L 10/15/24 10:37 Glucose 90 mg/dL (65-115) 10/15/24 10:37 Calculated Osmolality 293 mOsm/kg (285-295) 10/15/24 10:37 Calcium 9.2 mg/dL (8.5-10.5) 10/15/24 10:37 Total Bilirubin 0.2 mg/dL (0.15-1.2) 10/15/24 10:37 AST 15 U/L (0-32) 10/15/24 10:37 ALT 13 U/L (0-33) 10/15/24 10:37 Alkaline Phosphatase 41 U/L (35-105) 10/15/24 10:37 Total Protein 7.8 g/dL (6.6-8.7) 10/15/24 10:37 Albumin 4.0 g/dL (3.5-5.2) 10/15/24 10:37 Globulin 3.8 g/dL (1.3-4.6) 10/15/24 10:37 Urine Color Yellow (Yellow) 10/15/24 10:22 Urine Appearance Clear (CLEAR) 10/15/24 10:22 Urine pH 6.0 (5-7) 10/15/24 10:22 Ur Specific [place] 1.004 (1.005-1.030) L 10/15/24 10:22 Urine Protein Negative (Negative) 10/15/24 10:22 Urine Glucose (UA) Negative (Normal) 10/15/24 10:22 Urine Ketones Negative (Negative) 10/15/24 10:22 Urine Blood Negative (Negative) 10/15/24 10:22 Urine Nitrate Negative (Negative) 10/15/24 10:22 Urine Bilirubin Negative (Negative) 10/15/24 10:22 Urine Urobilinogen 0.2 mg/dL (Negative) 10/15/24 10:22 Ur Leukocyte Esterase Negative (Negative) 10/15/24 10:22 Urine RBC 0-2 /hpf (0-2) 10/15/24 10:22 Urine WBC 0-5 /hpf (0-5) 10/15/24 10:22 Ur Squamous Epith Cells 0-5 /hpf (0-5) 10/15/24 10:22 Amorphous Sediment Not Reportable 10/15/24 10:22 Urine Bacteria 1+ /hpf (NONE) H 10/15/24 10:22 Hyaline Casts 0-4 /lpf H 10/15/24 10:22 No radiology studies performed this visit Discharge Plan Discharge Patient Disposition: Home Clinical Impression: Urinary tract infection Condition: Stable Prescriptions: New cephalexin 500 mg capsule 500 mg PO TID 7 Days Qty: 21 0RF No Action (DME) nebulizer and compressor [Portable Nebulizer System] Device See Rx Instructions .ROUTE .MEDSUPPLY Qty: 1 0RF Rx Instructions: As directed (DME) blood-glucose meter [Boulder IonicsTouch Verio Flex Start] Kit See Rx Instructions .Route Qty: 1 0RF Rx Instructions: use three times day albuterol sulfate 2.5 mg /3 mL (0.083 %) solution for nebulization 2.5 mg inhalation Q4H PRN (Reason: shortness of breath or wheezing) Qty: 180 2RF (DME) insulin syringe-needle U-100 1 mL 31 gauge x 5/16 syringe See Rx Instructions .ROUTE .MEDSUPPLY Qty: 100 5RF Rx Instructions: 5 times day acarbose 100 mg tablet 100 mg PO TID Qty: 270 1RF Rx Instructions: take before food albuterol sulfate 90 mcg/actuation HFA aerosol inhaler 2 puff INHALATION Q6H PRN (Reason: shortness of breath or wheezing) Qty: 18 2RF (DME) OneTouch Verio test strips Strip See Rx Instructions .Route Qty: 100 5RF Rx Instructions: use 3 times day fenofibrate nanocrystallized 48 mg tablet 48 mg PO DAILY Qty: 90 1RF furosemide 20 mg tablet 20 mg PO BID PRN (Reason: edema) Qty: 180 1RF insulin lispro [Humalog U-100 Insulin] 100 unit/mL solution 12 - 21 unit SUBCUT TID 30 Days Qty: 45 2RF insulin glargine [Lantus U-100 Insulin] 100 unit/mL solution See Rx Instructions SUBCUT DAILY Qty: 40 1RF Rx Instructions: up 40 subcutaneously daily; lisinopril 20 mg tablet 20 mg PO BID Qty: 180 1RF metoprolol tartrate 100 mg tablet 100 mg PO BID Qty: 180 1RF trazodone 150 mg tablet 300 mg PO BEDTIME Qty: 180 1RF (DME) lancets 33 gauge misc See Rx Instructions .Route Qty: 100 5RF Rx Instructions: use 3 times levofloxacin 250 mg tablet 250 mg PO DAILY Qty: 3 0RF acetaminophen [Tylenol] 325 mg Tablet 325 mg PO QID PRN (Reason: Pain) cinnamon bark-chromium picolin 500-100 mg-mcg Capsule 1 cap PO DAILY cholecalciferol (vitamin D3) [Vitamin D3] 50 mcg (2,000 unit) Tablet 50 mcg PO DAILY One-A-Day Women's Complete 18 mg iron- 400 mcg Tablet 1 tab PO DAILY Discharge Orders: Discharge ED (Routine); Ordered 10/15/24 Ordered By: Chuck Delarosa Referrals: Campbell Rao FNP-C [Primary Care Provider] - Discharge Diet: Advance as tolerated Discharge Activity: Resume usual activity Patient Instructions: Urinary Tract Infection in Women (ED) Coding Level of Care Code ED Supervisor Plasma for Ivan Denis
[2024-10-15 10:48] LABS: Basophils # 0.1 10^3/uL (0.0-0.1); Basophils % 0.5 %; Eosinophils # 0.3 10^3/uL (0.0-0.8); Hematocrit 45.1 % (36-47); Lymphocytes # 3.3 10^3/uL (0.8-4.8); Lymphocytes % 32.8 %; Mean Corpuscular HGB Conc 32.4 g/dL (30-55); Mean Corpuscular Hemoglobin 30.5 pg (27-33); Mean Corpuscular Volume 94.4 fl (85-98); Mean Platelet Volume 9.2 fL (7.4-10.4); Monocytes % 9.9 %; Neutrophils # 5.39 10^3/uL (1.8-7.7); Neutrophils % 53.7 %; Nucleated Red Blood Cells % 0 %; Platelet Count 289 10^3/cmm (157-399); Red Blood Count 4.78 10^6/uL (3.85-5.65); Red Cell Distribution Width 13.4 % (12.1-15.1); White Blood Count 10.03 10^3/uL (3.29-11.43)
[2024-10-15] MEDS: cefTRIAXone 1,000 mg SDV 1000 MG IVP (11:00)
[2024-10-15 11:05] VITALS: BP 163/84; PULSE 67; O2SAT 96
[2024-10-15 11:05] LABS: Bilirubin Urine Negative (Negative); Blood Urine Negative (Negative); Glucose Urine UA Negative (Normal); Ketones Urine Negative (Negative); Leukocyte Esterase Urine Negative (Negative); Nitrate Urine Negative (Negative); Protein Urine Negative (Negative); Specific Gravity, Urine 1.004 (1.005-1.030); Urine Appearance Clear (CLEAR); Urine Color Yellow (Yellow); Urobilinogen Urine 0.2 mg/dL (Negative)
[2024-10-15 11:06] LABS: Alanine Aminotransferase 13 U/L (0-33); Alkaline Phosphatase 41 U/L (35-105); Anion Gap 14.8 (5-19); Aspartate Amino Transferase 15 U/L (0-32); Blood Urea Nitrogen 21 mg/dL (8-23); Calcium 9.2 mg/dL (8.5-10.5); Carbon Dioxide 25 mmol/L (22-29); Chloride 104 mmol/L (98-107); Creatinine Clr Calc Pharmacy 84.1406; Globulin 3.8 g/dL (1.3-4.6); Glomerular Filtration Rate 72.2 mL/min (90-130); Glucose 90 mg/dL (65-115); Osmolality Calculated 293 mOsm/kg (285-295); Potassium 3.8 mmol/L (3.5-5.1); Sodium 140 mmol/L (136-145); Total Bilirubin 0.2 mg/dL (0.15-1.2); Total Protein 7.8 g/dL (6.6-8.7)
[2024-10-15 11:10] LABS: Add Urine Microscopic? YES; Bacteria Urine 1+ /hpf; Hyaline Casts Urine 0-4 /lpf; RBC Urine 0-2 /hpf (0-2); Squamous Epithelial Cell Urine 0-5 /hpf (0-5); WBC Urine 0-5 /hpf (0-5)
[2024-10-15] MEDS: ibuprofen 600 mg Tablet PO (11:12)
[2024-10-15 12:19] VITALS: BP 133/86; PULSE 63; O2SAT 95
== END 2024-10-15 12:20 | disposition home or self-care (01) ==
PROVIDERS: Emergency Provider Emergency Medicine; PCP Nurse Practitioner
DX: N39.0 Urinary tract infection, site not specified (principal); Z79.4 Long term (current) use of insulin; Z87.891 Personal history of nicotine dependence; E11.22 Type 2 diabetes mellitus with diabetic chronic kidney disease; I12.9 Hypertensive chronic kidney disease with stage 1 through stage 4 chronic kidney disease, or unspecified chronic kidney disease; N18.2 Chronic kidney disease, stage 2 (mild); I25.10 Atherosclerotic heart disease of native coronary artery without angina pectoris; J44.9 Chronic obstructive pulmonary disease, unspecified; E78.5 Hyperlipidemia, unspecified; Z95.5 Presence of coronary angioplasty implant and graft
CPT/HCPCS: 36415; 80053; 81001; 85025; 96374; 99284; J0696

== ENCOUNTER → 2024-12-26 09:14 | Outpatient (BNVA) | payer MEDICARE, SELFPAY | PROVIDERS: PCP Nurse Practitioner; Visit Provider Nurse Practitioner | DX: E11.9 Type 2 diabetes mellitus without complications (principal) | CPT/HCPCS: 80053; 80061; 81000; 82306; 83036; 84443; 85025 ==

== ENCOUNTER → 2025-01-13 16:25 | Outpatient (BNVA) | payer MEDICARE, SELFPAY | PROVIDERS: PCP Nurse Practitioner; Visit Provider Nurse Practitioner | DX: L98.9 Disorder of the skin and subcutaneous tissue, unspecified (principal) | CPT/HCPCS: 88305 ==

== ENCOUNTER → 2025-02-12 07:51 | Outpatient (BNVA) | payer MEDICARE, SELFPAY | PROVIDERS: PCP Nurse Practitioner; Visit Provider Dermatology | DX: L82.1 Other seborrheic keratosis (principal); C44.319 Basal cell carcinoma of skin of other parts of face | CPT/HCPCS: 13132; 17311; 99202 ==

== ENCOUNTER → 2025-04-20 09:22 | Outpatient (BNVA) | payer MEDICARE, SELFPAY | PROVIDERS: PCP Nurse Practitioner; Visit Provider Nurse Practitioner | DX: E11.9 Type 2 diabetes mellitus without complications (principal); E11.42 Type 2 diabetes mellitus with diabetic polyneuropathy; Z79.4 Long term (current) use of insulin | CPT/HCPCS: 80053; 80061; 81000; 83036; 84443; 85025 ==

== ENCOUNTER 2025-06-15 17:57 | Inpatient (IN) | payer MEDICARE, SELFPAY ==
[2025-06-15] VITALS (7 sets, daily range): BP systolic 135–185; BP diastolic 59–94; PULSE 65–74; RESP 14–20; TEMP 36.7; O2SAT 92–96; BMI 39.9; BMI 40.3
--- NOTE | 2025-06-15 17:58 | XRR_ITS ---
PROCEDURE INFORMATION: Exam: XR Chest Exam date and time: 06/15/2025 6:12 PM Age: 64 years old Clinical indication: Pain; Chest pressure; Prior surgery; Surgery date: 6+ months; Surgery type: Cardiac stents; Additional info: Cp TECHNIQUE: Imaging protocol: Radiologic exam of the chest. Views: 1 view. COMPARISON: CR XR chest 2V* [id number] 01/30/2024 11:07 AM FINDINGS: Lungs: Unremarkable. No definite consolidation. Poor visualization of cardiac apex, though not significantly changed compared to prior. Pleural spaces: Unremarkable. No pleural effusion. No pneumothorax. Heart/Mediastinum: Unremarkable. No cardiomegaly. Bones/joints: Unremarkable. XR/XR chest 1V portable [id number] IMPRESSION: No definite acute findings.
--- NOTE | 2025-06-15 18:04 | ECG_ITS ---
[facility] Test Date: 2025-06-15 Pat Name: Beatrice Gaytan Department: Room: Gender: Female Nail Tech: : 1960 Requested By: Chuck Delarosa Order Number: [id number] Solange MD: Eddie Lopez M.D. Measurements Intervals [place] Rate: 73 P: 80 ND: 213 QRS: 42 QRSD: 99 T: 76 QT: 404 QTc: 446 Interpretive Statements SINUS RHYTHM WITH FIRST DEGREE AV BLOCK LOW QRS VOLTAGE IN PRECORDIAL LEADS [QRS DEFLECTION < 1.0 mV IN CHEST LEADS] Compared to ECG 10/20/2015 05:49:48 First degree AV block now present Low QRS voltage now present T-wave abnormality no longer present Electronically Signed On 06-16-2025 23:04:29 CDT by Eddie Lopez M.D. [email or web address]
--- OUTSIDE RECORDS SUMMARY | 2025-06-15 18:08 | XMS_ITS | Clinical Summary ---
Author Organization [facility] Facility Address [address] [place] [id number] Care Team Providers Care Clubhouse Attendant Name Role Phone Unavailable Primary Care Provider Unavailabl e Family History Medical History Relation Comments Autosomal Dominant Polycystic Kidney Disease Fat her 2 Dementia Father 2 Hypertension Father 2 Cancer Mother 2 Dementia Mother 2 Heart disease Mother 2 Hypertension Mother 2 Autosomal Dominant Polycystic Kidney Disease Sib ling Diabetes Sibling Kidney disease Sibling Stroke Sibling Relation Status Comments Father 1 Alive Father 2 Mother 1 Alive Mother 2 Sibling Social History Tobacco Use Types Packs/Day Years Used Date Smoking Tobacco: Every Day Comments Unknown Sex and Gender Information Value Date Recorded Sex Assigned at Not on file Legal Sex Female 12:43 PM EST Gender Identity Not on file Sexual Orientation Not on file Last Filed Vital Signs Vital Sign Reading Time Taken Comments Blood Pressure 152/90 12/17/2017 11: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 Pulse 80 12/17/2017 11: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 Temperature - - Respiratory Rate - - Oxygen Saturation - - Inhaled Oxygen Concentration - - Weight 94.5 kg (208 lb 4.8 oz) 12/17/2017 11: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 Height 165.1 cm (5' 5 ) 12/17/2017 11: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 Body Mass Index 34.66 12/17/2017 11: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 Plan of Treatment Health Maintenance Due Date Last Done Comments Breast Cancer Screening 1960 Pneumococcal Vaccine: 50+ Ye ars (1 of 2 - PCV) 1978 Colorectal Cancer Screening: Annual FOBT 2008 Colorectal Cancer Screening: Colonoscopy 2008 Colorectal Cancer Screening: Sigmoidoscopy 2008 Diabetes: Hemoglobin A1C 01/31/2020 12/11/2018 Diabetes: Ophthalmology Exam 01/31/2020 Diabetes: Pedal Pulse Checked 01/31/2020 Diabetes: Sensory Foot Exam 01/31/2020 Diabetes: Visual Foot Exam 01/31/2020 Influenza Vaccine (#1) 2025 Hepatitis B Vaccine Aged Out No longe r eligible based on patient's age to complete this topic Procedures Procedure Name Priority Date/Time Associated Diagnosis Comments HEMOGLOBIN A1C Routine 12/11/2018 from Last 3 Months or Most Recently Relevant to Health Maintenance Results * (ABNORMAL) Hemoglobin A1c (12/11/2018) Hemoglobin A1C 8.0(A) 4.0 - 6.0 Blood specimen (specimen) Venous blood / Unknown 12/11/2018 Narrative Dagmar Medellin MA - 01/21/2019 12:27 PM [facility] [address] [place] [address] Dr. Raoul Abrams, Mobile Sales Assistant Campbell JENSEN LAB BLOOD ORDERABLES Final Result from Last 3 Months or Most Recently Relevant to Health Maintenance
--- OUTSIDE RECORDS SUMMARY | 2025-06-15 18:08 | XMS_ITS | Encounter Summary ---
Author Organization [facility], [facility] Address [address] [facility] [address] [place] [address] Phone Care Team Providers Care Civil Preparedness Coordinator Name Role Phone Unavailable Primary Care Provider Unavailabl e Encounter Details Date Type Department Care Team (Late st Contact Info) Description 01/21/2019 Documentation Only [facility], [facility] [address] [place] [address] Scan, Generic Provider Social History Tobacco Use Types Packs/Day Years Used Date Smoking Tobacco: Every Day Comments Unknown Sex and Gender Information Value Date Recorded Sex Assigned at Not on file Legal Sex Female 12:43 PM EST Gender Identity Not on file Sexual Orientation Not on file documented as of this encounter Plan of Treatment Not on file documented as of this encounter Visit Diagnoses Not on filedocumented in this encounter
--- NOTE | 2025-06-15 18:26 | ED_ITS ---
HPI - Chest Pain 2 General: Chief Complaint: Chest Pain Stated Complaint: Chest and Back Pain\SON Time Seen by Provider: 06/15/25 18:16 History of Present Illness: Patient comes in with chest pain. States that all day she has been having off-and-on midsternal chest pain which she describes as a pressure, last for about 4 minutes at a time. States it radiates into the middle of her back. States she has a history of coronary artery disease status post multiple stents. States a couple years ago she was told she needed 1 in the back of her heart which is what she is concerned about today. States she still smokes. Will check labs, EKG, hold on the aspirin as she states she is allergic to it, and reassess. Associated symptoms: Reports dyspnea; Deny abdominal pain, fever(s), nausea, palpitations or vomiting Related Data Home Medications ?Medication ?Instructions ?Recorded ?Confirmed acetaminophen 325 mg tablet 325 mg PO QID PRN Pain 03/0505/04/25 (Tylenol) cholecalciferol (vitamin D3) 50 50 mcg PO DAILY 05/04/25 mcg (2,000 unit) tablet (Vitamin D3) cinnamon bark-chromium picolinate 1 cap PO DAILY 10/1505/04/25 500 mg-100 mcg capsule hffgbqwngksg-hfycpbqy-qezr 1 tab PO DAILY 10/15/24 fumarate 18 mg-folic acid 400 mcg tablet (One-A-Day Women's Complete) Previous Rx's ?Medication ?Instructions ?Recorded nebulizer and compressor (Portable #1 ea 08/12/21 Nebulizer System) blood-glucose meter (OneTouch #1 ea 10/31/22 Verio Flex Start kit) lancets 33 gauge #100 ea 10/24/23 blood-glucose,pellet preparation operator,cont #1 ea 12/30/24 (FreeStyle Shanon 3 [place]) Lantus U-100 Insulin 100 unit/mL See Rx Instructions S UBCUT DAILY 05/04/25 subcutaneous solution (insulin #40 mL glargine) acarbose 100 mg tablet 100 mg PO TID #270 tabs 04/13 02/03 albuterol sulfate 2.5 mg/3 mL 2.5 mg (3 mL) inhalation Q4H PRN 05/04/25 (0.083 %) solution for nebulization shortness of breat h or wheezing #180 mL albuterol sulfate 90 mcg/actuation 2 puff inhalation Q 6H PRN 05/04/25 aerosol inhaler shortness of breath or wheez ing #18 grams blood sugar diagnostic (OneTouch #100 ea 05/04/25 Verio test strips) blood-glucose sensor (FreeStyle #2 ea 05/04/25 Shnaon 3 Plus Sensor device) fenofibrate nanocrystallized 48 mg 48 mg PO DAILY #90 tabs 05/04/25 tablet furosemide 20 mg tablet 20 mg PO BID PRN edema #180 tabs 05/04/25 insulin lispro 100 unit/mL 12 - 21 unit (0.12 - 0.21 m L) 05/04/25 subcutaneous solution (Humalog SUBCUT TID 30 days #45 mL U-100 Insulin) insulin syringe-needle U-100 1 mL #100 ea 05/04/25 31 gauge x 5/16 lisinopril 20 mg tablet 20 mg PO BID #180 tabs 05/04 metoprolol tartrate 100 mg tablet 100 mg PO BID #180 t abs 05/04/25 trazodone 150 mg tablet 300 mg (2 x 150 mg) PO BEDTI ME 05/04/25 #180 tabs Allergies Allergy/AdvReac Type Severity Reaction Status Date / Time aspirin Allergy Unknown Unknown Verified 06/15/25 18:09 bisacodyl (From Dulcolax Allergy Unknown ALGY-Hives Verified 06/15/25 18:09 (bisacodyl)) dextromethorphan (From Allergy Unknown ALGY-Anaphy Verified 06/15/25 18:09 NyQuil) laxis doxylamine (From NyQuil) Allergy Unknown ALGY-Anaphy Verified 06/15/25 18:09 laxis insulin detemir (From Allergy Unknown ALGY-Difficulty Verified 06/15/25 18:09 Levemir U-100 Insulin) Breathing nitrofurantoin (From Allergy Unknown ALGY-Hives Verified 06/15/25 18:09 Macrobid) Penicillins Allergy Unknown ALGY-Anaphy Verified 06/15/25 18:09 laxis pseudoephedrine (From Allergy Unknown ALGY-Hives Verified 06/15/25 18:09 Sudafed) acetaminophen (From Tylenol) Allergy ALGY-Hives Verified 06/15/25 18:09 guaifenesin (From Mucinex DM) Allergy Nasal Verified 06/15/25 18:09 Bleed levofloxacin (From Levaquin) AdvReac Mild Foot Verified 06/15/25 18:09 shaking Review of Systems 2 Const: Denies: fever(s) or body aches Card: Reports: chest pain; Denies: palpitations Resp: Reports: dyspnea; Denies: productive cough GI: Denies: abdominal pain, nausea or vomiting Musc: Reports: back pain; Denies: neck pain PFSH ED 2 PFSH: Medical History (Updated 06/15/25 @ 21:11 by Lencho Meraz MD) CKD (chronic kidney disease) stage 2, GFR 60-89 ml/min Insomnia disorder Numbness and tingling in right hand Lumbar post-laminectomy syndrome Thoracic compression fracture Left nephrolithiasis Tobacco abuse History of myocardial infarction CAD (coronary artery disease) Generalized neuropathy History of Helicobacter pylori infection History of [place] spotted fever History of Lyme disease Vitamin D deficiency Fibromyalgia COPD (chronic obstructive pulmonary disease) with emphysema Benign essential hypertension with target blood pressure below 140/90 Hyperlipidemia, unspecified Diabetes mellitus with neurologic complication, with long-term current use of insulin History of stomach cancer Surgical History History of bilateral cataract extraction December 2024 History of colonoscopy 2011 History of back surgery 10/16/2017 Dr. Jan Cottrell L5-S1 reexploration/fusion/fixation History of colon surgery 1979 Hx of heart artery stent History of hysterectomy 1983 History of lumpectomy of left breast 1998 Family History Mother Lung disease Lung Cancer Heart disease Grandmother Diabetes Family/Other Diabetes Family/Other Heart disease Lung disease Social History Smoking and tobacco/nicotine status: former use of tobacco/nicotine Second hand smoke exposure: No Alcohol intake: never Substance/Drug Use: never Adopted: No Caregiver/support person: No Lives independently: Yes Household members: spouse Housing: House Marital status: service: No Current occupational status: disabled Do you think of yourself as: Straight/Heterosexual Current gender identity: Female Physical Exam 2 Const: COMMON NORMALS: no acute distress, patient oriented x3 and alert HENMT: COMMON NORMALS: normocephalic and atraumatic HEAD & SCALP: n ormocephalic and atraumatic Neck/C-Spine: COMMON NORMALS: supple Resp: COMMON NORMALS: normal respiratory effort, No retractions and No use of accessory muscles Cardio: COMMON NORMALS: regular rate and regular rhythm RATE: regular rate RHYTHM: regular rhythm Extremity: COMMON NORMALS: normal to inspection and full ROM Neuro: COMMON NORMALS: patient oriented x3 SENSORIUM/ORIENTATION: Yes alert Psych: COMMON NORMALS: mental status grossly normal and cooperative Course 2 Vital Signs: Vital signs: Vital Signs Temperature 98.1 F 06/15/25 18:05 Pulse Rate 69 06/15/25 18:05 Respiratory Rate 18 06/15/25 18:05 Blood Pressure 152/89 06/15/25 18:05 Pulse Oximetry 95 06/15/25 18:05 Oxygen Delivery Me thod Room Air 06/15/25 18:05 MDM - Chest Pain Medical Decision Making On reassessment I talked to the patient about her test results. Her initial troponin came back at 16 with a high end of normal being 10. She is not having any chest pain at this time but she still has some back pain from the coughing. Will give her a dose of tramadol 50 mg p.o. Her heart score is 5. I discussed the case with the hospitalist and we will admit for cardiac workup. Lab Data 06/15/25 19:15 06/15/25 18:56 Radiology Impressions Chest X-Ray 06/15/25 17:58 IMPRESSION: No definite acute findings. Laboratory Results WBC 11.16 10^3/uL (3.29-11.43) 06/15/25 19:15 Corrected WBC Cancelled 06/15/25 18:56 RBC 4.53 10^6/uL (3.85-5.65) 06/15/25 19:15 Hgb 13.80 g/dL (11.27-16.99) 06/15/25 19:15 Hct 42.1 % (36-47) 06/15/25 19:15 MCV 92.9 fl (85-98) 06/15/25 19:15 MCH 30.5 pg (27-33) 06/15/25 19:15 MCHC 32.8 g/dL (30-55) 06/15/25 19:15 RDW 13.5 % (12.1-15.1) 06/15/25 19:15 Plt Count 280 10^3/cmm (157-399) 06/15/25 19:15 MPV 9.2 fL (7.4-10.4) 06/15/25 19:15 Gran % Cancelled 06/15/25 18:56 Neut % (Auto) 47.7 % 06/15/25 19:15 Lymph % (Auto) 37.6 % 06/15/25 19:15 [place] % (Auto) 9.9 % 06/15/25 19:15 Eos % (Auto) 3.9 % 06/15/25 19:15 Baso % (Auto) 0.6 % 06/15/25 19:15 Neut # (Auto) 5.31 10^3/uL (1.8-7.7) 06/15/25 19:15 Lymph # (Auto) 4.2 10^3/uL (0.8-4.8) 06/15/25 19:15 [place] # (Auto) 1.1 10^3/uL (0.2-0.9) H 06/15/25 19:15 Eos # (Auto) 0.4 10^3/uL (0.0-0.8) 06/15/25 19:15 Baso # (Auto) 0.1 10^3/uL (0.0-0.1) 06/15/25 19:15 Absolute Gran (auto) Cancelled 06/15/25 18:56 Nucleated RBC % (auto) 0 % 06/15/25 19:15 Nucleated RBCs # 0.0 /100WBC 06/15/25 19:15 Sodium 141 mmol/L (136-145) 06/15/25 18:56 Potassium 4.6 mmol/L (3.5-5.1) 06/15/25 18:56 Chloride 104 mmol/L (98-107) 06/15/25 18:56 Carbon Dioxide 23 mmol/L (22-29) 06/15/25 18:56 Anion Gap 18.6 (5-19) 06/15/25 18:56 BUN 18 mg/dL (8-23) 06/15/25 18:56 Creatinine 0.9 mg/dL (0.5-0.9) 06/15/25 18:56 GFR Calculation 62.8 mL/min (90-130) L 06/15/25 18:56 Glucose 85 mg/dL (65-115) 06/15/25 18:56 Calculated Osmolality 293 mOsm/kg (285-295) 06/15/25 18:56 Calcium 9.3 mg/dL (8.5-10.5) 06/15/25 18:56 Total Bilirubin 0.2 mg/dL (0.15-1.2) 06/15/25 18:56 AST 19 U/L (0-32) 06/15/25 18:56 ALT 17 U/L (0-33) 06/15/25 18:56 Alkaline Phosphatase 48 U/L (35-105) 06/15/25 18:56 Troponin T Baseline 16 ng/L (0-10) H 06/15/25 18:56 NT-Pro-B Natriuret Pep 161 pg/mL (0-125) H 06/15/25 18:56 Total Protein 7.7 g/dL (6.6-8.7) 06/15/25 18:56 Albumin 4.1 g/dL (3.5-5.2) 06/15/25 18:56 Globulin 3.6 g/dL (1.3-4.6) 06/15/25 18:56 Lipase 53 U/L (13-60) 06/15/25 18:56 All radiology interpretation(s) finalized by discharge Discharge Plan Discharge Patient Disposition: Placed in Observation Clinical Impression: Chest pain Coding Level of Care Code ED Forensic Accountant for Ivan Denis
[2025-06-15 19:21] LABS: Hematocrit 42.1 % (36-47); Hemoglobin 13.80 g/dL (11.27-16.99); Mean Corpuscular HGB Conc 32.8 g/dL (30-55); Mean Corpuscular Hemoglobin 30.5 pg (27-33); Mean Corpuscular Volume 92.9 fl (85-98); Nucleated Red Blood Cells % 0 %; Platelet Count 280 10^3/cmm (157-399); Red Blood Count 4.53 10^6/uL (3.85-5.65); White Blood Count 11.16 10^3/uL (3.29-11.43)
[2025-06-15 19:21] LABS: Troponin(5th) Baseline 16 ng/L (0-10)
[2025-06-15 19:22] LABS: Alanine Aminotransferase 17 U/L (0-33); Albumin Level 4.1 g/dL (3.5-5.2); Alkaline Phosphatase 48 U/L (35-105); Aspartate Amino Transferase 19 U/L (0-32); Blood Urea Nitrogen 18 mg/dL (8-23); Calcium 9.3 mg/dL (8.5-10.5); Carbon Dioxide 23 mmol/L (22-29); Chloride 104 mmol/L (98-107); Creatinine Clr Calc Pharmacy 76.4850; Globulin 3.6 g/dL (1.3-4.6); Glucose 85 mg/dL (65-115); Lipase 53 U/L (13-60); Osmolality Calculated 293 mOsm/kg (285-295); Sodium 141 mmol/L (136-145); Total Protein 7.7 g/dL (6.6-8.7)
[2025-06-15 19:27] LABS: Anion Gap 18.6 (5-19); Potassium 4.6 mmol/L (3.5-5.1)
--- NOTE | 2025-06-15 19:45 | ECG_ITS ---
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 Measurements Intervals [place] Rate: 69 P: 92 LA: 214 QRS: 48 QRSD: 101 T: 73 QT: 422 QTc: 454 Interpretive Statements SINUS RHYTHM WITH FIRST DEGREE AV BLOCK WITH OCCASIONAL SUPRAVENTRICULAR PREMATURE COMPLEXES LOW QRS VOLTAGE IN PRECORDIAL LEADS [QRS DEFLECTION < 1.0 mV IN CHEST LEADS] Compared to ECG 06/15/2025 18:04:12 No significant changes Electronically Signed On 06-17-2025 09:29:04 CDT by Eddie Lopez M.D. [email or web address] [id number]
[2025-06-15 19:47] LABS: NT Pro B Type Natriuretic Pept 161 pg/mL (0-125)
--- NOTE | 2025-06-15 20:44 | ECG_ITS ---
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 Measurements Intervals [place] Rate: 68 P: -75 AL: 161 QRS: 47 QRSD: 99 T: 76 QT: 421 QTc: 449 Interpretive Statements SINUS RHYTHM WITH OCCASIONAL VENTRICULAR PREMATURE COMPLEXES Compared to ECG 06/15/2025 19:45:25 Ventricular premature complex(es) now present First degree AV block no longer present Electronically Signed On 06-17-2025 09:28:46 CDT by Eddie Lopez M.D. [email or web address] [id number]
[2025-06-15 21:13] LABS: Troponin 5 2HR 15.32 ng/L (0-10)
[2025-06-15 21:14] LABS: Troponin 5 2HR Delta -0.68 ABS# (0-10)
--- NOTE | 2025-06-15 21:53 | USCV_ITS ---
Beatrice Gaytan Age: 64 Gender: F : 1960 Exam Date: 06/15/2025 22:18 Ordering Phys: Kyle Souza MD Technologist: EZEQUIEL [place] [facility] [place]: chest pain, History of CAD s/p PCI, obesity, long- term smoker continues smoking BP: 152 / 89 HR: 65 Rhythm: Sinus Technical Quality: Adequate MEASUREMENTS (Male / Female) Normal Values 2D ECHO LV Diastolic Diameter PLAX 4.3 cm 4.2 - 5.9 / 3.9 - 5.3 cm IVS Diastolic Thickness 1.7 cm 0.6 - 1.0 / 0.6 - 0.9 cm IVS Systolic Thickness 2.5 cm LVPW Diastolic Thickness 1.8 cm 0.6 - 1.0 / 0.6 - 0.9 cm LVPW Systolic Thickness 2.3 cm LVOT Diameter 1.9 cm LV Ejection Fraction 2D Teich 51.5 % LV Ejection Fraction MOD 4C 73.3 % LV Ejection Fraction MOD 2C 73.5 % LV Ejection Fraction 2C AL 76.4 % LA Diameter 4.1 cm Aorta at Sinotubular Diameter 2.5 cm IVC Diameter 1.1 cm M-MODE LA Ao Ratio MM 1.7 AV Cusp Separation MM 1.5 cm DOPPLER AV Peak Velocity 124.0 cm/s LVOT Peak Velocity 81.0 cm/s AV Area Cont Eq vti 1.8 cm squared AV Area Cont Eq pk 1.8 cm squared MV Peak Velocity 141.0 cm/s MV Area PHT 2.1 cm squared Mitral E to A Ratio 0.8 TV Peak Velocity 233.0 cm/s TR Peak Velocity 236.0 cm/s TR Peak Gradient 22.3 mmHg TV Peak E Velocity 44.0 cm/s PV Peak Velocity 95.0 cm/s FINDINGS Left Ventricle Normal left ventricular size and systolic function, EF 73%.moderate left ventricular hypertrophy. No regional wall motion abnormalities. Grade I/IV diastolic dysfunction (abnormal relaxation filling pattern), normal to mildly elevated filling pressures. Mild hypokinesia of the basal inferior wall segment Right Ventricle Normal right ventricular size and systolic function. Right Atrium Normal right atrial size. Left Atrium Moderately increased left atrial size. Mitral Valve Mild mitral valve regurgitation. Aortic Valve Thickened aortic valve. Tricuspid Valve Trace tricuspid valve regurgitation. Pulmonic Valve No gross abnormalities noted Pericardium No pericardial effusion. Aorta Normal aortic annulus size. IVC Normal inferior vena cava. CONCLUSIONS Normal left ventricular size and systolic function, EF 73%.moderate left ventricular hypertrophy. No regional wall motion abnormalities. Grade I/IV diastolic dysfunction (abnormal relaxation filling pattern), normal to mildly elevated filling pressures. Mild hypokinesia of the basal inferior wall segment. Moderately increased left atrial size. Mild mitral valve regurgitation. Thickened aortic valve. Trace tricuspid valve regurgitation. There is no pericardial effusion. There are no intracardiac masses. Compared to study from 06/04/2014, there is development of left- ventricular diastolic dysfunction Dr Eddie Lopez MD FAC (Electronically Signed) Final Date: 16 June 2025 00:06 S
--- NOTE | 2025-06-15 22:00 | PM.HP ---
Providers/Chief Complaint Primary Care Provider: MARTINE Pollock Chief Complaint: Chest and Back Pain\SON History of Present Illness Beatrice Gaytan is a 64 year old female with a past medical history of type 2 diabetes mellitus, hypertension, hyperlipidemia, CAD, intolerance to aspirin Plavix?, History of stenting? Who presents [facility] for chest pain. Patient reports that she has had substernal chest pain, pressure-like pain, multiple times throughout the day radiating to her back, chest pain is becoming more frequent, more significant, so she has come to the emergency room for evaluation, she reports an intolerance to aspirin, she tells me that she has bleeding issues but denies history of GI bleeds, denies a history of blood transfusions she tells me that she has had a stent placed, when I questioned her if she has ever been placed on Plavix she is tells me that she is intolerant all blood thinners?, But again denies GI bleeds, history of anemia, history of requiring blood transfusions history of hemoptysis, history of hematemesis, she is a current smoker, does report shortness of breath, wheezing, nonproductive cough Medications/Allergies Home Medications ?Medication ?Instructions ?Recorded ?Confirmed ?Last Taken ?Type nebulizer and compressor (Portable #1 ea 08/12/21 05/04/25 Unknown Rx Nebulizer System) blood-glucose meter (OneTouch #1 ea 10/31/22 05/04/25 Unknown Rx Verio Flex Start kit) lancets 33 gauge #100 ea 10/24/23 05/04/25 Unknown Rx acetaminophen 325 mg tablet 325 mg PO QID PRN Pain 10/15/24 05/04/25 Unknown History (Tylenol) cholecalciferol (vitamin D3) 50 50 mcg PO DAILY 10/15/24 05/04/25 10/15/24 History mcg (2,000 unit) tablet (Vitamin D3) cinnamon bark-chromium picolinate 1 cap PO DAILY 10/15/24 05/04/25 10/14/24 History 500 mg-100 mcg capsule lrnyahiocgup-sqncyboc-pcgy 1 tab PO DAILY 10/15/24 05/04/25 10/14/24 History fumarate 18 mg-folic acid 400 mcg tablet (One-A-Day Women's Complete) blood-glucose,ingot supervisor,cont #1 ea 12/30/24 05/04/25 Unknown Rx (FreeStyle Shanon 3 [place]) Lantus U-100 Insulin 100 unit/mL See Rx Instructions SUBCUT DAILY 05/04/25 05/04/25 Unknown Rx subcutaneous solution (insulin #40 mL glargine) acarbose 100 mg tablet 100 mg PO TID #270 tabs 05/04/25 05/04/25 Unknown Rx albuterol sulfate 2.5 mg/3 mL 2.5 mg (3 mL) inhalation Q4H PRN 05/04/25 05/04/25 Unknown Rx (0.083 %) solution for nebulization shortness of breath or wheezing #180 mL albuterol sulfate 90 mcg/actuation 2 puff inhalation Q6H PRN 05/04/25 05/04/25 Unknown Rx aerosol inhaler shortness of breath or wheezing #18 grams blood sugar diagnostic (OneTouch #100 ea 05/04/25 05/04/25 Unknown Rx Verio test strips) blood-glucose sensor (FTL SOLARyle #2 ea 05/04/25 05/04/25 Unknown Rx Shanon 3 Plus Sensor device) fenofibrate nanocrystallized 48 mg 48 mg PO DAILY #90 tabs 05/04/25 05/04/25 Unknown Rx tablet furosemide 20 mg tablet 20 mg PO BID PRN edema #180 tabs 05/04/25 05/04/25 Unknown Rx insulin lispro 100 unit/mL 12 - 21 unit (0.12 - 0.21 mL) 05/04/25 05/04/25 Unknown Rx subcutaneous solution (Humalog SUBCUT TID 30 days #45 mL U-100 Insulin) insulin syringe-needle U-100 1 mL #100 ea 05/04/25 05/04/25 Unknown Rx 31 gauge x 5/16 lisinopril 20 mg tablet 20 mg PO BID #180 tabs 05/04/25 05/04/25 Unknown Rx metoprolol tartrate 100 mg tablet 100 mg PO BID #180 tabs 05/04/25 05/04/25 Unknown Rx trazodone 150 mg tablet 300 mg (2 x 150 mg) PO BEDTIME 05/04/25 05/04/25 Unknown Rx #180 tabs Allergies Allergy/AdvReac Type Severity Reaction Status Date / Time aspirin Allergy Unknown Unknown Verified 06/15/25 18:09 bisacodyl (From Dulcolax Allergy Unknown ALGY-Hives Verified 06/15/25 18:09 (bisacodyl)) dextromethorphan (From Allergy Unknown ALGY-Anaphy Verified 06/15/25 18:09 NyQuil) laxis doxylamine (From NyQuil) Allergy Unknown ALGY-Anaphy Verified 06/15/25 18:09 laxis insulin detemir (From Allergy Unknown ALGY-Difficulty Verified 06/15/25 18:09 Levemir U-100 Insulin) Breathing nitrofurantoin (From Allergy Unknown ALGY-Hives Verified 06/15/25 18:09 Macrobid) Penicillins Allergy Unknown ALGY-Anaphy Verified 06/15/25 18:09 laxis pseudoephedrine (From Allergy Unknown ALGY-Hives Verified 06/15/25 18:09 Sudafed) acetaminophen (From Tylenol) Allergy ALGY-Hives Verified 06/15/25 18:09 guaifenesin (From Mucinex DM) Allergy Nasal Verified 06/15/25 18:09 Bleed levofloxacin (From Levaquin) AdvReac Mild Foot Verified 06/15/25 18:09 shaking PFSH Acute PFSH: Medical History CKD (chronic kidney disease) stage 2, GFR 60-89 ml/min Insomnia disorder Numbness and tingling in right hand Lumbar post-laminectomy syndrome Thoracic compression fracture Left nephrolithiasis Tobacco abuse History of myocardial infarction CAD (coronary artery disease) Generalized neuropathy History of Helicobacter pylori infection History of [place] spotted fever History of Lyme disease Vitamin D deficiency Fibromyalgia COPD (chronic obstructive pulmonary disease) with emphysema Benign essential hypertension with target blood pressure below 140/90 Hyperlipidemia, unspecified Diabetes mellitus with neurologic complication, with long-term current use of insulin History of stomach cancer Surgical History History of bilateral cataract extraction December 2024 History of colonoscopy 2011 History of back surgery 10/16/2017 Dr. Jan Cottrell L5-S1 reexploration/fusion/fixation History of colon surgery 1979 Hx of heart artery stent History of hysterectomy 1983 History of lumpectomy of left breast 1998 Family History Mother Lung disease Lung Cancer Heart disease Grandmother Diabetes Family/Other Diabetes Family/Other Heart disease Lung disease Social History Smoking and tobacco/nicotine status: former use of tobacco/nicotine Second hand smoke exposure: No Alcohol intake: never Substance/Drug Use: never Adopted: No Caregiver/support person: No Lives independently: Yes Household members: spouse Housing: House Marital status: service: No Current occupational status: disabled Do you think of yourself as: Straight/Heterosexual Current gender identity: Female Vitals/I&O/Wt Last Vital Signs Temp 98.1 F 06/15/25 18:05 Pulse 69 06/15/25 18:05 Resp 18 06/15/25 18:05 BP 152/89 06/15/25 18:05 Pulse Ox 95 06/15/25 18:05 O2 Del Method Room Air 06/15/25 18:05 Weight last 48 hrs Weight 108.862 kg Physical Exam Const: COMMON NORMALS: no acute distress and patient oriented x3 HENMT: COMMON NORMALS: normocephalic HEAD & SCALP: normocephalic Resp: COMMON NORMALS: normal respiratory effort, No retractions, No use of accessory muscles and clear to auscultation bilaterally AUSCULTATION: clear to auscultation bilaterally Cardio: COMMON NORMALS: regular rate, regular rhythm, S1 normal heart sound present and S2 normal heart sound present RATE: regular rate RHYTHM: regular rhythm HEART SOUNDS: S1 normal heart sound present and S2 normal heart sound present GI: COMMON NORMALS: Normal to inspection, nondistended, normoactive bowel sounds present, Soft to palpation and non-tender Extremity: COMMON NORMALS: no calf tenderness and no pedal edema Neuro: COMMON NORMALS: patient oriented x3, CN's II-XII intact bilaterally and moves all extremities Psych: COMMON NORMALS: mental status grossly normal Data 06/15/25 19:15 06/15/25 18:56 A&P Assessment and plan 1. CAD (coronary artery disease): 2. Chest pain: 3. Hyperlipidemia, unspecified: 4. Diabetes mellitus with neurologic complication, with long-term current use of insulin: 5. Tobacco abuse: 6. COPD exacerbation: Plan: Chest pain - With history of cardiac stenting - Intolerance to aspirin/Plavix? Will hold off for now -Statin -Continue metoprolol -N.p.o. midnight -Cardiac stress test tomorrow morning -Cardiac echo -She will EKGs, start troponins, telemetry monitoring -Currently no active chest pain -Full code -Lovenox for DVT prophylaxis COPD exacerbation, prednisone burst, DuoNeb Type 2 diabetes mellitus -Hold Lantus -Moderate dose sliding scale Hypertensive urgency, continue lisinopril, continue metoprolol, will consider additional blood pressure management based on clinical progress PDMP PDMP Reviewed: Not Reviewed Attestations Medical Necessity Statement*: Patient requires hospitalization, outpatient with observation, for chest pain, COPD exacerbation Diagnoses CAD (coronary artery disease) I25.10 Chest pain R07.9 Hyperlipidemia, unspecified E78.5 Diabetes mellitus with neurologic complication, with long-term current use of insulin E11.49; Z79.4 Tobacco abuse Z72.0 COPD exacerbation J44.1
--- NOTE | 2025-06-15 23:17 | ECG_ITS ---
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
[2025-06-16] VITALS (19 sets, daily range): BP systolic 141–175; BP diastolic 53–90; PULSE 63–88; RESP 15–29; TEMP 36.1–36.7; O2SAT 90–96
[2025-06-16] MEDS: morphine 4 mg/mL SDV 1 mL 2 MG IVP ×4 (00:16→22:07)
--- NOTE | 2025-06-16 00:58 | PC.NURSE ---
Notified Dr. Souza that patient is refusing lovenox shot and all blood thinners. Per patient she was told by Dr. Adams to not take any blood thinners and that she has bleed out her nose/ears from them. Patient also refusing predinose as it will cause her BG to get into the 400's. She also refused Carafate and Protonix as she is not having indigestion nor has any stress ulcers. Patient was educated regarding medications and uses. BP was high into the 170's systolic, received orders to start Norvac 10 mg Q24hrs.
[2025-06-16 01:06] LABS: Hematocrit 44.8 % (36-47); Hemoglobin 14.60 g/dL (11.27-16.99); Mean Corpuscular HGB Conc 32.6 g/dL (30-55); Mean Corpuscular Hemoglobin 30.1 pg (27-33); Mean Corpuscular Volume 92.4 fl (85-98); Nucleated Red Blood Cells % 0 %; Platelet Count 270 10^3/cmm (157-399); Red Blood Count 4.85 10^6/uL (3.85-5.65); White Blood Count 11.48 10^3/uL (3.29-11.43)
[2025-06-16 01:22] LABS: Alanine Aminotransferase 15 U/L (0-33); Albumin Level 3.8 g/dL (3.5-5.2); Alkaline Phosphatase 46 U/L (35-105); Aspartate Amino Transferase 19 U/L (0-32); Blood Urea Nitrogen 16 mg/dL (8-23); Calcium 9.1 mg/dL (8.5-10.5); Carbon Dioxide 25 mmol/L (22-29); Chloride 104 mmol/L (98-107); Creatinine Clr Calc Pharmacy 86.4724; Globulin 3.9 g/dL (1.3-4.6); Glucose 101 mg/dL (65-115); Osmolality Calculated 293 mOsm/kg (285-295); Sodium 141 mmol/L (136-145); Total Protein 7.7 g/dL (6.6-8.7)
[2025-06-16 01:28] LABS: Anion Gap 16.0 (5-19); Potassium 4.0 mmol/L (3.5-5.1); Troponin 5 6HR 12.36 ng/L (0-10)
[2025-06-16 01:30] LABS: Troponin 5 6HR Delta -3.64 ng/L (0-12)
[2025-06-16 01:34] LABS: Cholesterol 159 mg/dL (0-200); HDL Cholesterol 38 mg/dL (60-100); Thyroid Stimulating Hormone 3.30 uIU/mL (0.27-4.20); Triglycerides 169 mg/dL (0-150)
[2025-06-16 01:36] LABS: NT Pro B Type Natriuretic Pept 161 pg/mL (0-125)
[2025-06-16 01:46] LABS: Estmated Average Glucose 146; Hemoglobin A1C 6.7 % (4.0-6.0)
--- NOTE | 2025-06-16 11:10 | PC.NURSE ---
Notified hospitalist via secure messaging to review her home meds such as her insulin, she normally takes lantus and humalog 12 units to 21 TID with meals per patient report and med list. She is on sliding scale here per protocol, she is concerned her blood sugar is still high after i gave her 4 units at breakfast. Also pt refusal of protonix IVP.
--- NOTE | 2025-06-16 15:40 | PM.CONSULT ---
Providers/Reason For Consult Consulting Physician/Specialty*: FAYE Lopez MD/cardiology Reason for Consult*: Patient with history of atherosclerotic heart diseas presenting with increasing episodes of chest pain. Abnormal Myocardial perfusion imaging. Requesting Physician: Attending Physician: Silvia Williamson MD Primary Care Provider: PASCUAL PollockP-C History of Present Illness History of Present Illness Beatrice Gaytan is a 64 year old female with a history of atherosclerotic heart disease and previous PCI's, is admitted to hospital through the emergency room where she presented with increasing episodes of chest pains. She had a Myocardial perfusion imaging today which today was found to be abnormal. Cardiology consult was requested for further cardiac evaluation recommendations. This patient is known to have atherosclerotic heart disease. She had the initial episode of acute coronary syndrome in May of 2014. She had clinical features of a non-ST elevation myocardial infarction at that time. Cardiac catheterization at that time revealed a high-grade lesion in the left anterior descending artery. She underwent a PCI of this lesion by Dr. Martini. Since she could not take aspirin, she was treated with the Plavix and IV heparin during the procedure. No documented bleeding complication during the hospital admission. She had an abnormal Myocardial perfusion imaging in October 2015. Repeat cardiac catheterization at that time revealed high-grade lesions in the proximal and mid right coronary artery. She had a total of 3 stents placed in the RCA at that time. This time also, she was given IV heparin during the procedure and was treated with the Plavix following the procedure. According to the records, she was given Plavix following the procedure both times. But as per the patient, she was told by Dr. Adams that she should not be taking any blood thinning medications?. Apparently there is no documentation in the chart regarding this. It is not clear as to how long she took the Plavix following the procedure. Patient has a poor recollection of events. Her also does not recall these details. She has a history of hypertension, diabetes, dyslipidemia, chronic kidney disease, degenerative joint disease, fibromyalgia, chronic back pain,, history of back surgery, neuropathy and COPD. 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 According to her, she has been doing okay up until 2 weeks ago when she started having chest pains. Shehas been having chest pains almost every day, each time lasting about 10 to 15 minutes. No definite precipitating factors. The pain subsides spontaneously. The intensity was moderate. Yesterday she had a 4 or 5 episodes of chest pains of moderate to severe in intensity. Because of increasing episodes of chest pains, she was brought to the hospital. Cardiac enzymes are negative for myocardial infarction so far. She underwent a Myocardial perfusion imaging today. She was found to have moderate area of ischemia in the distribution of the Left anterior descending artery/circumflex artery. (She had a summed difference score of 5/13). Review of Systems Narrative: CONSTITUTIONAL: No fever or chills. Has been having significant dyspnea on exertion and easy fatigability. EYES: No blurring of vision or other visual disturbances lately. ENT: No hoarseness of voice, auditory disturbances or sore throat. CARDIOVASCULAR: As mentioned above. RESPIRATORY: No significant cough. GASTROINTESTINAL: No hematemesis or melena. GENITOURINARY: History of chronic kidney disease INTEGUMENTARY: No skin rashes or history of skin cancer. NEURO: History of neuropathic pain PSYCHIATRIC: No history of psychosis or major depression. HEMATOLOGIC: No bleeding disorders or significant anemia. ENDOCRINE: Insulin requiring diabetes MUSCULOSKELETAL: No recent joint pain or swelling. ALLERGY/IMMUNOLOGY: As mentioned above. Medications/Allergies Home Medications ?Medication ?Instructions ?Recorded ?Confirmed ?Last Taken ?Type nebulizer and compressor (Portable #1 ea 08/12/21 06/16/25 Unknown Rx Nebulizer System) blood-glucose meter (OneTouch #1 ea 10/31/22 06/16/25 Unknown Rx Verio Flex Start kit) lancets 33 gauge #100 ea 10/24/23 06/16/25 Unknown Rx acetaminophen 325 mg tablet 325 mg PO QID PRN Pain 10/15/24 06/15/25 1 Day Ago History (Tylenol) ~06/14/25 cholecalciferol (vitamin D3) 50 50 mcg PO DAILY 10/15/24 06/15/25 1 Day Ago History mcg (2,000 unit) tablet (Vitamin ~06/14/25 D3) cinnamon bark-chromium picolinate 1 cap PO DAILY 10/15/24 06/15/25 1 Day Ago History 500 mg-100 mcg capsule ~06/14/25 mytsxrqzqsgq-hgqbawvd-bnit 1 tab PO DAILY 10/15/24 06/15/25 1 Day Ago History fumarate 18 mg-folic acid 400 mcg ~06/14/25 tablet (One-A-Day Women's Complete) blood-glucose,broadcast field supervisor,cont #1 ea 12/30/24 06/16/25 Unknown Rx (FreeStyle [place] 3 [place]) Lantus U-100 Insulin 100 unit/mL See Rx Instructions SUBCUT DAILY 05/04/25 06/15/25 1 Day Ago Rx subcutaneous solution (insulin #40 mL ~06/14/25 glargine) acarbose 100 mg tablet 100 mg PO TID #270 tabs 05/04/25 06/15/25 1 Day Ago Rx ~06/14/25 albuterol sulfate 2.5 mg/3 mL 2.5 mg (3 mL) inhalation Q4H PRN 05/04/25 06/15/25 1 Day Ago Rx (0.083 %) solution for nebulization shortness of breath or wheezing ~06/14/25 #180 mL albuterol sulfate 90 mcg/actuation 2 puff inhalation Q6H PRN 05/04/25 06/15/25 1 Day Ago Rx aerosol inhaler shortness of breath or wheezing ~06/14/25 #18 grams blood sugar diagnostic (OneTouch #100 ea 05/04/25 06/16/25 Unknown Rx Verio test strips) blood-glucose sensor (FreeStyle #2 ea 05/04/25 06/16/25 Unknown Rx Shanon 3 Plus Sensor device) fenofibrate nanocrystallized 48 mg 48 mg PO DAILY #90 tabs 05/04/25 06/15/25 1 Day Ago Rx tablet ~06/14/25 furosemide 20 mg tablet 20 mg PO BID PRN edema #180 tabs 05/04/25 06/15/25 1 Day Ago Rx ~06/14/25 insulin lispro 100 unit/mL 12 - 21 unit (0.12 - 0.21 mL) 05/04/25 06/15/25 1 Day Ago Rx subcutaneous solution (Humalog SUBCUT TID 30 days #45 mL ~06/14/25 U-100 Insulin) insulin syringe-needle U-100 1 mL #100 ea 05/04/25 06/16/25 Unknown Rx 31 gauge x 5/16 lisinopril 20 mg tablet 20 mg PO BID #180 tabs 05/04/25 06/15/25 1 Day Ago Rx ~06/14/25 metoprolol tartrate 100 mg tablet 100 mg PO BID #180 tabs 05/04/25 06/15/25 1 Day Ago Rx ~06/14/25 trazodone 150 mg tablet 300 mg (2 x 150 mg) PO BEDTIME 05/04/25 06/15/25 1 Day Ago Rx #180 tabs ~06/14/25 melatonin 3 mg tablet 10 mg PO DAILY 06/15/25 06/15/25 1 Day Ago History ~06/14/25 Allergies Allergy/AdvReac Type Severity Reaction Status Date / Time aspirin Allergy Unknown Unknown Verified 06/15/25 18:09 bisacodyl (From Dulcolax Allergy Unknown ALGY-Hives Verified 06/15/25 18:09 (bisacodyl)) dextromethorphan (From Allergy Unknown ALGY-Anaphy Verified 06/15/25 18:09 NyQuil) laxis doxylamine (From NyQuil) Allergy Unknown ALGY-Anaphy Verified 06/15/25 18:09 laxis insulin detemir (From Allergy Unknown ALGY-Difficulty Verified 06/15/25 18:09 Levemir U-100 Insulin) Breathing nitrofurantoin (From Allergy Unknown ALGY-Hives Verified 06/15/25 18:09 Macrobid) Penicillins Allergy Unknown ALGY-Anaphy Verified 06/15/25 18:09 laxis pseudoephedrine (From Allergy Unknown ALGY-Hives Verified 06/15/25 18:09 Sudafed) acetaminophen (From Tylenol) Allergy ALGY-Hives Verified 06/15/25 18:09 guaifenesin (From Mucinex DM) Allergy Nasal Verified 06/15/25 18:09 Bleed levofloxacin (From Levaquin) AdvReac Mild Foot Verified 06/15/25 18:09 shaking Current Medications Generic Name Dose Route Start Last Admin Trade Name Freq PRN Reason Stop Dose Admin Acetaminophen 650 mg 06/15/25 23:17 06/16/25 06:41 Acetaminophen 325 Mg Tablet PO 650 mg Q6H PRN Administration Mild/Mod Pain Or Temp >/= 101 Albuterol/Ipratropium 3 ml 06/16/25 02:00 06/16/25 14:32 Ipratropium-Albuterol 3 Ml Neb INHALATION 3 ml Q6H.RESP CHAZ Administration Amlodipine Besylate 10 mg 06/16/25 00:30 06/16/25 01:05 Amlodipine 10 Mg Tablet PO 10 mg Q24H CHAZ Administration Atorvastatin Calcium 40 mg 06/15/25 23:17 06/16/25 00:16 Atorvastatin 40 Mg Tablet PO 40 mg BEDTIME CHAZ Administration Enoxaparin Sodium 40 mg 06/16/25 09:00 06/16/25 06:43 Enoxaparin 40 Mg/0.4 Ml Syringe SUBCUT Not Given Q24H CHAZ Fenofibrate 48 mg 06/16/25 09:00 06/16/25 09:16 Fenofibrate 48 Mg Tablet PO 48 mg DAILY CHAZ Administration Insulin Human Lispro 0 unit 06/16/25 08:00 06/16/25 13:00 Insulin Lispro 100 Unit/1 Ml SUBCUT 6 unit WM&BEDTIME CHAZ Administration Protocol Lisinopril 20 mg 06/16/25 09:00 06/16/25 09:16 Lisinopril 20 Mg Tablet PO 20 mg BID CHAZ Administration Metoprolol Tartrate 100 mg 06/16/25 09:00 06/16/25 09:18 Metoprolol Tartrate 50 Mg Tablet PO 100 mg BID CHAZ Administration Morphine Sulfate 2 mg 06/15/25 23:17 06/16/25 09:14 Morphine 4 Mg/Ml Sdv 1 Ml IVP 2 mg Q4H PRN Administration SEVERE PAIN Pantoprazole Sodium 40 mg 06/15/25 23:17 06/16/25 11:01 Pantoprazole 40 Mg Sdv IVP Not Given Q12H CHAZ Prednisone 40 mg 06/15/25 23:17 06/16/25 00:13 Prednisone 20 Mg Tablet PO Not Given BEDTIME CHAZ Sucralfate 1 gm 06/15/25 23:17 06/16/25 12:27 Sucralfate 1 Gm/10 Ml Oral Liq Udc PO Not Given Q6H CHAZ PFSH Acute PFSH: Medical History CKD (chronic kidney disease) stage 2, GFR 60-89 ml/min Insomnia disorder Numbness and tingling in right hand Lumbar post-laminectomy syndrome Thoracic compression fracture Left nephrolithiasis Tobacco abuse History of myocardial infarction CAD (coronary artery disease) Generalized neuropathy History of Helicobacter pylori infection History of [place] spotted fever History of Lyme disease Vitamin D deficiency Fibromyalgia COPD (chronic obstructive pulmonary disease) with emphysema Benign essential hypertension with target blood pressure below 140/90 Mixed hyperlipidemia Type 2 diabetes mellitus with diabetic polyneuropathy, with long-term current use of insulin History of stomach cancer Surgical History History of bilateral cataract extraction December 2024 History of colonoscopy 2011 History of back surgery 10/16/2017 Dr. Jan Cottrell L5-S1 reexploration/fusion/fixation History of colon surgery 1979 Hx of heart artery stent History of hysterectomy 1983 History of lumpectomy of left breast 1998 Family History Mother Lung disease Lung Cancer Heart disease Grandmother Diabetes Family/Other Diabetes Family/Other Heart disease Lung disease Social History Smoking and tobacco/nicotine status: former use of tobacco/nicotine Second hand smoke exposure: No Alcohol intake: never Substance/Drug Use: never Adopted: No Caregiver/support person: No Lives independently: Yes Household members: spouse Housing: House Marital status: service: No Current occupational status: disabled Do you think of yourself as: Straight/Heterosexual Current gender identity: Female Vitals/I&O/Wt Last Vital Signs Temp 96.9 F L 06/16/25 12:00 Pulse 63 06/16/25 14:37 Resp 16 06/16/25 14:33 BP 163/74 06/16/25 12:00 Pulse Ox 93 06/16/25 14:33 O2 Del Method Room Air 06/16/25 14:33 06/16/25 06/16/25 06/16/25 06:59 14:59 22:59 Intake Total 720 / 720 Balance 720 / 720 Weight last 48 hrs Weight 239 lb Weight 242 lb 2 oz Weight 240 lb Physical Exam Narrative: GENERAL: The patient is alert and oriented times three. Not in any acute distress. Moderate obesity HEENT: No significant pallor, icterus or lymphadenopathy.Oral cavity: There are no mucous membrane lesions. NECK: Trachea appears to be central. No masses noted. No JVD or thyromegaly appreciated. RESPIRATORY: Chest is symmetrical. No intercostals muscle retraction or any accessory muscle activation. There is no chest wall tenderness. Breath sounds are heard bilaterally. No rales or rhonchi heard. No evidence of any consolidation. BREASTS: Deferred. HEART: The heart sounds are normal. No S3 or S4. No significant murmurs. No pericardial rub ABDOMEN: No vessel pulsations or distention. No tenderness. No organomegaly appreciated. Bowel sounds are normally heard. : Deferred. RECTAL: Deferred. LYMPHATIC: No lymphadenopathy noted in the neck. EXTREMITIES: The peripheral pulses are palpable bilaterally, slightly weak. MUSCULOSKELETAL: No acute joint deformities or swelling SKIN: There are no significant rashes or ecchymosis NEUROPSYCHIATRIC: The patient is alert and oriented x3. Appears to be in a good mood. No tremors or rigidity noted. Data 06/16/25 00:53 06/16/25 00:53 Other Labs: Laboratory Last Values WBC 11.48 10^3/uL (3.29-11.43) H 06/16/25 00:53 Corrected WBC Cancelled 06/15/25 18:56 RBC 4.85 10^6/uL (3.85-5.65) 06/16/25 00:53 Hgb 14.60 g/dL (11.27-16.99) 06/16/25 00:53 Hct 44.8 % (36-47) 06/16/25 00:53 MCV 92.4 fl (85-98) 06/16/25 00:53 MCH 30.1 pg (27-33) 06/16/25 00:53 MCHC 32.6 g/dL (30-55) 06/16/25 00:53 RDW 13.6 % (12.1-15.1) 06/16/25 00:53 Plt Count 270 10^3/cmm (157-399) 06/16/25 00:53 MPV 9.5 fL (7.4-10.4) 06/16/25 00:53 Gran % Cancelled 06/15/25 18:56 Neut % (Auto) 46.3 % 06/16/25 00:53 Lymph % (Auto) 39.5 % 06/16/25 00:53 [place] % (Auto) 9.6 % 06/16/25 00:53 Eos % (Auto) 3.8 % 06/16/25 00:53 Baso % (Auto) 0.6 % 06/16/25 00:53 Neut # (Auto) 5.31 10^3/uL (1.8-7.7) 06/16/25 00:53 Lymph # (Auto) 4.5 10^3/uL (0.8-4.8) 06/16/25 00:53 [place] # (Auto) 1.1 10^3/uL (0.2-0.9) H 06/16/25 00:53 Eos # (Auto) 0.4 10^3/uL (0.0-0.8) 06/16/25 00:53 Baso # (Auto) 0.1 10^3/uL (0.0-0.1) 06/16/25 00:53 Absolute Gran (auto) Cancelled 06/15/25 18:56 Nucleated RBC % (auto) 0 % 06/16/25 00:53 Nucleated RBCs # 0.0 /100WBC 06/16/25 00:53 Sodium 141 mmol/L (136-145) 06/16/25 00:53 Potassium 4.0 mmol/L (3.5-5.1) 06/16/25 00:53 Chloride 104 mmol/L (98-107) 06/16/25 00:53 Carbon Dioxide 25 mmol/L (22-29) 06/16/25 00:53 Anion Gap 16.0 (5-19) 06/16/25 00:53 BUN 16 mg/dL (8-23) 06/16/25 00:53 Creatinine 0.8 mg/dL (0.5-0.9) 06/16/25 00:53 GFR Calculation 72.0 mL/min (90-130) L 06/16/25 00:53 Glucose 101 mg/dL (65-115) 06/16/25 00:53 POC Glucose 202 mg/dL (70-110) H 06/16/25 11:04 Estimat Average Glucose 146 06/16/25 00:53 Hemoglobin A1c 6.7 % (4.0-6.0) H 06/16/25 00:53 Calculated Osmolality 293 mOsm/kg (285-295) 06/16/25 00:53 Calcium 9.1 mg/dL (8.5-10.5) 06/16/25 00:53 Total Bilirubin 0.3 mg/dL (0.15-1.2) 06/16/25 00:53 AST 19 U/L (0-32) 06/16/25 00:53 ALT 15 U/L (0-33) 06/16/25 00:53 Alkaline Phosphatase 46 U/L (35-105) 06/16/25 00:53 Troponin T Baseline 16 ng/L (0-10) H 06/15/25 18:56 Troponin T 120 Minute 15.32 ng/L (0-10) H 06/15/25 20:45 Delta Troponin T -0.68 ABS# (0-10) L 06/15/25 20:45 Troponin T Hi Sens 6Hr 12.36 ng/L (0-10) H 06/16/25 00:53 Troponin T Hi Sens 6Hr Delta -3.64 ng/L (0-12) L 06/16/25 00:53 NT-Pro-B Natriuret Pep 161 pg/mL (0-125) H 06/16/25 00:53 Total Protein 7.7 g/dL (6.6-8.7) 06/16/25 00:53 Albumin 3.8 g/dL (3.5-5.2) 06/16/25 00:53 Globulin 3.9 g/dL (1.3-4.6) 06/16/25 00:53 Triglycerides 169 mg/dL (0-150) H 06/16/25 00:53 Cholesterol 159 mg/dL (0-200) 06/16/25 00:53 LDL Cholesterol, Calc 87 mg/dL (50-129) 06/16/25 00:53 HDL Cholesterol 38 mg/dL (60-100) L 06/16/25 00:53 LDL/HDL Ratio 2.29 RATIO (0.00-3.22) 06/16/25 00:53 Cholesterol/HDL Ratio 4.18 mg/dL (0.0-4.40) 06/16/25 00:53 Lipase 53 U/L (13-60) 06/15/25 18:56 TSH 3.30 uIU/mL (0.27-4.20) 06/16/25 00:53 EKG 1: My Interpretation: Normal sinus rhythm with occasional PVCs. Nonspecific T wave changes. Other data: Myocardial perfusion imaging from 06/15/2025 1. Myocardial perfusion imaging revealing moderate area of minimal to moderately decreased tracer uptake involving the inferolateral, anterolateral and anterior regions with significant reversibility suggesting myocardial ischemia in the distribution of the left circumflex artery/Left anterior descending artery 2. Normal LV ejection fraction of 67%. 3. LV wall motion analysis revealing no gross wall motion abnormalities. 4. Normal LV volume Compared to the study from 04/20/2020, the ischemic burden has slightly increased Echocardiogram on 06/15/2025 Normal left ventricular size and systolic function, EF 73%.moderate left ventricular hypertrophy. No regional wall motion abnormalities. Grade I/IV diastolic dysfunction (abnormal relaxation filling pattern), normal to mildly elevated filling pressures. Mild hypokinesia of the basal inferior wall segment. Moderately increased left atrial size. Mild mitral valve regurgitation. Thickened aortic valve. Trace tricuspid valve regurgitation. There is no pericardial effusion. There are no intracardiac masses. Compared to study from 06/04/2014, there is development of left- ventricular diastolic dysfunction Cardiac catheterization 2013 1-Normal LM 2-LAD is a medium caliber moderate size vessel with 90% mid stenosis 3-LCx is a small caliber and non dominant vessel with 60% Proximal stenosis 4-RCA is a medium size and caliber vessel with 60% mid bifurcating stenosis 5-High LVEDP 27mmHg PCI to Mid LAD Successful PCI to mid LAD.Lesion was prepared with 2.18u86au Emerge balloon, followed by deployment of Promus Premier 2.5x24mm stent posted at high ADI of 15mm .Excellent angiographic result with MELISA-3 flow was achieved A&P Assessment and plan 1. Abnormal nuclear stress test: The stress test is suggestive of ischemia in the distribution of the Left anterior descending artery and circumflex artery. Possibility of restenosis of the intervening lesion in the LAD/progression of disease in the other regions are considerations. 2. Atherosclerosis of [place] coronary artery of [place] heart with unstable angina pectoris: This patient had a PCI of the LAD and the right coronary artery in the past. She had a moderate disease in the circumflex artery with the last angiogram. Possibility of progression of the disease in this vessel and possible restenosis of the LAD lesion are considerations. In order to further evaluate the coronary status, she requires a cardiac catheterization. 3. Mixed hyperlipidemia: Continue on the current medications. 4. Benign essential hypertension with target blood pressure below 140/90: Blood pressure is elevated. Need to optimize antihypertensive medications. 5. Type 2 diabetes mellitus with diabetic polyneuropathy, with long-term current use of insulin: The blood sugar seems to be fairly under control. 6. History of cigarette smoking: Patient is known to have COPD. She uses bronchodilators off and on. Plan: Other problems are Multiple drug allergies including aspirin penicillin Multiple comorbidities ? Bleeding complications with blood thinning medications The implication of the test results were discussed with the patient in detail. Her LV ejection fraction is normal by echocardiogram. In view of the patient's multiple risk factors, previous history of multiple PCI's and the current abnormal perfusion imaging, most likely she may have underlying coronary ischemia causing the symptoms. In order to further evaluate the coronary status, she requires a cardiac catheterization. Because of the history of allergy to aspirin, she need to be kept on Plavix for a year or so. Patient is concerned about taking any blood thinning medications , even though she was treated with the Plavix and heparin in the past. So currently the patient is undecided about the angiogram. I may discuss this again with her family. Patient seems to have some amount of cognitive dysfunction. After discussing this with the family, a final decision will be made. In the meanwhile, we will try to optimize her medical treatment. Thank you for the opportunity eval this patient make these recommendations PDMP PDMP Reviewed: Not Reviewed Coding Level of Care Code 46300 Diagnoses Abnormal nuclear stress test R94.39 Atherosclerosis of [place] coronary artery of [place] heart with unstable angina pectoris I25.110 [place] vs. transplanted heart: [place] heart Mixed hyperlipidemia E78.2 Hyperlipidemia type: mixed hyperlipidemia Benign essential hypertension with target blood pressure below 140/90 I10 Type 2 diabetes mellitus with diabetic polyneuropathy, with long-term current use of insulin E11.42; Z79.4 Diabetes mellitus type: type 2 Diabetes mellitus complication detail: with polyneuropathy History of cigarette smoking Z87.891
--- NOTE | 2025-06-16 17:32 | ECG_ITS ---
[facility] 2025-[facility]-16 Pat Name: Beatrice Gaytan Department: Room: 111 Gender: Female Capability Lead: : 1960 Requested By: Silvia Williamson Order Number: [id number] Sol[place] MD: Eddie Lopez M.D. Measurements Intervals [place] Rate: 61 P: -57 NE: 146 QRS: -9 QRSD: 102 T: 54 QT: 442 QTc: 446 Interpretive Statements SINUS RHYTHM Compared to ECG 06/15/2025 20:44:16 Ventricular premature complex(es) no longer present Electronically Signed On 06-16-2025 23:06:49 CDT by Eddie Lopez M.D. [email or web address]
--- NOTE | 2025-06-16 18:27 | P.PN_ITS ---
Subjective 2 Subjective: The patient was seen in the morning, she was having chest pain with chest heaviness specifically in the center not radiating to her arm or any part of her body. Mild shortness of breath associated with this. The patient vitals at that time were normal and she was breathing at room air in the normal range of oxygen saturation. The patient also reported that she is having such kind of chest pain on and off that last 3 to 4 minutes or maximum 5 minutes on and off that is not related to exertion in the past few days He is also having history of stent but due to some concerns with the blood thinners as per her cardiology she was not put on blood thinners since she has increased bleeding tendency does not know if she has any bleeding disorder therefore currently post stenting she is not on any aspirin or clopidogrel and also prefers not to have any blood thinners in her management for the moment He underwent nuclear stress test and was found to have reversible perfusion defect Cardiology on-call Dr. Lopez and performed to follow his recommendations Vitals/I&O/Wt Last Vital Signs Temp 97.8 F 06/16/25 16:00 Pulse 64 06/16/25 16:00 Resp 15 06/16/25 16:11 BP 172/53 06/16/25 16:00 Pulse Ox 92 06/16/25 16:11 O2 Del Method Room Air 06/16/25 16:00 06/16/25 06/16/25 06/16/25 06:59 14:59 22:59 Intake Total 720 / 720 Balance 720 / 720 Weight last 48 hrs Weight 108.409 kg Weight 109.826 kg Weight 108.862 kg Physical Exam 2 Narrative: General: Alert oriented x3, patient seen was in mild distress due to chest pain and mild dyspnea HEENT: Normocephalic, atraumatic, EOMI, breathing at normal oxygen saturation on room air Cardio: Regular rate rhythm, normal S1-S2, no murmurs rubs gallops, JVD normal Respiratory: Good bilateral air entry, no wheezes no rhonchi appreciated GI: Abdomen soft, nontender, nondistended, normoactive bowel sounds present all 4 quadrants, Neuro: Cranial nerves II to XII intact, strength 5/5, sensation 5/5, no gross neurological deficit Behavior: Appropriate and cooperative Extremities: Mild trace pedal edema and normal pulses Skin: Visible skin intact, no rashes Data 06/16/25 00:53 06/16/25 00:53 A&P Assessment and plan 1. COPD exacerbation: 2. Basal cell carcinoma: 3. Degenerative disc disease, thoracic: 4. Obsessive behavior: 5. Neuropathy: 6. History of cigarette smokin. Diabetes mellitus with neurologic complication, with long-term current use of insulin: 8. Numbness and tingling in right hand: 9. Lumbar post-laminectomy syndrome: 10. Thoracic compression fracture: 11. History of myocardial infarction: 12. CAD (coronary artery disease): 13. Hyperlipidemia, unspecified: Plan: Beatrice Gaytan is a 64 year old female with a past medical history of type 2 diabetes mellitus, hypertension, hyperlipidemia, CAD, intolerance to aspirin Plavix?, History of stenting? Who presents [facility] for chest pain. Stress echo showed reversible perfusion defect and cardiology consulted for further management The patient is not taking any blood thinners such as aspirin or Plavix due to some concerns of bleeding in the past. - The patient was offered Plavix/blood thinners however the patient deferred due to her history of bleeding -Continue on metoprolol continue statins and fenofibrate for hyperlipidemia - Follow-up with cardiology for further recommendations for positive stress test - Lovenox for DVT prophylaxis - Moderate dose sliding scale for diabetes - Continue on lisinopril for her hypertension - Continue prednisone and albuterol for COPD exacerbation tightness -Adequate counseling regarding smoking cessation was provided -Monitor for any chest pain or shortness of breath symptoms and to proceed with troponins and serial EKGs. - Adequate analgesia for any pain management related to back pain PDMP PDMP Reviewed: Not Reviewed Attestations 2 Medical Necessity Statement*: The patient will stay more than 2 days in the hospital for her management Coding Level of Care Code 72435 Diagnoses COPD exacerbation J44.1 Basal cell carcinoma C44.91 Degenerative disc disease, thoracic M51.34 Obsessive behavior R46.81 Neuropathy G62.9 History of cigarette smoking Z87.891 Diabetes mellitus with neurologic complication, with long-term current use of insulin E11.49; Z79.4 Numbness and tingling in right hand R20.0; R20.2 Lumbar post-laminectomy syndrome M96.1 Thoracic compression fracture S22.000A History of myocardial infarction I25.2 CAD (coronary artery disease) I25.10 Hyperlipidemia, unspecified E78.5
[2025-06-16] MEDS: efferdent effervescent 1 EACH DENTAL (22:07)
--- NOTE | 2025-06-16 23:17 | NMCV_ITS ---
NM riddhi perf SPECT r/s* [id number] Beatrice Gaytan Age: 64 Gender: F : 1960 Exam Date: 06/16/2025 06:50 Ordering Phys: Kyle Souza MD Technologist: MARION Hollis Exam Location: [facility] Indications: cp STRESS TEST Please see separate stress test report in [facility] for full findings IMAGE PROTOCOL Rest/Stress 1 Lexiscan Day Radiopharmaceutical Dose (mCi) Administration Site Administered by Rest: Tc-99m 11 IV MARION Starks Sestamibi Stress:Tc-99m 33 IV MARION Starks Sestamibi Rest: 16-Jun-2025 60 Discovery 630 Stress: 16-Jun-2025 30 Discovery 630 0.4mg Lexiscan. Images obtained in supine and prone position. SPECT RESULTS Technical Quality: Good Raw Data Analysis: Soft tissue attenuation,, Breast attenuation Image Corrections: No attenuation or motion correction applied Summed Stress Score: 5 Summed Rest Score: 0 Summed Difference Score: 5 PERFUSION FINDINGS Moderate area of minimal to moderately decreased tracer uptake involving the basal and mid inferolateral, mid anterolateral and mid anterior segments. Reversibility was noted in all these areas at rest. FUNCTIONAL RESULTS (calculated via Gated SPECT) Stress Image LV EF (%): 67 Stress EDV (mL):107 TID: 0.98 Stress ESV (mL):35 FUNCTIONAL FINDINGS: Segmental wall motion analysis revealing no gross wall motion abnormalities IMPRESSIONS 1. Myocardial perfusion imaging revealing moderate area of minimal to moderately decreased tracer uptake involving the inferolateral, anterolateral and anterior regions with significant reversibility suggesting myocardial ischemia in the distribution of the left circumflex artery/Left anterior descending artery 2. Normal LV ejection fraction of 67%. 3. LV wall motion analysis revealing no gross wall motion abnormalities. 4. Normal LV volume Compared to the study from 04/20/2020, the ischemic burden has slightly increased Dr Eddie Lopez MD FACC (Electronically Signed) Final Date: 16 June 2025 12:38 S
[2025-06-17] VITALS (14 sets, daily range): BP systolic 118–152; BP diastolic 58–83; PULSE 61–100; RESP 16–20; TEMP 36.2–37; O2SAT 91–97
[2025-06-17 04:14] LABS: Hematocrit 42.9 % (36-47); Hemoglobin 14.00 g/dL (11.27-16.99); Mean Corpuscular HGB Conc 32.6 g/dL (30-55); Mean Corpuscular Hemoglobin 30.3 pg (27-33); Mean Corpuscular Volume 92.9 fl (85-98); Nucleated Red Blood Cells % 0 %; Platelet Count 276 10^3/cmm (157-399); Red Blood Count 4.62 10^6/uL (3.85-5.65); White Blood Count 9.96 10^3/uL (3.29-11.43)
[2025-06-17 04:40] LABS: Alanine Aminotransferase 15 U/L (0-33); Albumin Level 3.7 g/dL (3.5-5.2); Alkaline Phosphatase 48 U/L (35-105); Anion Gap 17.0 (5-19); Aspartate Amino Transferase 18 U/L (0-32); Blood Urea Nitrogen 18 mg/dL (8-23); Calcium 8.7 mg/dL (8.5-10.5); Carbon Dioxide 24 mmol/L (22-29); Chloride 105 mmol/L (98-107); Creatinine Clr Calc Pharmacy 68.6761; Globulin 3.7 g/dL (1.3-4.6); Glucose 163 mg/dL (65-115); Osmolality Calculated 299 mOsm/kg (285-295); Potassium 4.0 mmol/L (3.5-5.1); Sodium 142 mmol/L (136-145); Total Protein 7.4 g/dL (6.6-8.7)
--- NOTE | 2025-06-17 07:29 | PC.NURSE ---
Patient was coughing a lot this AM. Notified Dr. Souza and received orders for tessalon pearles 100 mg TID PRN.
--- NOTE | 2025-06-17 08:59 | P.PN_ITS ---
Subjective 2 Subjective: The patient is a complaining of exertional chest tightness/heaviness and dyspnea on exertion. Vital seems to be stable Has been refusing Lovenox during that she cannot take any blood thinning medicine Medications: Medication Review Details: Current Medications Acetaminophen (Acetaminophen 325 Mg Tablet) 650 mg PO Q6H PRN PRN Reason: Mild/Mod Pain Or Temp >/= 101 Last Admin: 06/16/25 16:11 Dose: 650 mg Albuterol/Ipratropium (Ipratropium-Albuterol 3 Ml Neb) 3 ml INHALATION Q6H.RESP CHAZ Last Admin: 06/17/25 07:37 Dose: 3 ml Amlodipine Besylate (Amlodipine 10 Mg Tablet) 10 mg PO Q24H [facility] Last Admin: 06/17/25 01:33 Dose: 10 mg Atorvastatin Calcium (Atorvastatin 40 Mg Tablet) 40 mg PO BEDTIME [facility] Last Admin: 06/16/25 21:17 Dose: 40 mg Benzonatate (Benzonatate 100 Mg Capsule) 100 mg PO TID PRN PRN Reason: COUGH Last Admin: 06/17/25 06:38 Dose: 100 mg Denture Adhesive (Efferdent Effervescent) 1 each DENTAL PRN PRN PRN Reason: DISINFECTION Last Admin: 06/16/25 22:07 Dose: 1 each Enoxaparin Sodium (Enoxaparin 40 Mg/0.4 Ml Syringe) 40 mg SUBCUT Q24H [facility] Last Admin: 06/16/25 06:43 Dose: Not Given Fenofibrate (Fenofibrate 48 Mg Tablet) 48 mg PO DAILY [facility] Last Admin: 06/16/25 09:16 Dose: 48 mg Glucagon (Glucagon 1 Mg/Ml Kit 1 Ml) 1 mg IM ONCE PRN; Protocol PRN Reason: Adult Acute Hypoglycemia Nursing Prot. Dextrose (D5w) 500 mls @ 0 mls/hr IV ONCE PRN; Protocol PRN Reason: Adult Acute Hypoglycemia Prot Dextrose (D10w) 125 mls @ 750 mls/hr IV PRN PRN; Protocol PRN Reason: Adult Acute Hypoglycemia Nursing Protocol Dextrose (D10w) 250 mls @ 1,000 mls/hr IV PRN PRN; Protocol PRN Reason: Adult Acute Hypoglycemia Nursing Protocol Insulin Human Lispro (Insulin Lispro 100 Unit/1 Ml) 0 unit SUBCUT WM&BEDTIME CHAZ; Protocol Last Admin: 06/16/25 21:17 Dose: 6 unit Lisinopril (Lisinopril 20 Mg Tablet) 20 mg PO BID [facility] Last Admin: 06/16/25 17:47 Dose: 20 mg Metoprolol Tartrate (Metoprolol Tartrate 50 Mg Tablet) 100 mg PO BID [facility] Last Admin: 06/16/25 17:48 Dose: 100 mg Morphine Sulfate (Morphine 4 Mg/Ml Sdv 1 Ml) 2 mg IVP Q4H PRN PRN Reason: SEVERE PAIN Last Admin: 06/16/25 22:07 Dose: 2 mg Ondansetron HCl (Ondansetron 2 Mg/Ml Sdv 2 Ml) 4 mg IVP Q8H PRN PRN Reason: vomiting, or N/V if npo Ondansetron HCl (Ondansetron 2 Mg/Ml Sdv 2 Ml) 4 mg IVP Q2M PRN PRN Reason: NAUSEA Pantoprazole Sodium (Pantoprazole 40 Mg Sdv) 40 mg IVP Q12H [facility] Last Admin: 06/16/25 22:56 Dose: Not Given Prednisone (Prednisone 20 Mg Tablet) 40 mg PO BEDTIME [facility] Last Admin: 06/16/25 20:29 Dose: Not Given Sucralfate (Sucralfate 1 Gm/10 Ml Oral Liq Udc) 1 gm PO Q6H [facility] Last Admin: 06/17/25 05:35 Dose: Not Given Trazodone HCl (Trazodone 150 Mg Tablet) 300 mg PO BEDTIME [facility] Last Admin: 06/16/25 21:17 Dose: 300 mg Vitals/I&O/Wt Last Vital Signs Temp 97.1 F L 06/17/25 07:49 Pulse 66 06/17/25 07:54 Resp 18 06/17/25 07:49 BP 136/58 06/17/25 07:49 Pulse Ox 92 06/17/25 07:49 O2 Del Method Room Air 06/17/25 07:49 06/16/25 06/17/25 06/17/25 22:59 06:59 14:59 Intake Total 240 / 960 Balance 240 / 960 Weight last 48 hrs Weight 239 lb Weight 242 lb 2 oz Weight 240 lb Physical Exam 2 Narrative: GENERAL: The patient is alert and oriented times three. Not in any acute distress. Moderate obesity HEENT: No significant pallor, icterus or lymphadenopathy.Oral cavity: There are no mucous membrane lesions. NECK: Trachea appears to be central. No masses noted. No JVD or thyromegaly appreciated. RESPIRATORY: Chest is symmetrical. No intercostals muscle retraction or any accessory muscle activation. There is no chest wall tenderness. Breath sounds are heard bilaterally. No rales or rhonchi heard. No evidence of any consolidation. BREASTS: Deferred. HEART: The heart sounds are normal. No S3 or S4. No significant murmurs. No pericardial rub ABDOMEN: No vessel pulsations or distention. No tenderness. No organomegaly appreciated. Bowel sounds are normally heard. : Deferred. RECTAL: Deferred. LYMPHATIC: No lymphadenopathy noted in the neck. EXTREMITIES: The peripheral pulses are palpable bilaterally, slightly weak. MUSCULOSKELETAL: No acute joint deformities or swelling SKIN: There are no significant rashes or ecchymosis NEUROPSYCHIATRIC: The patient is alert and oriented x3. Appears to be in a good mood. No tremors or rigidity noted. Data 06/17/25 03:49 06/17/25 03:49 A&P Assessment and plan 1. Abnormal nuclear stress test: The stress test is suggestive of ischemia in the distribution of the Left anterior descending artery and circumflex artery. Possibility of restenosis of the intervening lesion in the LAD/progression of disease in the other regions are considerations. For further evaluation of the patient's coronary status, she requires a cardiac catheterization. 2. Bleeding disorder: I reviewed the patient's medical records especially from 2013 and 2014. She had the initial PCI in May 2014,. She was given heparin and Plavix at that time. The second PCI was in October 2015. This time also, she had Plavix and heparin. There was no documentation of bleeding at that time. Had a long discussion with her . Has been suggesting that the bleeding started after several months of taking the Plavix. 3. Atherosclerosis of [place] coronary artery of [place] heart with unstable angina pectoris: This patient had a PCI of the LAD and the right coronary artery in the past. She had a moderate disease in the circumflex artery with the last angiogram. Possibility of progression of the disease in this vessel and possible restenosis of the LAD lesion are considerations. In order to further evaluate the coronary status, she requires a cardiac catheterization. 4. Mixed hyperlipidemia: Continue on the current medications. 5. Benign essential hypertension with target blood pressure below 140/90: Blood pressure is elevated. Need to optimize antihypertensive medications. The blood pressure seems to be getting under control 6. Type 2 diabetes mellitus with diabetic polyneuropathy, with long-term current use of insulin: The blood sugar seems to be fairly under control. 7. History of cigarette smoking: Patient is known to have COPD. She uses bronchodilators off and on. Plan: Other problems are Multiple drug allergies including aspirin penicillin Multiple comorbidities ? Bleeding complications with blood thinning medications I had a long discussion with the patient's this morning. According to him, her bleeding with the Plavix started after several months. He he wants to go ahead and do the PCI today. But the patient seems to think that the bleeding started soon after the blood thinning medication?. So after much discussion, a shared decision was made to give Plavix 300 mg p.o. today and subcu Lovenox of 40 mg for DVT prophylaxis. Will be watching her today in the hospital. If she has no bleeding, we may go ahead and do the cardiac catheterization and possible PCI tomorrow PDMP PDMP Reviewed: Not Reviewed Attestations 2 Medical Necessity Statement*: Patient requires continued hospital stay for close monitoring and further management Coding Level of Care Code Acute Code for Chg Fwd Diagnoses Abnormal nuclear stress test R94.39 Bleeding disorder D69.9 Atherosclerosis of [place] coronary artery of [place] heart with unstable angina pectoris I25.110 [place] vs. transplanted heart: [place] heart Mixed hyperlipidemia E78.2 Hyperlipidemia type: mixed hyperlipidemia Benign essential hypertension with target blood pressure below 140/90 I10 Type 2 diabetes mellitus with diabetic polyneuropathy, with long-term current use of insulin E11.42; Z79.4 Diabetes mellitus complication detail: with polyneuropathy Diabetes mellitus type: type 2 History of cigarette smoking Z87.891
[2025-06-17] MEDS: pantoprazole 40 mg SDV IVP ×2 (12:26→22:38)
[2025-06-17] MEDS: sucralfate 1 gm/10 mL Oral Liq UDC PO ×3 (12:26→22:38)
--- NOTE | 2025-06-17 13:35 | PC.NURSE ---
Ambulation Pt was up and walking down hallways. She started to complain of chest tightness radiating down to left arm. pain scale 6/10. BP-143/88. Nitro SL given SL. BP-147/70 after nitro, 2nd dose given, pain down to 4/10. Notified social science manager. Educated pt to just rest today and avoid over exertin during walking. Scheduled cath tomorrow at [address] Lopez. Pt and verbalizes understanding.
--- NOTE | 2025-06-17 14:40 | PM.PN ---
Subjective Subjective: The patient is a complaining of exertional chest tightness/heaviness and dyspnea on exertion. Vital seems to be stable The patient is hesitant in using blood thinners specially aspirin however we will going to proceed with a loading dose of clopidogrel. 300 mg once today with VTE prophylaxis with enoxaparin after discussion with the patient who agreed with this management and to monitor her today and possible cardiac angio tomorrow The patient understands and agrees with the plan of care Medications: Medication Review Details: Current Medications Acetaminophen (Acetaminophen 325 Mg Tablet) 650 mg PO Q6H PRN PRN Reason: Mild/Mod Pain Or Temp >/= 101 Last Admin: 06/16/25 16:11 Dose: 650 mg Albuterol/Ipratropium (Ipratropium-Albuterol 3 Ml Neb) 3 ml INHALATION Q6H.RESP [facility]AZ Last Admin: 06/17/25 07:37 Dose: 3 ml Amlodipine Besylate (Amlodipine 10 Mg Tablet) 10 mg PO Q24H [facility] Last Admin: 06/17/25 01:33 Dose: 10 mg Atorvastatin Calcium (Atorvastatin 40 Mg Tablet) 40 mg PO BEDTIME [facility] Last Admin: 06/16/25 21:17 Dose: 40 mg Benzonatate (Benzonatate 100 Mg Capsule) 100 mg PO TID PRN PRN Reason: COUGH Last Admin: 06/17/25 06:38 Dose: 100 mg Denture Adhesive (Efferdent Effervescent) 1 each DENTAL PRN PRN PRN Reason: DISINFECTION Last Admin: 06/16/25 22:07 Dose: 1 each Enoxaparin Sodium (Enoxaparin 40 Mg/0.4 Ml Syringe) 40 mg SUBCUT Q24H [facility] Last Admin: 06/16/25 06:43 Dose: Not Given Fenofibrate (Fenofibrate 48 Mg Tablet) 48 mg PO DAILY [facility] Last Admin: 06/16/25 09:16 Dose: 48 mg Glucagon (Glucagon 1 Mg/Ml Kit 1 Ml) 1 mg IM ONCE PRN; Protocol PRN Reason: Adult Acute Hypoglycemia Nursing Prot. Dextrose (D5w) 500 mls @ 0 mls/hr IV ONCE PRN; Protocol PRN Reason: Adult Acute Hypoglycemia Prot Dextrose (D10w) 125 mls @ 750 mls/hr IV PRN PRN; Protocol PRN Reason: Adult Acute Hypoglycemia Nursing Protocol Dextrose (D10w) 250 mls @ 1,000 mls/hr IV PRN PRN; Protocol PRN Reason: Adult Acute Hypoglycemia Nursing Protocol Insulin Human Lispro (Insulin Lispro 100 Unit/1 Ml) 0 unit SUBCUT WM&BEDTIME [facility]; Protocol Last Admin: 06/16/25 21:17 Dose: 6 unit Lisinopril (Lisinopril 20 Mg Tablet) 20 mg PO BID [facility] Last Admin: 06/16/25 17:47 Dose: 20 mg Metoprolol Tartrate (Metoprolol Tartrate 50 Mg Tablet) 100 mg PO BID [facility] Last Admin: 06/16/25 17:48 Dose: 100 mg Morphine Sulfate (Morphine 4 Mg/Ml Sdv 1 Ml) 2 mg IVP Q4H PRN PRN Reason: SEVERE PAIN Last Admin: 06/16/25 22:07 Dose: 2 mg Ondansetron HCl (Ondansetron 2 Mg/Ml Sdv 2 Ml) 4 mg IVP Q8H PRN PRN Reason: vomiting, or N/V if npo Ondansetron HCl (Ondansetron 2 Mg/Ml Sdv 2 Ml) 4 mg IVP Q2M PRN PRN Reason: NAUSEA Pantoprazole Sodium (Pantoprazole 40 Mg Sdv) 40 mg IVP Q12H [facility] Last Admin: 06/16/25 22:56 Dose: Not Given Prednisone (Prednisone 20 Mg Tablet) 40 mg PO BEDTIME [facility] Last Admin: 06/16/25 20:29 Dose: Not Given Sucralfate (Sucralfate 1 Gm/10 Ml Oral Liq Udc) 1 gm PO Q6H [facility] Last Admin: 06/17/25 05:35 Dose: Not Given Trazodone HCl (Trazodone 150 Mg Tablet) 300 mg PO BEDTIME [facility] Last Admin: 06/16/25 21:17 Dose: 300 mg Vitals/I&O/Wt Last Vital Signs Temp 98.0 F 06/17/25 11:43 Pulse 86 06/17/25 13:55 Resp 16 06/17/25 13:55 BP 125/64 06/17/25 11:43 Pulse Ox 93 06/17/25 13:55 O2 Del Method Room Air 06/17/25 13:55 06/16/25 06/17/25 06/17/25 22:59 06:59 14:59 Intake Total 240 / 960 476 / 476 Balance 240 / 960 476 / 476 Weight last 48 hrs Weight 108.409 kg Weight 109.826 kg Weight 108.862 kg Physical Exam Narrative: General: Alert oriented x3, patient seen was in mild distress due to chest pain and mild dyspnea HEENT: Normocephalic, atraumatic, EOMI, breathing at normal oxygen saturation on room air Cardio: Regular rate rhythm, normal S1-S2, no murmurs rubs gallops, JVD normal Respiratory: Good bilateral air entry, no wheezes no rhonchi appreciated GI: Abdomen soft, nontender, nondistended, normoactive bowel sounds present all 4 quadrants, Neuro: Cranial nerves II to XII intact, strength 5/5, sensation 5/5, no gross neurological deficit Behavior: Appropriate and cooperative Extremities: Mild trace pedal edema and normal pulses Skin: Visible skin intact, no rashes Data 06/17/25 03:49 06/17/25 03:49 A&P Assessment and plan 1. Abnormal nuclear stress test: 2. CAD (coronary artery disease): 3. COPD exacerbation: 4. Type 2 diabetes mellitus with diabetic polyneuropathy, with long-term current use of insulin: 5. Degenerative disc disease, thoracic: 6. Mixed hyperlipidemia: 7. Lumbar post-laminectomy syndrome: 8. Neuropathy: 9. History of cigarette smoking: Plan: Beatrice Gaytan is a 64 year old female with a past medical history of type 2 diabetes mellitus, hypertension, hyperlipidemia, CAD, intolerance to aspirin Plavix?, History of stenting? Who presents [facility] for chest pain. Stress echo showed reversible perfusion defect and cardiology consulted for further management The patient is not taking any blood thinners such as aspirin or Plavix due to some concerns of bleeding in the past. - The patient was offered Plavix/blood thinners however the patient deferred due to her history of bleeding -Continue on metoprolol continue statins and fenofibrate for hyperlipidemia - Clopidogrel 300 mg stat today and to monitor, for possible cardiac catheter tomorrow -Metoprolol 100 mg twice daily for heart rate control -Nitrates sublingual as needed for the chest pain -Atorvastatin 40 mg daily. - Lovenox for DVT prophylaxis - Moderate dose sliding scale for diabetes - Continue on amlodipine 10 mg, lisinopril 20 mg, for her hypertension - Continue prednisone and albuterol for COPD exacerbation tightness -Adequate counseling regarding smoking cessation was provided -Monitor for any chest pain or shortness of breath symptoms and to proceed with troponins and serial EKGs. - Adequate analgesia for any pain management related to back pain PDMP PDMP Reviewed: Not Reviewed Attestations Medical Necessity Statement*: The patient will stay for the management of her unstable angina Time Spent in Patient Care: Greater than 35 minutes (>than 50% of time spent in counselling and/or direct pt care on unit). Critical Care Time: Critical Care Time (min): 50 Other Attestations: This documentation was created by [employer] student loan counselor software. Every effort was made to ensure accuracy of student loan counselor.? Any obvious errors or omissions should be clarified with the author of the document. Coding Level of Care Code 01985 Diagnoses Abnormal nuclear stress test R94.39 CAD (coronary artery disease) I25.10 COPD exacerbation J44.1 Type 2 diabetes mellitus with diabetic polyneuropathy, with long-term current use of insulin E11.42; Z79.4 Diabetes mellitus type: type 2 Diabetes mellitus complication detail: with polyneuropathy Degenerative disc disease, thoracic M51.34 Mixed hyperlipidemia E78.2 Hyperlipidemia type: mixed hyperlipidemia Lumbar post-laminectomy syndrome M96.1 Neuropathy G62.9 History of cigarette smoking Z87.891
[2025-06-17] MEDS: insulin glargine 100 units/1 mL 20 UNIT SUBCUT (16:24)
[2025-06-18] VITALS (27 sets, daily range): BP systolic 126–172; BP diastolic 9–108; PULSE 62–88; RESP 13–22; TEMP 36.6–37.1; O2SAT 92–96
[2025-06-18 03:19] LABS: Hematocrit 39.8 % (36-47); Hemoglobin 13.20 g/dL (11.27-16.99); Mean Corpuscular HGB Conc 33.2 g/dL (30-55); Mean Corpuscular Hemoglobin 31.0 pg (27-33); Mean Corpuscular Volume 93.4 fl (85-98); Nucleated Red Blood Cells % 0 %; Platelet Count 245 10^3/cmm (157-399); Red Blood Count 4.26 10^6/uL (3.85-5.65); White Blood Count 8.44 10^3/uL (3.29-11.43)
[2025-06-18 03:46] LABS: Alanine Aminotransferase 12 U/L (0-33); Albumin Level 3.6 g/dL (3.5-5.2); Alkaline Phosphatase 44 U/L (35-105); Anion Gap 13.9 (5-19); Aspartate Amino Transferase 14 U/L (0-32); Blood Urea Nitrogen 16 mg/dL (8-23); Calcium 8.3 mg/dL (8.5-10.5); Carbon Dioxide 24 mmol/L (22-29); Chloride 108 mmol/L (98-107); Creatinine Clr Calc Pharmacy 76.3068; Globulin 3.1 g/dL (1.3-4.6); Glucose 181 mg/dL (65-115); Osmolality Calculated 300 mOsm/kg (285-295); Potassium 3.9 mmol/L (3.5-5.1); Sodium 142 mmol/L (136-145); Total Protein 6.7 g/dL (6.6-8.7)
--- NOTE | 2025-06-18 08:19 | PC.NURSE ---
to cardiac laborer chemical processing at this time
--- NOTE | 2025-06-18 08:38 | W.PM.OPSUD ---
Surgery/Procedure H&P Update DATE OF PROCEDURE: June 18, 2025 DATE H&P PERFORMED: 06/16/25 H&P UPDATE INFORMATION: I have reviewed H&P completed within last 30 days, I have examined patient prior to procedure and No changes to prior documentation PREOP DIAGNOSIS: ASHD PRIMARY INDICATION FOR PROCEDURE: Chest pain, abnormal stress test, previous PCI PLANNED PROCEDURE: Operation Date: 06/18/25 08:30 Proposed Procedures p Cardiac Catheterization(Left) - Eddie Lopez MD PATIENT REASSESSED PRIOR TO SEDATION, WITH NO CHANGE NOTED: Yes PHYSICAL EXAM: alert, oriented x 3, clear to auscultation bilaterally and regular rate & rhythm AIRWAY EVAL/ANESTHESIA PLAN: normal airway, see other exam findings, ASA III, Monitored Anesthesia, Local Anesthesia, Risks, benefits & alternatives of sedation and/or procedure discussed and Patient agrees to continue as planned
--- NOTE | 2025-06-18 09:29 | PM.OP ---
Operative Report Date of procedure: June 18, 2025 Surgeon: Eddie Lopez MD Procedure: This patient underwent left heart catheterization with left and right coronary angiogram and LV angiogram today through the right femoral artery in the groin. She tolerated the procedure well and with no complication She was found to have moderate disease in the LAD at the takeoff of the first diagonal branch. She had a normal circumflex artery taking off from near to the ostium of the right coronary artery and was found to have moderate diffuse disease proximally. The right coronary artery is a medium to large caliber dominant vessel. The PLV branch was found to have a high-grade lesion proximally. PDA branch was found to have minimal intimal irregularities. Based on the angiogram findings, it was thought to be appropriate to consider PCI of the PLV lesion. Reviewed and discussed the cardiac catheterization data with Dr. Martini. concurred with this plan and took over further management of this patient at this point
--- NOTE | 2025-06-18 09:54 | PM.PROC ---
Procedure Note: Date of procedure: 06/18/25 Pre-procedure diagnosis: Unstable angina Procedure: Left heart cath was performed: Please see for diagnostic Dr. Lopez note. High-grade mid RV branch stenosis, it is a moderate size and caliber coronary artery. PCI to mid RV branch, lesion was pre and postdilated with balloon angioplasty. 2.5 x 15 mm stent drug-eluting was placed. It was postdilated with 3.0 x 12 mm noncompliant balloon. Excellent angiographic result was achieved. Plan: Patient was discussed in detail she does not have true aspirin allergy. She only says that she had in the past nosebleed however since she has a drug-eluting stent I will prefer aspirin. Please load patient with 325 mg of aspirin. Continue dual antiplatelet therapy with 75 mg of Plavix. She was already loaded with Plavix. She will be taking aspirin and Plavix for at least 1 year. She can use [place] nasal spray to moisturize nostril which will reduce chance of bleeding. Right common femoral artery sheath in place: Check PTT in 2 hours, if less than 45 pull out the sheath. Patient will be having bedrest for 5 hours after pulling out the sheath. Full note to be dictated Coding Level of Care Code Acute Code for Chg Fwd
[2025-06-18] MEDS: pantoprazole 40 mg SDV IVP (10:17)
--- NOTE | 2025-06-18 10:34 | PC.NURSE ---
received from cardiac cath via bed at 1010.report received.pt is awake and alert and oriented x 4.denies pain at present.sr on monitor.right femoral sheath intact to pressurized system.drsg is dry and intact.no hematoma noted.right leg is warm to touch and with brisk capillary refill.palpable dp pulse noted.pt instructed in activity restrictions s/p femoral artery procedure...and instructed to notify staff for any bleeding,pain,sob,numbness or for any concerns at all.pt verb understanding of instructions
--- NOTE | 2025-06-18 11:26 | P.PN_ITS ---
Subjective 2 Subjective: The patient underwent PCI through right femoral access today. The patient was not seen in the morning and later reviewed and seen. Doing well no acute issues and feeling better from the day of admission. Vitals/I&O/Wt Last Vital Signs Temp 98.2 F 06/19/25 07:54 Pulse 77 06/19/25 07:54 Resp 23 H 06/19/25 07:54 BP 110/64 06/19/25 07:54 Pulse Ox 96 06/19/25 07:54 O2 Del Method Room Air 06/19/25 07:49 06/18/25 06/19/25 06/19/25 22:59 06:59 14:59 Intake Total 2720 / 2720 100 / 2820 480 / 480 Balance 2720 / 2720 100 / 2820 480 / 480 Weight last 48 hrs Weight 108.681 kg Physical Exam 2 Narrative: General: Alert oriented x3, patient sitting comfortably without any distress on room air HEENT: Normocephalic, atraumatic, EOMI, breathing at normal oxygen saturation on room air Cardio: Regular rate rhythm, normal S1-S2, no murmurs rubs gallops, JVD normal Respiratory: Good bilateral air entry, without any wheezes or any other added sounds GI: Abdomen soft, nontender, nondistended, normoactive bowel sounds present all 4 quadrants, Neuro: Cranial nerves II to XII intact, strength 5/5, sensation 5/5, no gross neurological deficit Behavior: Appropriate and cooperative Extremities: Mild trace pedal edema, peripheral pulses palpable with good volume, right femoral access used for PCI, hematoma or any discoloration appreciated at the access site Skin: Mild bruising on both arms, near the needle prick areas but no swelling or discharge and no tender Data 06/19/25 05:07 06/19/25 05:07 A&P Assessment and plan 1. Abnormal nuclear stress test: 2. CAD (coronary artery disease): 3. COPD exacerbation: 4. Type 2 diabetes mellitus with diabetic polyneuropathy, with long-term current use of insulin: 5. Degenerative disc disease, thoracic: 6. Mixed hyperlipidemia: 7. Lumbar post-laminectomy syndrome: 8. Neuropathy: 9. History of cigarette smoking: Plan: Beatrice Gaytan is a 64 year old female with a past medical history of type 2 diabetes mellitus, hypertension, hyperlipidemia, CAD, intolerance to aspirin Plavix?, History of stenting? Who presents [facility] for chest pain. Stress echo showed reversible perfusion defect and cardiology consulted for further management The patient is not taking any blood thinners such as aspirin or Plavix due to some concerns of bleeding in the past. - Patient s/p PCI, to mid RV branch. Stable no acute concerns. Underwent procedures and hospital course without complications -Continue on aspirin and Plavix for minimum 6 months and to follow-up with the cardiology as outpatient within 1 week the nurse practitioners in [address] Lopez - Continue on high-dose statin 40 mg daily -Sublingual nitrates as needed for chest pain - Continue amlodipine 10 mg, lisinopril 20 mg for hypertension control - Adequate counseling provided for smoking cessation - Continue metoprolol 100 mg twice daily for heart rate control - DVT prophylaxis: Enoxaparin - Continue observe post PCI 24 hours and for discharge possible tomorrow. The patient has been informed about his current condition further management of plan and agreed with the plan of care without any language barrier. PDMP PDMP Reviewed: Not Reviewed Attestations 2 Medical Necessity Statement*: The patient will need overnight observation for safe discharge tomorrow after cardiac recommendations Time Spent in Patient Care: Greater than 35 minutes (>than 50% of time spent in counselling and/or direct pt care on unit) . Other Attestations: This documentation was created by [employer] enterprise project manager software. Every effort was made to ensure accuracy of enterprise project manager.? Any obvious errors or omissions should be clarified with the author of the document. Coding Level of Care Code 24358 Diagnoses Abnormal nuclear stress test R94.39 CAD (coronary artery disease) I25.10 COPD exacerbation J44.1 Type 2 diabetes mellitus with diabetic polyneuropathy, with long-term current use of insulin E11.42; Z79.4 Diabetes mellitus type: type 2 Diabetes mellitus complication detail: with polyneuropathy Degenerative disc disease, thoracic M51.34 Mixed hyperlipidemia E78.2 Hyperlipidemia type: mixed hyperlipidemia Lumbar post-laminectomy syndrome M96.1 Neuropathy G62.9 History of cigarette smoking Z87.891
[2025-06-18] MEDS: sucralfate 1 gm/10 mL Oral Liq UDC PO ×2 (11:52→16:55)
[2025-06-18 13:47] LABS: Partial Thromboplastin Time 48.8 SECONDS (23.9-36.7)
--- NOTE | 2025-06-18 14:55 | PC.NURSE ---
right femoral arterial sheath dc'd at 1425.pressure held x 20 min.vss through-out procedure.right leg remained warm to touch and with brisk capillary refill.palpable dp pulse noted.no hematoma formation noted.site dressed with 2x2 gauze and secured with biocclusive drsg.pt instructed in activity restrictions s/p arterial sheath removal and instructed to notify staff for any bleeing,pain,numbness,sob..or for any concerns at all.pt verb understanding of instructions
--- NOTE | 2025-06-18 20:01 | PM.PN ---
Subjective Subjective: The patient went for PCI in the morning. And was not seen. As per the notes underwent procedure without complications and vital paula currently stable Medications: Medication Review Details: Current Medications Acetaminophen (Acetaminophen 325 Mg Tablet) 650 mg PO Q6H PRN PRN Reason: Mild/Mod Pain Or Temp >/= 101 Last Admin: 06/16/25 16:11 Dose: 650 mg Albuterol/Ipratropium (Ipratropium-Albuterol 3 Ml Neb) 3 ml INHALATION Q6H.RESP CHAZ Last Admin: 06/17/25 07:37 Dose: 3 ml Amlodipine Besylate (Amlodipine 10 Mg Tablet) 10 mg PO Q24H CHAZ Last Admin: 06/17/25 01:33 Dose: 10 mg Atorvastatin Calcium (Atorvastatin 40 Mg Tablet) 40 mg PO BEDTIME CHAZ Last Admin: 06/16/25 21:17 Dose: 40 mg Benzonatate (Benzonatate 100 Mg Capsule) 100 mg PO TID PRN PRN Reason: COUGH Last Admin: 06/17/25 06:38 Dose: 100 mg Denture Adhesive (Efferdent Effervescent) 1 each DENTAL PRN PRN PRN Reason: DISINFECTION Last Admin: 06/16/25 22:07 Dose: 1 each Enoxaparin Sodium (Enoxaparin 40 Mg/0.4 Ml Syringe) 40 mg SUBCUT Q24H CHAZ Last Admin: 06/16/25 06:43 Dose: Not Given Fenofibrate (Fenofibrate 48 Mg Tablet) 48 mg PO DAILY CHAZ Last Admin: 06/16/25 09:16 Dose: 48 mg Glucagon (Glucagon 1 Mg/Ml Kit 1 Ml) 1 mg IM ONCE PRN; Protocol PRN Reason: Adult Acute Hypoglycemia Nursing Prot. Dextrose (D5w) 500 mls @ 0 mls/hr IV ONCE PRN; Protocol PRN Reason: Adult Acute Hypoglycemia Prot Dextrose (D10w) 125 mls @ 750 mls/hr IV PRN PRN; Protocol PRN Reason: Adult Acute Hypoglycemia Nursing Protocol Dextrose (D10w) 250 mls @ 1,000 mls/hr IV PRN PRN; Protocol PRN Reason: Adult Acute Hypoglycemia Nursing Protocol Insulin Human Lispro (Insulin Lispro 100 Unit/1 Ml) 0 unit SUBCUT WM&BEDTIME CHAZ; Protocol Last Admin: 06/16/25 21:17 Dose: 6 unit Lisinopril (Lisinopril 20 Mg Tablet) 20 mg PO BID [facility]LY [facility], [facility]1983 Last Admin: 06/16/25 17:47 Dose: 20 mg Metoprolol Tartrate (Metoprolol Tartrate 50 Mg Tablet) 100 mg PO BID [facility], [facility]1983 Last Admin: 06/16/25 17:48 Dose: 100 mg Morphine Sulfate (Morphine 4 Mg/Ml Sdv 1 Ml) 2 mg IVP Q4H PRN PRN Reason: SEVERE PAIN Last Admin: 06/16/25 22:07 Dose: 2 mg Ondansetron HCl (Ondansetron 2 Mg/Ml Sdv 2 Ml) 4 mg IVP Q8H PRN PRN Reason: vomiting, or N/V if npo Ondansetron HCl (Ondansetron 2 Mg/Ml Sdv 2 Ml) 4 mg IVP Q2M PRN PRN Reason: NAUSEA Pantoprazole Sodium (Pantoprazole 40 Mg Sdv) 40 mg IVP Q12H FOR[facility], [facility] Last Admin: 06/16/25 22:56 Dose: Not Given Prednisone (Prednisone 20 Mg Tablet) 40 mg PO BEDTIME [facility], [facility] Last Admin: 06/16/25 20:29 Dose: Not Given Sucralfate (Sucralfate 1 Gm/10 Ml Oral Liq Udc) 1 gm PO Q6H [facility], [facility] Last Admin: 06/17/25 05:35 Dose: Not Given Trazodone HCl (Trazodone 150 Mg Tablet) 300 mg PO BEDTIME [facility] Last Admin: 06/16/25 21:17 Dose: 300 mg Vitals/I&O/Wt Last Vital Signs Temp 97.9 F 06/18/25 19:09 Pulse 72 06/18/25 19:09 Resp 18 06/18/25 19:09 BP 139/85 06/18/25 19:09 Pulse Ox 95 06/18/25 19:09 O2 Del Method Room Air 06/18/25 19:09 06/18/25 06/18/25 06/18/25 06:59 14:59 22:59 Intake Total 1240 / 1240 Balance 1240 / 1240 Physical Exam Narrative: General: Alert oriented x3, patient seen was in mild distress due to chest pain and mild dyspnea HEENT: Normocephalic, atraumatic, EOMI, breathing at normal oxygen saturation on room air Cardio: Regular rate rhythm, normal S1-S2, no murmurs rubs gallops, JVD normal Respiratory: Good bilateral air entry, no wheezes no rhonchi appreciated GI: Abdomen soft, nontender, nondistended, normoactive bowel sounds present all 4 quadrants, Neuro: Cranial nerves II to XII intact, strength 5/5, sensation 5/5, no gross neurological deficit Behavior: Appropriate and cooperative Extremities: Mild trace pedal edema and normal pulses Skin: Visible skin intact, no rashes Data 06/18/25 02:56 06/18/25 02:56 A&P Assessment and plan 1. Abnormal nuclear stress test: 2. CAD (coronary artery disease): 3. COPD exacerbation: 4. Type 2 diabetes mellitus with diabetic polyneuropathy, with long-term current use of insulin: 5. Degenerative disc disease, thoracic: 6. Mixed hyperlipidemia: 7. Lumbar post-laminectomy syndrome: 8. Neuropathy: 9. History of cigarette smoking: Plan: Beatrice Gaytan is a 64 year old female with a past medical history of type 2 diabetes mellitus, hypertension, hyperlipidemia, CAD, intolerance to aspirin Plavix?, History of stenting? Who presents [facility] for chest pain. Stress echo showed reversible perfusion defect and underwent PCI - Patient received stenting to mid RV branch without any complications - The patient to continue on aspirin and clopidogrel as per cardiology plan -Metoprolol 100 mg twice daily for better heart rate control -Atorvastatin and fenofibrate's to continue -Amlodipine 10 mg, lisinopril 20 mg to continue for high blood pressure -Albuterol nebulizations for COPD -Insulin glargine 20 units(with reduced dose from her home dose which is 40 units) and sliding scale to continue with monitoring of the blood glucose with target less than 180 and avoid hypoglycemia -Nitroglycerin as needed for chest pain - Adequate analgesia for any pain management related to back pain PDMP PDMP Reviewed: Not Reviewed Attestations Medical Necessity Statement*: The patient will stay to be monitored post PCI Time Spent in Patient Care: 45 Coding Level of Care Code Acute Code for Chg Fwd Diagnoses Abnormal nuclear stress test R94.39 CAD (coronary artery disease) I25.10 COPD exacerbation J44.1 Type 2 diabetes mellitus with diabetic polyneuropathy, with long-term current use of insulin E11.42; Z79.4 Diabetes mellitus type: type 2 Diabetes mellitus complication detail: with polyneuropathy Degenerative disc disease, thoracic M51.34 Mixed hyperlipidemia E78.2 Hyperlipidemia type: mixed hyperlipidemia Lumbar post-laminectomy syndrome M96.1 Neuropathy G62.9 History of cigarette smoking Z87.891
--- NOTE | 2025-06-18 20:41 | PC.NURSE ---
patient prefers dexcom. nurse has approved.
[2025-06-18] MEDS: insulin glargine 100 units/1 mL 20 UNIT SUBCUT (21:11)
[2025-06-19] VITALS: BP 155/66; PULSE 70; RESP 18; TEMP 37.1; O2SAT 96
[2025-06-19] MEDS: pantoprazole 40 mg SDV IVP (00:42)
[2025-06-19] MEDS: sucralfate 1 gm/10 mL Oral Liq UDC PO ×2 (00:42→12:04)
[2025-06-19 02:06] VITALS: O2SAT 96
[2025-06-19 04:00] VITALS: BP 129/64; PULSE 69; RESP 20; TEMP 36.6; O2SAT 95
[2025-06-19 04:12] VITALS: PULSE 70
[2025-06-19 05:22] LABS: Hematocrit 40.7 % (36-47); Hemoglobin 13.30 g/dL (11.27-16.99); Mean Corpuscular HGB Conc 32.7 g/dL (30-55); Mean Corpuscular Hemoglobin 30.3 pg (27-33); Mean Corpuscular Volume 92.7 fl (85-98); Nucleated Red Blood Cells % 0 %; Platelet Count 262 10^3/cmm (157-399); Red Blood Count 4.39 10^6/uL (3.85-5.65); White Blood Count 9.02 10^3/uL (3.29-11.43)
[2025-06-19 05:44] LABS: Alanine Aminotransferase 13 U/L (0-33); Albumin Level 3.6 g/dL (3.5-5.2); Alkaline Phosphatase 45 U/L (35-105); Anion Gap 15.1 (5-19); Aspartate Amino Transferase 14 U/L (0-32); Blood Urea Nitrogen 18 mg/dL (8-23); Calcium 8.6 mg/dL (8.5-10.5); Carbon Dioxide 24 mmol/L (22-29); Chloride 107 mmol/L (98-107); Creatinine Clr Calc Pharmacy 62.5204; Globulin 3.4 g/dL (1.3-4.6); Glucose 179 mg/dL (65-115); Osmolality Calculated 300 mOsm/kg (285-295); Potassium 4.1 mmol/L (3.5-5.1); Sodium 142 mmol/L (136-145); Total Protein 7.0 g/dL (6.6-8.7)
[2025-06-19 07:54] VITALS: BP 110/64; PULSE 77; RESP 23; TEMP 36.8; O2SAT 96
--- NOTE | 2025-06-19 11:15 | P.DS_ITS ---
Discharge Providers Date of Admission: 06/16/25 14:06 Date of Discharge: June 19, 2025 Attending Provider at Admission: Kyle Souza MD Attending Provider at Discharge: Silvia Williamson MD Primary Care Provider: MARTINE Pollock Diagnoses at Discharge Discharge Diagnosis 1. Abnormal nuclear stress test: 2. CAD (coronary artery disease): 3. COPD exacerbation: 4. Type 2 diabetes mellitus with diabetic polyneuropathy, with long-term current use of insulin: 5. Degenerative disc disease, thoracic: 6. Mixed hyperlipidemia: 7. Lumbar post-laminectomy syndrome: 8. Neuropathy: 9. History of cigarette smoking: Reason for Visit Reason for Visit: Chest and Back Pain\SON Brief History: Beatrice Gaytan is a 64 year old female with a past medical history of type 2 diabetes mellitus, hypertension, hyperlipidemia, CAD, intolerance to aspirin Plavix?, History of stenting? Who presents [facility] for chest pain, that was associated with exertion and mild lower limb swelling. Hospital Course Hospital Course Troponin trend was not remarkably raised however nuclear stress test was positive for reversible perfusion defect. TSH was normal. Patient had had Triglyceridemia of 169. The patient was seen by the hand straightener and based upon her perfusion defect it was decided to proceed with cath. There was concern of bleeding in the past however after thorough counseling and risk and benefit discussion with the patient by the hand straightener and the hospitalist, the patient agreed for blood thinners. She received 300 mg of loading dose of clopidogrel and DVT prophylaxis with enoxaparin was started. The patient underwent cardiac cath without any complications.The patient she received single stent to mid RV branch with good flow. 24-hour observation was uncomplicated. After discussion with the cardiology and the patient also agreed to be on dual antiplatelets aspirin and Plavix for 1 month. And then to continue clopidogrel for approximately 9-month. To follow-up with nurse practitioner's cardiology in 1 week and to follow-up with Dr. Lopez cardiology in 1 month Physical Exam Narrative: General: Alert oriented x3, patient sitting comfortably without any distress on room air HEENT: Normocephalic, atraumatic, EOMI, breathing at normal oxygen saturation on room air Cardio: Regular rate rhythm, normal S1-S2, no murmurs rubs gallops, JVD normal Respiratory: Good bilateral air entry, without any wheezes or any other added sounds GI: Abdomen soft, nontender, nondistended, normoactive bowel sounds present all 4 quadrants, Neuro: Cranial nerves II to XII intact, strength 5/5, sensation 5/5, no gross neurological deficit Behavior: Appropriate and cooperative Extremities: Mild trace pedal edema, peripheral pulses palpable with good volume, right femoral access used for PCI, hematoma or any discoloration appreciated at the access site Skin: Mild bruising on both arms, near the needle prick areas but no swelling or discharge and no tender Discharge Data Studies Completed and Pending Completed Studies During Hospitalization Category Date Time Status Sestamibi Stress Test Request Routine Exams 06/15/25 23:17 Draft XR chest 1V portable [id number] Stat Exams 06/15/25 17:58 Completed NM riddhi perf SPECT r/s* [id number] Routine Nuc Med 06/16/25 23:17 Completed CV. echo complete* [id number] Stat Ultrasound 06/15/25 21:53 Completed Pending at discharge Category Date Time Status CULINARY INTERN request for service Routine Exams 06/18/25 08:00 Taken Radiology Impressions Chest X-Ray 06/15/25 17:58 IMPRESSION: No definite acute findings. Laboratory Results WBC 9.02 10^3/uL (3.29-11.43) 06/19/25 05:07 Corrected WBC Cancelled 06/15/25 18:56 RBC 4.39 10^6/uL (3.85-5.65) 06/19/25 05:07 Hgb 13.30 g/dL (11.27-16.99) 06/19/25 05:07 Hct 40.7 % (36-47) 06/19/25 05:07 MCV 92.7 fl (85-98) 06/19/25 05:07 MCH 30.3 pg (27-33) 06/19/25 05:07 MCHC 32.7 g/dL (30-55) 06/19/25 05:07 RDW 13.7 % (12.1-15.1) 06/19/25 05:07 Plt Count 262 10^3/cmm (157-399) 06/19/25 05:07 MPV 9.5 fL (7.4-10.4) 06/19/25 05:07 Gran % Cancelled 06/15/25 18:56 Neut % (Auto) 46.9 % 06/19/25 05:07 Lymph % (Auto) 37.1 % 06/19/25 05:07 [place] % (Auto) 10.2 % 06/19/25 05:07 Eos % (Auto) 5.0 % 06/19/25 05:07 Baso % (Auto) 0.6 % 06/19/25 05:07 Neut # (Auto) 4.23 10^3/uL (1.8-7.7) 06/19/25 05:07 Lymph # (Auto) 3.4 10^3/uL (0.8-4.8) 06/19/25 05:07 [place] # (Auto) 0.9 10^3/uL (0.2-0.9) 06/19/25 05:07 Eos # (Auto) 0.5 10^3/uL (0.0-0.8) 06/19/25 05:07 Baso # (Auto) 0.1 10^3/uL (0.0-0.1) 06/19/25 05:07 Absolute Gran (auto) Cancelled 06/15/25 18:56 Nucleated RBC % (auto) 0 % 06/19/25 05:07 Nucleated RBCs # 0.0 /100WBC 06/19/25 05:07 APTT 48.8 SECONDS (23.9-36.7) H 06/18/25 13:19 Sodium 142 mmol/L (136-145) 06/19/25 05:07 Potassium 4.1 mmol/L (3.5-5.1) 06/19/25 05:07 Chloride 107 mmol/L (98-107) 06/19/25 05:07 Carbon Dioxide 24 mmol/L (22-29) 06/19/25 05:07 Anion Gap 15.1 (5-19) 06/19/25 05:07 BUN 18 mg/dL (8-23) 06/19/25 05:07 Creatinine 1.1 mg/dL (0.5-0.9) H 06/19/25 05:07 GFR Calculation 49.8 mL/min (90-130) L 06/19/25 05:07 Glucose 179 mg/dL (65-115) H 06/19/25 05:07 POC Glucose 151 mg/dL (70-110) H 06/18/25 16:47 Estimat Average Glucose 146 06/16/25 00:53 Hemoglobin A1c 6.7 % (4.0-6.0) H 06/16/25 00:53 Calculated Osmolality 300 mOsm/kg (285-295) H 06/19/25 05:07 Calcium 8.6 mg/dL (8.5-10.5) 06/19/25 05:07 Total Bilirubin 0.4 mg/dL (0.15-1.2) 06/19/25 05:07 AST 14 U/L (0-32) 06/19/25 05:07 ALT 13 U/L (0-33) 06/19/25 05:07 Alkaline Phosphatase 45 U/L (35-105) 06/19/25 05:07 Troponin T Baseline 16 ng/L (0-10) H 06/15/25 18:56 Troponin T 120 Minute 15.32 ng/L (0-10) H 06/15/25 20:45 Delta Troponin T -0.68 ABS# (0-10) L 06/15/25 20:45 Troponin T Hi Sens 6Hr 12.36 ng/L (0-10) H 06/16/25 00:53 Troponin T Hi Sens 6Hr Delta -3.64 ng/L (0-12) L 06/16/25 00:53 NT-Pro-B Natriuret Pep 161 pg/mL (0-125) H 06/16/25 00:53 Total Protein 7.0 g/dL (6.6-8.7) 06/19/25 05:07 Albumin 3.6 g/dL (3.5-5.2) 06/19/25 05:07 Globulin 3.4 g/dL (1.3-4.6) 06/19/25 05:07 Triglycerides 169 mg/dL (0-150) H 06/16/25 00:53 Cholesterol 159 mg/dL (0-200) 06/16/25 00:53 LDL Cholesterol, Calc 87 mg/dL (50-129) 06/16/25 00:53 HDL Cholesterol 38 mg/dL (60-100) L 06/16/25 00:53 LDL/HDL Ratio 2.29 RATIO (0.00-3.22) 06/16/25 00:53 Cholesterol/HDL Ratio 4.18 mg/dL (0.0-4.40) 06/16/25 00:53 Lipase 53 U/L (13-60) 06/15/25 18:56 TSH 3.30 uIU/mL (0.27-4.20) 06/16/25 00:53 Vitals Last Vital Signs Temp 98.2 F 06/19/25 07:54 Pulse 77 06/19/25 07:54 Resp 23 H 06/19/25 07:54 BP 110/64 06/19/25 07:54 Pulse Ox 96 06/19/25 07:54 O2 Del Method Room Air 06/19/25 07:49 Discharge Plan Discharge Patient Disposition: Home Condition: Stable Prescriptions: New amlodipine 10 mg Tablet 10 mg PO Q24H 300 Days Qty: 300 2RF aspirin 81 mg Tablet,Delayed Release (Dr/Ec) 81 mg PO DAILY 30 Days Qty: 30 0RF atorvastatin 40 mg Tablet 40 mg PO BEDTIME 300 Days Qty: 300 2RF clopidogrel 75 mg Tablet 75 mg PO DAILY 270 Days Qty: 270 0RF Continued (DME) nebulizer and compressor [Portable Nebulizer System] Device See Rx Instructions .ROUTE .MEDSUPPLY Qty: 1 0RF Rx Instructions: As directed (DME) blood-glucose meter [OneTouch Verio Flex Start] Kit See Rx Instructions .Route Qty: 1 0RF Rx Instructions: use three times day (DME) FreeStyle [place] 3 [place] Misc See Rx Instructions .ROUTE .MEDSUPPLY Qty: 1 0RF Rx Instructions: As directed acarbose 100 mg tablet 100 mg PO TID Qty: 270 1RF Rx Instructions: take before food albuterol sulfate 90 mcg/actuation HFA aerosol inhaler 2 puff INHALATION Q6H PRN (Reason: shortness of breath or wheezing) Qty: 18 2RF albuterol sulfate 2.5 mg /3 mL (0.083 %) solution for nebulization 2.5 mg inhalation Q4H PRN (Reason: shortness of breath or wheezing) Qty: 180 2RF fenofibrate nanocrystallized 48 mg tablet 48 mg PO DAILY Qty: 90 1RF furosemide 20 mg tablet 20 mg PO BID PRN (Reason: edema) Qty: 180 1RF insulin lispro [Humalog U-100 Insulin] 100 unit/mL solution 12 - 21 unit SUBCUT TID 30 Days Qty: 45 2RF (DME) insulin syringe-needle U-100 1 mL 31 gauge x 5/16 syringe See Rx Instructions .ROUTE .MEDSUPPLY Qty: 100 5RF Rx Instructions: 5 times day insulin glargine [Lantus U-100 Insulin] 100 unit/mL solution See Rx Instructions SUBCUT DAILY Qty: 40 1RF Rx Instructions: up 40 subcutaneously daily; lisinopril 20 mg tablet 20 mg PO BID Qty: 180 1RF metoprolol tartrate 100 mg tablet 100 mg PO BID Qty: 180 1RF trazodone 150 mg tablet 300 mg PO BEDTIME Qty: 180 1RF (DME) FreeStyle [place] 3 Plus Sensor Device See Rx Instructions .ROUTE .MEDSUPPLY Qty: 2 5RF Rx Instructions: change every 14 days (DME) OneTouch Verio test strips Strip See Rx Instructions .Route Qty: 100 5RF Rx Instructions: use 3 times day (DME) lancets 33 gauge misc See Rx Instructions .Route Qty: 100 5RF Rx Instructions: use 3 times acetaminophen [Tylenol] 325 mg Tablet 325 mg PO QID PRN (Reason: Pain) cinnamon bark-chromium picolin 500-100 mg-mcg Capsule 1 cap PO DAILY cholecalciferol (vitamin D3) [Vitamin D3] 50 mcg (2,000 unit) Tablet 50 mcg PO DAILY One-A-Day Women's Complete 18 mg iron- 400 mcg Tablet 1 tab PO DAILY melatonin [Melatin] 3 mg Tablet 10 mg PO DAILY Pattern Layout Worker OK for DC: Cardiology Discharge Order = DC NOW: Discharge Order (Routine); Ordered 06/19/25 Ordered By: Silvia Williamson Referrals: Winnie Woodward NP [Nurse Practitioner, Cardiology] - 07/01/25 8:30 am Campbell Rao FNP-C [Primary Care Provider, Family Practice] - 06/22/25 11:20 am Eddie Lopez MD [Physician, Cardiology] - 1 month Discharge Diet: Advance as tolerated, Usual diet and Cardiac Discharge Activity: Resume usual activity and Increase activity as tolerated Patient Instructions: Coronary Angioplasty (DC), Chest Pain Stoplight, Opioid Safety, Post Angiogram Home Care Instructions, Patient Portal & Gerard Instructions Discharge Attestations Time Spent in Discharge Care*: greater than 30 min Specific Discharge Activities: educating patient, educating and/or supporting family/caregiver, discussing with pcp/other providers, discussing with outpatient case manager/social workers/dc planners, documenting/other paperwork and evaluating patient/reviewing data Time Spent in Smoking Cessation: 3 to 10 minutes Status at Discharge: Cognitive status at discharge: cognitively intact , Behavioral status at discharge: cooperative , Overall status at discharge: patient is back to baseline Quality Metrics Clinical Quality Measures [ No reported AMI, CVA or VTE this stay] Coding Level of Care Code 52252 Diagnoses Abnormal nuclear stress test R94.39 CAD (coronary artery disease) I25.10 COPD exacerbation J44.1 Type 2 diabetes mellitus with diabetic polyneuropathy, with long-term current use of insulin E11.42; Z79.4 Diabetes mellitus type: type 2 Diabetes mellitus complication detail: with polyneuropathy Degenerative disc disease, thoracic M51.34 Mixed hyperlipidemia E78.2 Hyperlipidemia type: mixed hyperlipidemia Lumbar post-laminectomy syndrome M96.1 Neuropathy G62.9 History of cigarette smoking Z87.891
[2025-06-19 11:35] VITALS: BP 103/61; PULSE 69; RESP 20; O2SAT 95
--- NOTE | 2025-06-19 12:01 | PM.PN ---
Subjective Subjective: The patient underwent left heart catheterization with left and right coronary angiogram and LV angiogram yesterday. She was found to have a high-grade lesion in the PLV branch of the right coronary artery. The stented areas were found to be patent. There is a mild diffuse in-stent stenosis in the RCA, in the region of the proximal stented segment Patient is remaining stable with no recurrence of chest pain. Vital signs are remaining stable. No fever. Ambulating on telemetry without any problems Medications: Medication Review Details: Current Medications Acetaminophen (Acetaminophen 325 Mg Tablet) 650 mg PO Q6H PRN PRN Reason: Mild/Mod Pain Or Temp >/= 101 Last Admin: 06/18/25 20:35 Dose: 650 mg Acetaminophen (Acetaminophen 325 Mg Tablet) 650 mg PO Q6H PRN PRN Reason: MILD PAIN Hydrocodone Bitart/Acetaminophen (Hydrocodone-Acetaminophen 5-325 Mg Tablet) 1 tab PO Q4H PRN PRN Reason: MODERATE TO SEVERE PAIN Al Hydrox/Mg Hydrox/Simethicone (Sltw-Ijw-Wgeyzkbou-Cameron 30 Ml Udc) 30 ml PO Q15M PRN PRN Reason: INDIGESTION Albuterol/Ipratropium (Ipratropium-Albuterol 3 Ml Neb) 3 ml INHALATION Q6H.RESP [facility] Last Admin: 06/19/25 07:49 Dose: Not Given Amlodipine Besylate (Amlodipine 10 Mg Tablet) 10 mg PO Q24H [facility] Last Admin: 06/19/25 00:40 Dose: 10 mg Aspirin (Aspirin 81 Mg Ec Tablet) 81 mg PO DAILY [facility] Last Admin: 06/19/25 08:33 Dose: 81 mg Atorvastatin Calcium (Atorvastatin 40 Mg Tablet) 40 mg PO BEDTIME [facility] Last Admin: 06/18/25 21:10 Dose: 40 mg Atropine Sulfate (Atropine 1 Mg/Ml Sdv 1 Ml) 0.5 mg IVP PRN PRN PRN Reason: Symptomatic bradycardia Benzonatate (Benzonatate 100 Mg Capsule) 100 mg PO TID PRN PRN Reason: COUGH Last Admin: 06/17/25 22:38 Dose: 100 mg Clopidogrel Bisulfate (Clopidogrel 75 Mg Tablet) 75 mg PO DAILY [facility] Last Admin: 06/19/25 08:33 Dose: 75 mg Denture Adhesive (Efferdent Effervescent) 1 each DENTAL PRN PRN PRN Reason: DISINFECTION Last Admin: 06/16/25 22:07 Dose: 1 each Enoxaparin Sodium (Enoxaparin 40 Mg/0.4 Ml Syringe) 40 mg SUBCUT Q24H [facility] Last Admin: 06/19/25 08:32 Dose: 40 mg Fenofibrate (Fenofibrate 48 Mg Tablet) 48 mg PO DAILY [facility] Last Admin: 06/19/25 08:33 Dose: 48 mg Glucagon (Glucagon 1 Mg/Ml Kit 1 Ml) 1 mg IM ONCE PRN; Protocol PRN Reason: Adult Acute Hypoglycemia Nursing Prot. Dextrose (D5w) 500 mls @ 0 mls/hr IV ONCE PRN; Protocol PRN Reason: Adult Acute Hypoglycemia Prot Dextrose (D10w) 125 mls @ 750 mls/hr IV PRN PRN; Protocol PRN Reason: Adult Acute Hypoglycemia Nursing Protocol Dextrose (D10w) 250 mls @ 1,000 mls/hr IV PRN PRN; Protocol PRN Reason: Adult Acute Hypoglycemia Nursing Protocol Insulin Glargine (Insulin Glargine 100 Units/1 Ml) 20 unit SUBCUT BEDTIME [facility] Last Admin: 06/18/25 21:11 Dose: 20 unit Insulin Human Lispro (Insulin Lispro 100 Unit/1 Ml) 0 unit SUBCUT TIDWM [facility]; Protocol Last Admin: 06/19/25 08:32 Dose: 4 unit Lisinopril (Lisinopril 20 Mg Tablet) 20 mg PO Q12H [facility] Last Admin: 06/19/25 08:33 Dose: 20 mg Magnesium Hydroxide (Magnesium Hydroxide 30 Ml Udc) 30 ml PO DAILY PRN PRN Reason: CONSTIPATION Metoprolol Tartrate (Metoprolol Tartrate 50 Mg Tablet) 100 mg PO Q12H [facility] Last Admin: 06/19/25 08:33 Dose: 100 mg Morphine Sulfate (Morphine 4 Mg/Ml Sdv 1 Ml) 2 mg IVP Q4H PRN PRN Reason: SEVERE PAIN Last Admin: 06/16/25 22:07 Dose: 2 mg Naloxone HCl (Naloxone 0.4 Mg/Ml Sdv) 0.1 mg IVP Q2M PRN PRN Reason: RESPIRATORY RATE < 8/MIN Nitroglycerin (Nitroglycerin 0.4 Mg Sublingual Tablet) 0.4 mg SUBLINGUAL Q5M PRN PRN Reason: CHEST PAIN Last Admin: 06/17/25 13:32 Dose: 0.4 mg Nitroglycerin (Nitroglycerin 0.4 Mg Sublingual Tablet) 0.4 mg SUBLINGUAL Q5M PRN PRN Reason: CHEST PAIN Ondansetron HCl (Ondansetron 2 Mg/Ml Sdv 2 Ml) 4 mg IVP Q8H PRN PRN Reason: vomiting, or N/V if npo Ondansetron HCl (Ondansetron 2 Mg/Ml Sdv 2 Ml) 4 mg IVP Q2M PRN PRN Reason: NAUSEA Pantoprazole Sodium (Pantoprazole 40 Mg Sdv) 40 mg IVP Q12H [facility] Last Admin: 06/19/25 11:46 Dose: Not Given Sucralfate (Sucralfate 1 Gm/10 Ml Oral Liq Udc) 1 gm PO Q6H [facility] Last Admin: 06/19/25 04:48 Dose: Not Given Temazepam (Temazepam 15 Mg Capsule) 15 mg PO BEDTIME PRN PRN Reason: INSOMNIA Trazodone HCl (Trazodone 150 Mg Tablet) 300 mg PO BEDTIME [facility] Last Admin: 06/18/25 21:10 Dose: 300 mg Vitals/I&O/Wt Last Vital Signs Temp 98.2 F 06/19/25 07:54 Pulse 69 06/19/25 11:35 Resp 20 H 06/19/25 11:35 BP 103/61 06/19/25 11:35 Pulse Ox 95 06/19/25 11:35 O2 Del Method Room Air 06/19/25 07:49 06/18/25 06/19/25 06/19/25 22:59 06:59 14:59 Intake Total 2720 / 2720 100 / 2820 480 / 480 Balance 2720 / 2720 100 / 2820 480 / 480 Weight last 48 hrs Weight 239 lb 9.6 oz Physical Exam Narrative: GENERAL: The patient is alert and oriented times three. Not in any acute distress. Moderate obesity HEENT: No significant pallor, icterus or lymphadenopathy.Oral cavity: There are no mucous membrane lesions. NECK: Trachea appears to be central. No masses noted. No JVD or thyromegaly appreciated. RESPIRATORY: Chest is symmetrical. No intercostals muscle retraction or any accessory muscle activation. There is no chest wall tenderness. Breath sounds are heard bilaterally. No rales or rhonchi heard. No evidence of any consolidation. BREASTS: Deferred. HEART: The heart sounds are normal. No S3 or S4. No significant murmurs. No pericardial rub ABDOMEN: No vessel pulsations or distention. No tenderness. No organomegaly appreciated. Bowel sounds are normally heard. : Deferred. RECTAL: Deferred. LYMPHATIC: No lymphadenopathy noted in the neck. EXTREMITIES: The peripheral pulses are palpable bilaterally, slightly weak. The right groin has no hematoma or bleeding. MUSCULOSKELETAL: No acute joint deformities or swelling SKIN: There are no significant rashes or ecchymosis NEUROPSYCHIATRIC: The patient is alert and oriented x3. Appears to be in a good mood. No tremors or rigidity noted. Data 06/19/25 05:07 06/19/25 05:07 Other Labs: Laboratory Last Values WBC 9.02 10^3/uL (3.29-11.43) 06/19/25 05:07 Corrected WBC Cancelled 06/15/25 18:56 RBC 4.39 10^6/uL (3.85-5.65) 06/19/25 05:07 Hgb 13.30 g/dL (11.27-16.99) 06/19/25 05:07 Hct 40.7 % (36-47) 06/19/25 05:07 MCV 92.7 fl (85-98) 06/19/25 05:07 MCH 30.3 pg (27-33) 06/19/25 05:07 MCHC 32.7 g/dL (30-55) 06/19/25 05:07 RDW 13.7 % (12.1-15.1) 06/19/25 05:07 Plt Count 262 10^3/cmm (157-399) 06/19/25 05:07 MPV 9.5 fL (7.4-10.4) 06/19/25 05:07 Gran % Cancelled 06/15/25 18:56 Neut % (Auto) 46.9 % 06/19/25 05:07 Lymph % (Auto) 37.1 % 06/19/25 05:07 [place] % (Auto) 10.2 % 06/19/25 05:07 Eos % (Auto) 5.0 % 06/19/25 05:07 Baso % (Auto) 0.6 % 06/19/25 05:07 Neut # (Auto) 4.23 10^3/uL (1.8-7.7) 06/19/25 05:07 Lymph # (Auto) 3.4 10^3/uL (0.8-4.8) 06/19/25 05:07 [place] # (Auto) 0.9 10^3/uL (0.2-0.9) 06/19/25 05:07 Eos # (Auto) 0.5 10^3/uL (0.0-0.8) 06/19/25 05:07 Baso # (Auto) 0.1 10^3/uL (0.0-0.1) 06/19/25 05:07 Absolute Gran (auto) Cancelled 06/15/25 18:56 Nucleated RBC % (auto) 0 % 06/19/25 05:07 Nucleated RBCs # 0.0 /100WBC 06/19/25 05:07 APTT 48.8 SECONDS (23.9-36.7) H 06/18/25 13:19 Sodium 142 mmol/L (136-145) 06/19/25 05:07 Potassium 4.1 mmol/L (3.5-5.1) 06/19/25 05:07 Chloride 107 mmol/L (98-107) 06/19/25 05:07 Carbon Dioxide 24 mmol/L (22-29) 06/19/25 05:07 Anion Gap 15.1 (5-19) 06/19/25 05:07 BUN 18 mg/dL (8-23) 06/19/25 05:07 Creatinine 1.1 mg/dL (0.5-0.9) H 06/19/25 05:07 GFR Calculation 49.8 mL/min (90-130) L 06/19/25 05:07 Glucose 179 mg/dL (65-115) H 06/19/25 05:07 POC Glucose 204 mg/dL (70-110) H 06/19/25 11:16 Estimat Average Glucose 146 06/16/25 00:53 Hemoglobin A1c 6.7 % (4.0-6.0) H 06/16/25 00:53 Calculated Osmolality 300 mOsm/kg (285-295) H 06/19/25 05:07 Calcium 8.6 mg/dL (8.5-10.5) 06/19/25 05:07 Total Bilirubin 0.4 mg/dL (0.15-1.2) 06/19/25 05:07 AST 14 U/L (0-32) 06/19/25 05:07 ALT 13 U/L (0-33) 06/19/25 05:07 Alkaline Phosphatase 45 U/L (35-105) 06/19/25 05:07 Troponin T Baseline 16 ng/L (0-10) H 06/15/25 18:56 Troponin T 120 Minute 15.32 ng/L (0-10) H 06/15/25 20:45 Delta Troponin T -0.68 ABS# (0-10) L 06/15/25 20:45 Troponin T Hi Sens 6Hr 12.36 ng/L (0-10) H 06/16/25 00:53 Troponin T Hi Sens 6Hr Delta -3.64 ng/L (0-12) L 06/16/25 00:53 NT-Pro-B Natriuret Pep 161 pg/mL (0-125) H 06/16/25 00:53 Total Protein 7.0 g/dL (6.6-8.7) 06/19/25 05:07 Albumin 3.6 g/dL (3.5-5.2) 06/19/25 05:07 Globulin 3.4 g/dL (1.3-4.6) 06/19/25 05:07 Triglycerides 169 mg/dL (0-150) H 06/16/25 00:53 Cholesterol 159 mg/dL (0-200) 06/16/25 00:53 LDL Cholesterol, Calc 87 mg/dL (50-129) 06/16/25 00:53 HDL Cholesterol 38 mg/dL (60-100) L 06/16/25 00:53 LDL/HDL Ratio 2.29 RATIO (0.00-3.22) 06/16/25 00:53 Cholesterol/HDL Ratio 4.18 mg/dL (0.0-4.40) 06/16/25 00:53 Lipase 53 U/L (13-60) 06/15/25 18:56 TSH 3.30 uIU/mL (0.27-4.20) 06/16/25 00:53 A&P Assessment and plan 1. Atherosclerosis of [place] coronary artery of [place] heart with unstable angina pectoris: This patient had a PCI of the LAD and the right coronary artery in the past. She had a moderate disease in the circumflex artery with the last angiogram. Possibility of progression of the disease in this vessel and possible restenosis of the LAD lesion are considerations. In order to further evaluate the coronary status, she requires a cardiac catheterization. Cardiac catheterization yesterday revealing a high-grade lesion in the PLV branch of the right coronary artery. Patient underwent a PCI of this lesion 2. Bleeding disorder: I reviewed the patient's medical records especially from 2013 and 2014. She had the initial PCI in May 2014,. She was given heparin and Plavix at that time. The second PCI was in October 2015. This time also, she had Plavix and heparin. There was no documentation of bleeding at that time. Had a long discussion with her . Has been suggesting that the bleeding started after several months of taking the Plavix. 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 So far she has no bleeding. 3. Mixed hyperlipidemia: Continue on the current medications. 4. Benign essential hypertension with target blood pressure below 140/90: Currently the blood pressure is under control. 5. Type 2 diabetes mellitus with diabetic polyneuropathy, with long-term current use of insulin: The blood sugar seems to be fairly under control. 6. History of cigarette smoking: Patient is known to have COPD. She uses bronchodilators off and on. Plan: After much discussion, it was decided to keep the patient on Plavix and aspirin at least for a month. Then we may take her off the aspirin and continue on the Plavix. Importance of medication compliance were discussed with the patient. If she continues to remain stable, may be discharged home today. Appointment the [facility] to be seen by nurse practitioner in 1 week. Appointment with me in the office in 2 months. PDMP PDMP Reviewed: Not Reviewed Attestations Medical Necessity Statement*: If the patient continues to remain stable, may be discharged home today Coding Level of Care Code 26670 Diagnoses Atherosclerosis of [place] coronary artery of [place] heart with unstable angina pectoris I25.110 [place] vs. transplanted heart: [place] heart Bleeding disorder D69.9 Mixed hyperlipidemia E78.2 Hyperlipidemia type: mixed hyperlipidemia Benign essential hypertension with target blood pressure below 140/90 I10 Type 2 diabetes mellitus with diabetic polyneuropathy, with long-term current use of insulin E11.42; Z79.4 Diabetes mellitus complication detail: with polyneuropathy Diabetes mellitus type: type 2 History of cigarette smoking Z87.891
--- NOTE | 2025-06-19 12:15 | PC.NURSE ---
discharge instructions given and explained to pt and spouse.they verb understanding of instructions.discharged via w/c to exit at this time.spouse to drive pt home
== END 2025-06-19 12:16 | disposition home or self-care (01) | DRG 322 ==
LOC: ER 21:29 → CSU 22:27
PROVIDERS: Emergency Medicine; Internal Medicine Cardiovascular Disease; Admitting Provider Family Medicine; Emergency Provider Emergency Medicine; PCP Nurse Practitioner; Visit Provider Student in an Organized Health Care Education/Training Program
PROC: 4A023N7 Measurement of Cardiac Sampling and Pressure, Left Heart, Percutaneous Approach (ICD-10-PCS; principal; 2025-06-18 08:30)
PROC: 027034Z Dilation of Coronary Artery, One Artery with Drug-eluting Intraluminal Device, Percutaneous Approach (ICD-10-PCS; 2025-06-18 08:30)
DX: I25.110 Atherosclerotic heart disease of native coronary artery with unstable angina pectoris (principal); D68.9 Coagulation defect, unspecified; J44.9 Chronic obstructive pulmonary disease, unspecified; E11.42 Type 2 diabetes mellitus with diabetic polyneuropathy; E11.22 Type 2 diabetes mellitus with diabetic chronic kidney disease; I12.9 Hypertensive chronic kidney disease with stage 1 through stage 4 chronic kidney disease, or unspecified chronic kidney disease; N18.9 Chronic kidney disease, unspecified; M51.34 Other intervertebral disc degeneration, thoracic region; E78.2 Mixed hyperlipidemia; I16.0 Hypertensive urgency; Y71.8 Miscellaneous cardiovascular devices associated with adverse incidents, not elsewhere classified; Z87.891 Personal history of nicotine dependence; Z95.5 Presence of coronary angioplasty implant and graft; I25.2 Old myocardial infarction; Z79.4 Long term (current) use of insulin
CPT/HCPCS: 36415; 36416; 71045; 78452; 80053; 80061; 82962; 83036; 83690; 83880; 84443; 84484; 85025; 85347; 85730; 93005; 93017; 93306; 93458; 94640; 94664; 96372; 96374; 96375; 99152; 99153; 99285; A9500; C1725; C1769; C1874; C1887; C1894; C9600; G0378; J1200; J1644; J1650; J1815; J2250; J2270; J2470; J2785; J3010; J3490; J7030; J9999; Q9967

== ENCOUNTER → 2025-07-01 08:28 | Outpatient (BNVA) | payer MEDICARE, SELFPAY | PROVIDERS: PCP Nurse Practitioner; Visit Provider Nurse Practitioner Family | DX: I25.110 Atherosclerotic heart disease of native coronary artery with unstable angina pectoris (principal); I10 Essential (primary) hypertension; J44.9 Chronic obstructive pulmonary disease, unspecified; E78.2 Mixed hyperlipidemia; M54.9 Dorsalgia, unspecified; K85.90 Acute pancreatitis without necrosis or infection, unspecified; Z79.02 Long term (current) use of antithrombotics/antiplatelets; Z79.82 Long term (current) use of aspirin; Z72.0 Tobacco use; Z95.5 Presence of coronary angioplasty implant and graft; Z86.16 Personal history of COVID-19; I25.2 Old myocardial infarction | CPT/HCPCS: 36415; 80053; 83036; 85025; 99213 ==

== ENCOUNTER → 2025-09-25 09:31 | Outpatient (BNVA) | payer MEDICARE, SELFPAY | PROVIDERS: PCP Nurse Practitioner; Visit Provider Nurse Practitioner | DX: E11.9 Type 2 diabetes mellitus without complications (principal); Z79.4 Long term (current) use of insulin; E11.42 Type 2 diabetes mellitus with diabetic polyneuropathy | CPT/HCPCS: 80053; 80061; 81000; 83036; 85025 ==

== ENCOUNTER → 2025-10-28 10:30 | Outpatient (BNVA) | payer MEDICARE, SELFPAY | PROVIDERS: PCP Nurse Practitioner; Visit Provider Nurse Practitioner | DX: E11.42 Type 2 diabetes mellitus with diabetic polyneuropathy (principal); Z79.4 Long term (current) use of insulin | CPT/HCPCS: 80048; 81000; 85025 ==

== ENCOUNTER → 2025-11-02 10:44 | Outpatient (BNVA) | payer MEDICARE, SELFPAY | PROVIDERS: PCP Nurse Practitioner; Visit Provider Dermatology | DX: L08.9 Local infection of the skin and subcutaneous tissue, unspecified (principal); F42.4 Excoriation (skin-picking) disorder; Z85.828 Personal history of other malignant neoplasm of skin | CPT/HCPCS: 11104; 99214 ==

== ENCOUNTER → 2025-11-09 10:35 | Outpatient (BNVA) | payer MEDICARE, SELFPAY | PROVIDERS: PCP Nurse Practitioner; Visit Provider Nurse Practitioner | DX: D72.829 Elevated white blood cell count, unspecified (principal) | CPT/HCPCS: 85025 ==